=== PATIENT | female | born 1940 | race Caucasian/White ===

== ENCOUNTER 2019-02-03 13:10 | Inpatient (IN) ==
[2019-02-03] MEDS ORDERED: Clindamycin 900 MG/50 ML 900 MG/50 ML IV.SOLN IVPB ONE (13:26)
[2019-02-03] MEDS ORDERED: Ringers Solution, Lactated 1,000 ML IVC SCH ×2 (13:30→23:45)
[2019-02-03 14:23] LABS: White Blood Count 6.7 K/mcL (4.3-11.1)
[2019-02-03 14:24] LABS: Basophils % 0.5 %; Eosinophils # 0.1 K/mcL (0.0-0.6); Eosinophils % 1.1 %; Hematocrit 37.5 % (35.3-44.9); Hemoglobin 12.2 g/dL (11.5-15.4); Immature Granulocytes % 0.2 % (0-4); Lymphocytes # 0.6 K/mcL (0.6-4.6); Lymphocytes % 8.7 %; Mean Corpuscular HGB Conc 32.5 g/dL (31.6-35.5); Mean Corpuscular Hemoglobin 28.4 pg (28.0-33.3); Mean Corpuscular Volume 87.2 fL (83.0-100.0); Mean Platelet Volume 9.9 fL (9.4-12.4); Monocytes # 0.6 K/mcL (0.0-1.3); Monocytes % 8.7 %; Neutrophils # 5.4 K/mcL (1.6-8.9); Platelet Count 251 K/mcL (140-400); Red Cell Distribution Width 14.2 % (11.5-14.5); Segmented Neutrophils % 80.8 %
--- NOTE | 2019-02-03 14:56 | History & Physical Report ---
Date of Encounter: 02/03/19 Time of Encounter: 14:56 24 Hour HP Update - Instructions Instructions: If the History and Physical is less than 30 days old and was completed prior to A.M. admission and or procedure and has NOT been updated on calendar day of procedure please complete this update prior to performing procedure. - Update Patient reports changes in Medical Condition: No Changes in examination, assessment, or condition: No Changes in Medication: No Preop tests/diagnostics Reviewed: Yes Surgery Remains Indicated: Yes Consent for Planned Operative Procedure(s) Verified: Yes - Pre-Operative Checklist Preoperative Checklist Indicated: No Prophylactic Antibiotic Ordered: Yes Is VTE Prophylaxis Indicated?: Yes
--- NOTE | 2019-02-03 15:04 | Anesthesia Evaluation PreOp ---
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) Anesthesia History: Past Anesthesia (L- hip Nail, MICHELE, knee) : No Alcohol Use: none Drug use: none Medications and Allergies HYDROcodone/Acet 5/325 mg [[place] 5-325 mg] 1 tab PO Q6H PRN 4 Days #16 tab 02/01/19 [Rx] hydroCHLOROthiazide [Hydrochlorothiazide] 12.5 mg PO DAILY 02/03/19 [History] Allergy/AdvReac Type Severity Reaction Status Date / Time Penicillins Allergy Hives Verified 02/03/19 13:34 - Meds/Allergy Pre-op Review Medications Reviewed: Yes Allergies Reviewed: Yes Beta Blockers on Current Med List: No Anesthesia Results - Labs 02/03/19 14:03 Laboratory Tests 01/11/19 02/03/19 09:54 14:03 WBC 6.7 Hgb 12.2 Hct 37.5 Plt Count 251 Sodium 138 Potassium 3.9 Chloride 102 Carbon Dioxide 29 BUN 11 Creatinine 0.68 - Imaging EKG: report reviewed (SR RBBB) Additional studies: Echocardiogram Name: Nallely Topete Date of Study: 05/28/2018 EV/EV echocardiogram Impressions: LVEF 60%. Mild left ventricular diastolic dysfunction. Normal right ventricular structure and function. Mild-moderate mitral regurgitation. Mild aortic regurgitation. Mild-moderate tricuspid regurgitation. 01/11/19 EFD-70% No Ischemia Max HR-98 Anesthesia Exam O2 Sat Height 1.57 m Weight 99.79 kg O2 Sat by Pulse Oximetry 97 Vital Signs Temp Pulse Resp BP Pulse Ox 97.8 F 97 18 149/82 97 02/03/19 13:23 02/03/19 13:23 02/03/19 13:23 02/03/19 13:23 02/03/19 13:23 NPO (# of Hours): > 8 hrs Pain Scale: 0 Pain Scale Used: Numeric (1 - 10) - HEENT Pupil (Motor): Pupils equal, EOMI Mallampati: III Teeth: Edentulous Oral Opening: Greater than 3 - LOG SORTER LOC: Oriented LOG SORTER Motor: Normal RUE, Normal LUE, Normal RLE, Normal LLE, Normal Face LOG SORTER Sensory: Normal: RUE, LUE, RLE, LLE, Face - Cardiac Rhythm: Regular Murmur: None JVD: No Carotid Bruit: No - Pulmonary Breath Sounds: bilateral Clear Respiratory Effort: Symmetrical Anesthesia Assess/Plan ASA Score: 3 Level of consciousness: Cooperative Anesthetic Plan: General, Regional Nerve Block Regional Nerve Block Plan: Supraclavicular Autologous Blood: Yes Monitoring Plan: Standard Monitors Recovery Plan: PACU
[2019-02-03] MEDS ORDERED: *HR* Succinylcholine 200 MG/10 ML VIAL IVP ONE (15:09)
[2019-02-03] MEDS ORDERED: *HR* FentaNYL (PF) 100 MCG/2 ML VIAL ONE (15:09)
[2019-02-03] MEDS ORDERED: Lidocaine -MPF 2% 2 ML VIAL ONE (15:09)
[2019-02-03] MEDS ORDERED: Dexamethasone 4 MG/ML VIAL ONE (15:09)
[2019-02-03] MEDS ORDERED: Ondansetron 4 MG/2 ML VIAL ONE (15:09)
[2019-02-03] MEDS ORDERED: *HR* Midazolam HCl 2 MG/2 ML VIAL ONE (15:10)
[2019-02-03] MEDS ORDERED: *HR* Propofol 200 MG/20 ML VIAL IVP ONE (15:10)
[2019-02-03] MEDS ORDERED: Lidocaine -MPF 4% 5 ML AMPUL ONE (15:12)
[2019-02-03] MEDS ORDERED: Ethanol\\Acetic Acid\\Na Ace\\Ben 1,000 ML IRRIG.SOLN IR ONE (15:14)
[2019-02-03] MEDS ORDERED: *HR* OxyCODONE Immed Rel 5 MG TABLET PO PRN ×2 (15:24→23:45)
[2019-02-03] MEDS ORDERED: *HR* HYDROmorphone (PF) 1 MG/ML SYRINGE IVP PRN (15:24)
[2019-02-03] MEDS ORDERED: *HR* Promethazine 25 MG/ML VIAL IVP PRN (15:24)
[2019-02-03] MEDS ORDERED: Ondansetron 4 MG/2 ML VIAL IVP ONE (15:24)
[2019-02-03] MEDS ORDERED: Ropivacaine/PF 0.5% 30 ML VIAL ONE (15:41)
[2019-02-03] MEDS ORDERED: ROPIVACAINE/PF/NS 0.25% 1 EACH SYRINGE INTRAART ONE (15:41)
--- NOTE | 2019-02-03 16:18 | Anesthesia Procedures ---
Date of Encounter: 02/03/19 Time of Encounter: 16:00 Procedures: Anesthesia - Nerve Block Procedure Date: 02/03/19 Time: 16:00 Allergies/Adv Reactions: PCN Pre-op Diagnosis: Right shoulder rotator cuff arthropathy Surgical Procedure: Right total shoulder replacement, reverse Checklist: Correct Patient Identifier, Correct procedure, History checked Correct side: Left Blood Thinner: No Monitor Applied: EKG, BP, Pulse Oximetry Supplemental Oxygen via Nasal Cannula (L/min): 2 Sedation: Versed (mg): 1 Sedation: Fentanyl (mcg): 100 Indication: Post Op Analgesia Pre-op Neuro Deficits: No Block Type: Supraclavicular, Other (SCP/ICB) Catheter placed: No Sterile Technique: Yes Ultrasound used: Yes Anatomy identified: Yes Visual spread of Local: Yes Neuro Stimulation: No Blood on Needle Aspiration: No Smooth Injection of Local: Yes Pain with Injection of Local: No Prep: Chlorhexadine Needle: 22 x 50 mm Stimuplex Local: Ropivacaine (Ropivicaine 0.5% 30ml supraclavicular, ropivicaine 0.25% 20ml SCP/ICB), Other (Decadron 8mg) Volume (cc): 50 Number of Attempts: 1 Complications: None/effective block Vitals: Vital Signs Temperature 97.8 F 02/03/19 13:23 Pulse Rate 97 02/03/19 13:23 Respiratory Rate 18 02/03/19 13:23 Blood Pressure 149/82 02/03/19 13:23 O2 Sat by Pulse Oximetry 97 02/03/19 13:23 Temperature 97.8 F 02/03/19 13:23 Pulse Rate 95 02/03/19 16:18 Respiratory Rate 18 02/03/19 13:23 Blood Pressure 124/69 02/03/19 16:18 O2 Sat by Pulse Oximetry 98 02/03/19 16:18
--- NOTE | 2019-02-03 16:37 | Electrocardiograph Report ---
[address] [address] Test Date: 2019-02-03 Pat Name: Nallely Topete Department: 106 Room: Gender: F Branch Director: : 1940 Requested By: Afshin Maldonado Order Number: [id number] Reading MD: Afshin Mariano Measurements Intervals [place] Rate: 94 P: 30 CO: 143 QRS: 22 QRSD: 123 T: -15 QT: 361 QTc: 412 Interpretive Statements SINUS RHYTHM RIGHT BUNDLE BRANCH BLOCK Electronically Signed On 02-03-2019 16:36:13 EDT by Afshin Mariano
--- NOTE | 2019-02-03 17:52 | Orthopedic Operative Note ---
Date of procedure: 02/03/19 Pre-op diagnosis: Displaced left comminuted proximal humerus fracture Post-op diagnosis: same Procedure: Procedure: Total Shoulder Replacment Reverse, left Estimated blood loss: 100 cc Hardware: Metal and polyethylene replacement: Arthrex 24, +4, 30 mm, screw glenoid baseplate, 4 locking 5.5 screw, 42+4 glenosphere, 6 humeral stem, poly insert 6 constrained Procedural Notes: Comminuted displaced fracture proximal humerus with complete massive rotator cuff tear chronic Operative procedure: The patient was brought to the operating room and placed on the operating room table. After general anesthesia was administered the operative shoulder was examined. Findings were noted. The patient was placed in the modified beachchair position. All pressure points were padded appropriately. And the head was stabilized in the neutral position. The operative extremity was prepped and draped in the sterile surgical fashion. The patient received IV antibiotics prior to skin incision. A standard deltopectoral approach was made to the operative shoulder. Incision was made to the skin and subcutaneous tissue,hemo stasis was obtained with Bovie cautery. Using careful blunt dissection the cephalic vein was identified and mobilized medially. The deltopectoral interval was developed and the clavipectoral fascia was incised. The patient had a displaced proximal humerus fracture, patient had massive rotator cuff tear associated with this this is most likely chronic based on appearance of the tuberosity. The proximal fragment was removed. Anterior and posterior Bankart retractors were placed to expose the glenoid. The glenoid guide was seated and the centering hole was made. It was reamed with the appropriate reamer. The 24, +4, 30 mm screw, baseplate was seated and secured with 4 locking 5.5 screw. The baseplate was irrigated and dried and the 42+4 Glenosphere was seated and secured with the Myrick taper. The Myrick taper was tested and found to be secure, glenosphere fixation was secondarily secured with the central screw. The humerus was redislocated and prepared with the diaphyseal reamers, followed by a broaching process up to the appropriate size 6 in 20 degrees retroversion. Trial reduction found the shoulder to be relocatable. Trial components were removed and 6 stem was impacted in place when he degrees retroversion. Trial reduction found the shoulder to be relocatable and stable with the appropriate 6 constrained Sadie. Trial component was removed and the real implant was seated and secured the shoulder was reduced. The shoulder had excellent motion and excellent stability and no evidence of dislocation. The deep tissue was irrigated with pulse irrigation. The deltopectoral interval was closed with a running #1 PDS suture, subcutaneous tissue was irrigated and closed with 0 PDS suture, the skin was closed with Dermabond. The patient was placed in a sterile dressing, abduction brace and extubated. The patient was then transferred to the recovery room in stable condition. Anesthesia: GETA Surgeon: Abdifatah Lindsey Was there an ex assistant/program director present: No Estimated blood loss (cc): 100 Condition: stable Disposition: PACU
[2019-02-03] MEDS ORDERED: *HR* Enoxaparin 30 MG/0.3 ML SYRINGE SQ SCH (18:00)
[2019-02-03 19:04] LABS: Hematocrit 37.4 % (35.3-44.9); Hemoglobin 12.2 g/dL (11.5-15.4)
[2019-02-03] MEDS ORDERED: traMADol 50 MG TABLET PO PRN (23:45)
[2019-02-03] MEDS ORDERED: Temazepam 15 MG CAPSULE PO PRN (23:45)
[2019-02-03] MEDS ORDERED: *HR* OxyCODONE/APAP 5/325 TABLET PO PRN (23:45)
[2019-02-03] MEDS ORDERED: Ondansetron 4 MG/2 ML VIAL IVP PRN (23:45)
[2019-02-03] MEDS ORDERED: MOM Conc 10 ML UD.LIQ PO PRN (23:45)
[2019-02-03] MEDS ORDERED: Clindamycin 900 MG/50 ML 900 MG/50 ML IV.SOLN IVPB SCH (23:45)
[2019-02-03] MEDS ORDERED: Sennosides 8.6 MG TABLET PO PRN (23:45)
[2019-02-04] MEDS: Clindamycin 900 MG/50 ML 900 MG/50 ML IV.SOLN IVPB SCH ×2 (00:41→07:29)
--- NOTE | 2019-02-04 02:14 | Anesthesia Evaluation Post Op ---
Date of Encounter: 02/04/19 Time of Encounter: 18:42 - Discharge PostOp Status: Transfer Patient to floor (Patient's vital signs have been reviewed. Patient is stable postoperatively and has adequately recovered from anesthesia. Patient is determined to have stable airway patency and respiratory function including respiratory rate and oxygen saturation. Patient has a stable heart rate, blood pressure and adequate hydration. Patients mental status is acceptable. Patients temperature is appropriate. Pain and nausea are adequately controlled.)
[2019-02-04] MEDS ORDERED: *HR* Enoxaparin 30 MG/0.3 ML SYRINGE SQ SCH (06:00)
--- NOTE | 2019-02-04 06:41 | Orthopedics Progress Note ---
Date of Encounter: 02/04/19 Time of Encounter: 06:41 Subjective Interval history: Patient was seen this morning doing well without complaints. Afebrile vital signs stable. Operative extremity: Neurovascularly intact Dressing clean dry and intact Calves nontender Assessment and plan: Continue with postoperative care Plan for discharge today Objective Vital signs: Vital Signs Temp Pulse Resp BP Pulse Ox 02/04/19 03:40 97.9 F 83 15 132/72 97 02/03/19 22:33 96 02/03/19 19:40 97.5 F L 87 14 126/68 92 02/03/19 19:05 97.5 F L 90 14 144/82 02/03/19 18:52 98.2 F 93 18 143/70 98 02/03/19 18:42 94 18 141/68 98 02/03/19 18:32 98.2 F 92 18 146/61 90 02/03/19 18:22 92 18 152/77 92 02/03/19 18:12 85 16 151/58 94 02/03/19 18:02 98.0 F 82 16 149/64 93 02/03/19 16:47 98 155/73 98 02/03/19 16:32 103 141/71 98 02/03/19 16:18 95 124/69 98 02/03/19 16:06 99 155/69 100 02/03/19 13:23 97.8 F 97 18 149/82 97 Intake and Output 02/03/19 02/03/19 02/04/19 15:59 23:59 07:59 Intake Total 50 / 50 Output Total 100 / 100 Balance -100 / -100 50 / 50 Intake: IV Fluids 50 / 50 Cleocin Premix 900 MG/50 ML 900 50 / 50 mg In 50 ml @ 50 mls/hr IVPB Q8HR [facility] Rx#:[id number] Output: Estimated Blood Loss 100 / 100 Other: # Voids 1 1 Weight 99.79 kg Blood Glucose* 121 124 - Labs CBC & BMP: 02/03/19 18:46 Labs: Abnormal lab results POC Glucose 121 mg/dL (70-99) H 02/03/19 13:54 - VTE Documentation of Mechanical Device: Venous foot pump, device Consult Discharge Plan - Plan Referrals: Álvaro Forrest, CIGARETTE SELLER [Primary Care Provider] - Prescriptions: OxyCODONE Immed Rel [Roxicodone 5 MG] 5 mg PO Q6HR PRN 5 Days #20 tablet PRN Reason: Pain
--- NOTE | 2019-02-04 06:44 | Discharge Summary ---
Orders not resulted at time of discharge: Pending orders 02/03/19 14:59 XR shoulder complete LT [XR] Routine 02/03/19 15:23 US anesthesia pain block [US] Routine 02/03/19 17:38 Surgical Pathology [PTH] Routine 02/04/19 04:00 Basic Metabolic Panel DAILY Hemoglobin and Hematocrit [HEME] DAILY 02/05/19 04:00 Basic Metabolic Panel DAILY Hemoglobin and Hematocrit [HEME] DAILY Date of Encounter: 02/04/19 Time of Encounter: 06:43 - Discharge Diagnosis (1) Displaced fracture of proximal end of left humerus Priority: Primary Status: Acute (2) Status post reverse total shoulder replacement Priority: Primary Status: Acute Qualifiers: Laterality: left Qualified Code(s): Z96.612 - Presence of left artificial shoulder joint (3) Diabetes mellitus type 2 in obese Priority: Secondary Status: Chronic (4) Morbid obesity with BMI of 40.0-44.9, adult Priority: Secondary Status: Chronic - Hospital Course Hospital course: Ms. Topete is a 78 year old female The patient had an uneventful postoperative course. They received antibiotics and physical therapy and were discharged in stable condition. There will fol low-up in the office in 2 weeks. - Time Spent with Patient Total time spent providing and/or coordinating discharge services: - Discharge Medications Prescriptions: New OxyCODONE Immed Rel [Roxicodone 5 MG] 5 mg PO Q6HR PRN 5 Days #20 tablet PRN Reason: Pain Continued hydroCHLOROthiazide [Hydrochlorothiazide] 12.5 mg PO DAILY Discontinued HYDROcodone/Acet 5/325 mg [[place] 5-325 mg] 1 tab PO Q6H PRN 4 Days #16 tab PRN Reason: Pain Home Medications: OxyCODONE Immed Rel [Roxicodone 5 MG] 5 mg PO Q6HR PRN 5 Days #20 tablet 02/03/19 [Rx] hydroCHLOROthiazide [Hydrochlorothiazide] 12.5 mg PO DAILY 02/03/19 [History] Allergies/Adverse Reactions: Allergy/AdvReac Type Severity Reaction Status Date / Time Penicillins Allergy Hives Verified 02/03/19 13:34 Primary care physician: Álvaro Forrest CNP Consults: 02/03/19 23:45 Consult to Occupational Therapy [CONS] Routine Comment: post shoulder surgery Reason for Consult: post shoulder surgery Does patient have active BEDREST order?: No Is patient medically & hemodynamically stable?: Yes Consult to Physical Therapy [CONS] Routine Comment: post shoulder surgery Reason for Consult: post shoulder surgery Does patient have active BEDREST order?: No Is patient medically & hemodynamically stable?: Yes Consult to Research [employer] [CONS] Routine Reason for SW Consult: shoulder surgery RT Post Op Consult [CONS] Routine - VTE Documentation of Mechanical Device: Venous foot pump, device Labs on day of discharge: Labs from last 24 hours 02/03/19 02/03/19 02/03/19 18:46 14:03 13:54 WBC 6.7 RBC 4.30 Hgb 12.2 12.2 Hct 37.4 37.5 MCV 87.2 MCH 28.4 MCHC 32.5 RDW 14.2 Plt Count 251 MPV 9.9 Immature Gran % 0.2 Seg Neutrophils % 80.8 Lymphocytes % 8.7 Monocytes % 8.7 Eosinophils % 1.1 Basophils % 0.5 Neutrophils # 5.4 Lymphocytes # 0.6 Monocytes # 0.6 Eosinophils # 0.1 Basophils # 0.0 POC Glucose 121 H - Patient Status Disposition: Home, Self-Care Condition: Good Functional capacity at discharge: independent ambulation Overall status at discharge: patient is progressing back to baseline - Discharge Instructions Follow Up With: Álvaro Forrest, TELEVISION PRESENTER [Primary Care Provider] -
[2019-02-04 06:57] LABS: Hematocrit 38.8 % (35.3-44.9)
[2019-02-04 07:09] LABS: BUN/Creatinine Ratio 19 (6-26); Blood Urea Nitrogen 10 mg/dL (8-23); Calcium 9.6 mg/dL (8.6-10.3); Carbon Dioxide 25 mEq/L (23-29); Chloride 104 mEq/L (98-107); Glucose 130 mg/dL (70-105); Osmolality,Calculated 289 (280-300); Potassium 4.9 mEq/L (3.5-5.1); Sodium 139 mEq/L (136-145); eGFR For African Americans > 60 (> 60); eGFR For Non-African Americans > 60 (> 60)
[2019-02-04] MEDS ORDERED: hydroCHLOROthiazide 25 MG TABLET PO SCH (09:00)
[2019-02-04 10:54] VITALS: BP 100/58
--- NOTE | 2019-02-04 18:19 | Event Note ---
Date of Encounter: 02/04/19 Time of Encounter: 11:30 PCR - POD#1 s/p left TSR reverse 02/03 secondary to fracture Patient seen at bedside, without complaints. A&O x 3 Afebrile, vital signs stable. dressings c/d/i, NV intact distally Labs reviewed. H/H - 13.0/38.8 stable, asymptomatic Pain control: adequate Participating in PT. NO SHOULDER MOTION, MUST STAY IN BRACE. may do gentle elbow and wrist motion She is recommended for ECF as she is unsteady on her feet and typically uses a walker but is now NWB to LUE. practiced with hemiwalker today. Patient and family both adament that she will go home today and refusing ECF despite reviewing risks of falling. Patient feels she has enough support at home and agreeable to not get up or walk without assistance. Dr. Lindsey notified and ok with her going home. All questions and concerns addressed. Educated on use of incentive spirometer. Encouraged ambulation and proper hydration. Patient educated on post-operative restrictions and post-operative care. Assessment and plan: Continue with postoperative care Discharge plan: Home with home health, discharge today.
== END 2019-02-04 13:40 | disposition home or self-care (01) | DRG 483 ==
LOC: 3NENU 13:10 → SAMDAY 13:10 → 3NENU 13:11 → SAMDAY 02-04 13:40 → 3NENU 02-11 05:16
PROVIDERS: ADMIT Orthopaedic Surgery; ATTEND Orthopaedic Surgery

== ENCOUNTER 2019-04-17 17:10 | Inpatient (IN) ==
[2019-04-17 21:02] LABS: Basophils % 0.3 %; Eosinophils % 0.3 %; Hematocrit 33.6 % (35.3-44.9); Hemoglobin 10.6 g/dL (11.5-15.4); Immature Granulocytes % 0.7 % (0-4); Lymphocytes # 0.7 K/mcL (0.6-4.6); Lymphocytes % 9.5 %; Mean Corpuscular HGB Conc 31.5 g/dL (31.6-35.5); Mean Corpuscular Hemoglobin 27.5 pg (28.0-33.3); Mean Platelet Volume 10.1 fL (9.4-12.4); Monocytes # 0.8 K/mcL (0.0-1.3); Monocytes % 10.3 %; Neutrophils # 5.9 K/mcL (1.6-8.9); Platelet Count 259 K/mcL (140-400); Red Blood Count 3.86 M/mcL (3.82-4.97); Red Cell Distribution Width 14.8 % (11.5-14.5); Segmented Neutrophils % 78.9 %; White Blood Count 7.5 K/mcL (4.3-11.1)
[2019-04-17 21:09] LABS: INR 1.2; Prothrombin Time 13.8 Seconds (9.4-12.1)
[2019-04-17 21:21] LABS: Alanine Aminotransferase 17 Units/L (7-52); Albumin/Globulin Ratio 1.1 (1.1-2.2); Alkaline Phosphatase 94 Units/L (34-104); Aspartate Amino Transferase 15 Units/L (13-39); BUN/Creatinine Ratio 37 (6-26); Blood Urea Nitrogen 13 mg/dL (8-23); Calcium 9.1 mg/dL (8.6-10.3); Carbon Dioxide 29 mEq/L (23-29); Chloride 101 mEq/L (98-107); Globulin 2.8 g/dL (2.4-3.5); Glucose 111 mg/dL (70-105); Osmolality,Calculated 283 (280-300); Potassium 4.5 mEq/L (3.5-5.1); Sodium 136 mEq/L (136-145); Total Protein 5.8 g/dL (6.4-8.9); eGFR For African Americans > 60 (> 60); eGFR For Non-African Americans > 60 (> 60)
[2019-04-17] MEDS ORDERED: Naloxone 0.4 MG/ML INJ IVP PRN (23:36)
[2019-04-17] MEDS ORDERED: Ondansetron 4 MG/2 ML VIAL IVP PRN (23:36)
[2019-04-17] MEDS ORDERED: Acetaminophen 325 MG TABLET PO PRN (23:36)
[2019-04-17] MEDS ORDERED: traMADol 50 MG TABLET PO PRN (23:36)
[2019-04-17] MEDS ORDERED: Dextrose Gel 15 GM/37.5 ML TUBE PO PRN ×2 (23:42)
[2019-04-17] MEDS ORDERED: D5% in Water 1,000 ML IVC PRN (23:42)
[2019-04-17] MEDS ORDERED: *HR* Dextrose 50 % in Water (Syg) 50 ML SYRINGE IVP PRN (23:42)
--- NOTE | 2019-04-18 00:20 | Internal Med History&Physical ---
Date of Encounter: 04/17/19 Time of Encounter: 22:30 Internal Medicine - H&P: HPI Chief complaint: Left arm pain Admitted From: Emergency Dept Plans for Post Hospital Care: Home History of present illness: Ms. Topete is a 78 year old female w/PMH of skin cancer of the face and diabetes controlled by diet presents from the ED w/CC of weakness for the past several weeks as well as poor appetite. Patient and daughter report that the pt. was attempting to get out of her chair today and d/t her weakness she slid out of th e chair onto the floor. Daughter denies hard fall, LOC, or striking her head. Patient then began having left arm pain and edema which was no alleviated by anything. Patient's daughter reports the pt. had total left shoulder replacement in January 2019. Pt. was told on f/u that the shoulder had rotated out since the surgery. Patient reports only mild pain on exam. Patient reports recent UTI and pain in bilateral feet from the way she was laying on them when she slid out of her chair but denies recent illness, fever, chills, nausea, vomiting, headache, changes in vision, unusual bleeding, CP, SOB, cough, chest congestion, abdominal pain, diarrhea, constipation, numbness, tingling, dizziness, lightheadedness, pre-syncope, or syncope. Past Med Surg Social Fam HX - Past Medical History Source: patient, old records reviewed, obtained from family Medical history: cancer (Face & Cervical/Uterine), other Additional medical history: SKIN CANCER OF FACE. Cervical/Uterine cancer Psychiatric history: no psych history - Past Surgical History Surgical History: hip replacement, hysterectomy, orthopedic, other (Left shoulder) Additional surgical history: LEFT KNEE/LEFT HIP SX. cervical CA. left shoulder - Social History Smoking Status: Never smoker Smokeless Tobacco Status: No Alcohol use: none Drug use: none Current living situation: Home, With Family Activity Level: Independent ambulation, Uses cane/walker Recent Out of Country Travel Within the Last 8 Weeks: No Exposure or Possible Exposure to Illness During Travel: No - Family History Father Race: Family Member Ethnicity: Non- Twin of Family Member: Yes, Fraternal Living Status: Age at : 57 Cause of : COPD Hx Family Cardiac Disorders: Yes (NM, CAD) Hx Family Respiratory Disorders: Yes (COPD) Mother Race: Twin of Family Member: Yes, Fraternal Living Status: Age at : 58 Cause of : Metastatic cancer Hx Family Cancer: Yes (Renal/Metastatic) Hx Family Endocrine Disorder: Yes (DM) Brother Race: Family Member Ethnicity: Non- Living Status: Age at : 60 Cause of : DM complications Hx Family Endocrine Disorder: Yes (DM) Sister Race: Family Member Ethnicity: Non- Living Status: Age at : 35 Cause of : Massive NM Hx Family Cardiac Disorders: Yes (NM @ 35 yo) Grandmother Race: Family Member Ethnicity: Non- Living Status: Cause of : DM complications Hx Family Endocrine Disorder: Yes (DM) Internal Medicine - H&P: Meds Cholecalciferol (D-3) [Vitamin D] 2,000 unit PO DAILY tablet 04/17/19 [Rx] Enoxaparin [Lovenox] 40 mg SQ DAILY 30 Days syr 04/17/19 [Rx] Ondansetron [Zofran] 4 mg IVP Q4H PRN vial 04/17/19 [Rx] Potassium Chloride 10 meq PO BIDWM tab.er.prt 04/17/19 [Rx] Allergy/AdvReac Type Severity Reaction Status Date / Time Amoxicillin Allergy Hives Verified 04/12/19 08:05 Penicillins Allergy Hives Verified 04/12/19 08:05 All Systems PM: A 10-system review of systems was performed and is negative for pertinent findings except as documented above in the HPI. - Constitutional Constitutional: as per HPI, fatigue, weakness, no chills, no fever(s), no night sweats - EENT Eyes: no change in vision, no discharge, no pain, no photophobia Ears: no ear discharge, no ear pain, no tinnitus Nose, mouth and throat: no dysphagia, no nasal discharge, no neck pain, no sore throat - Breasts Breasts: as per HPI - Cardiovascular Cardiovascular ROS IM: no chest pain, no diaphoresis, no dyspnea, no lightheadedness, no palpitations, no syncope - Respiratory Respiratory: no cough, no dyspnea, no wheezing, no excessive phlegm production - Gastrointestinal Gastrointestinal: as per HPI, no abdominal pain, no diarrhea, no hematemesis, no hematochezia, no melena, no nausea, no vomiting - Genitourinary Genitourinary: no change in urinary stream, no dysuria, no flank pain, no hematuria Menstruation: as per HPI - Musculoskeletal Musculoskeletal ROS IM: as per HPI, limited range of motion, other (Edema of LUE), no numbness, no tingling - Integumentary Integumentary IM: as per HPI, other (Scaling on LUE), no rash, no unusual bruising - Neurological Neurological ROS: no confusion, no convulsions, no focal weakness, no numbness, no tingling, no tremor(s) - Psychiatric Psychiatric: as per HPI - Endocrine Endocrine IM: as per HPI - Hematologic/Lymphatic Hematologic/Lymphatic: no easy bruising - Allergic/Immunologic Allergic/Immunologic: as per HPI - Constitutional Vitals: Temp Pulse Resp BP Pulse Ox 98.3 F 88 20 150/71 96 04/17/19 22:48 04/17/19 22:48 04/17/19 22:48 04/17/19 22:48 04/17/19 22:48 General appearance: Present: cooperative, A&O X 3, pleasant, no acute distress, obese, answers questions appropriately Exam: Patient examined at bedside. Patient resting in bed reporting no pain currently. Patient denies any other sx or complaints on examination. VS: 98.3F temp, HR 80, RR 20, BP 150/71, SPO2 96% on room air. - Head Head exam: Present: atraumatic, normocephalic - Eye Eye exam: Present: PERRL, conjuntiva pink, sclera anicteric Pupils: Present: PERRL - ENT ENT exam: Present: normal exam - Neck Neck exam general surgery: Present: normal inspection, supple, trachea midline. Absent: lymphadenopathy - Respiratory Respiratory exam: Present: CTAB. Absent: accessory muscle use, rales, rhonchi, wheezes - Cardiovascular Cardiovascular exam: Present: RRR, +S1, +S2. Absent: diastolic murmur, gallop, rubs, systolic murmur - GI/Abdominal GI/Abdominal exam: Present: normal bowel sounds, soft, no peritoneal signs. Absent: distended, tenderness - Rectal Rectal exam: Present: deferred - Additional comments: exam deferred. - Extremities Exam Extremities exam: Present: tenderness (LUE), warm, radial pulses palpable and symmetrical. Absent: calf tenderness, cyanotic, pedal edema - Back Exam Back exam: Present: normal inspection - Neurological Exam Neurological exam: Present: alert, CN II-XII intact, oriented X3, no focal deficits. Absent: pronater drift, facial droop, speech deficit - Psychiatric Psychiatric exam: Present: normal affect, normal mood - Skin Skin exam: Present: dry, intact Internal Med - H&P Results - Labs CBC & Chem 7: 04/17/19 20:42 04/17/19 20:42 Labs: Short CBC 04/17/19 Range/Units 20:42 WBC 7.5 (4.3-11.1) K/mcL Hgb 10.6 L (11.5-15.4) g/dL Hct 33.6 L (35.3-44.9) % Plt Count 259 (140-400) K/mcL Neutrophils # 5.9 (1.6-8.9) K/mcL BMP 04/17/19 20:42 Sodium 136 Potassium 4.5 Chloride 101 Carbon Dioxide 29 BUN 13 Creatinine 0.35 L Glucose 111 H Calcium 9.1 Liver Function 04/17/19 Range/Units 20:42 Total Bilirubin 1.0 (0.3-1.0) mg/dL AST 15 (13-39) Units/L ALT 17 (7-52) Units/L Alkaline Phosphatase 94 (34-104) Units/L Albumin 3.0 L (3.5-5.7) g/dL - Impressions ITS Impressions Chest X-Ray 04/17/19 20:13 IMPRESSION: 1. Bibasilar atelectasis. 2. Cardiomegaly. 3. Stable displacement/subluxation of the left shoulder arthroplasty. D/ / 04/17/2019 21:34:48 Hilaria Montes MD / [facility] Interpreting Provider: Hilaria Montes MD - Diagnostic Studies Chest x-ray Additional comments: Impressions Chest X-Ray 04/17/19 20:13 IMPRESSION: 1. Bibasilar atelectasis. 2. Cardiomegaly. 3. Stable displacement/subluxation of the left shoulder arthroplasty. D/ / 04/17/2019 21:34:48 Hilaria Montes MD / [facility] Interpreting Provider: Hilaria Montes MD Other Images Additional comments: Impressions EXAMINATION: 2 XRAY VIEWS OF THE LEFT FOREARM 04/17/2019 1:14 pm COMPARISON: None HISTORY: ORDERING SYSTEM PROVIDED HISTORY: bruising and swelling post fall Initial exam FINDINGS: Generalized soft tissue edema about the forearm. The bone mineralization is decreased. Incomplete evaluation of oblique distal humeral diaphyseal fracture. XR/XR forearm LT IMPRESSION: Soft tissue swelling with no fracture of the forearm. Incomplete evaluation of distal humeral fracture. D/ / 04/17/2019 15:07:04 Warner Ruelas MD / [facility] Interpreting Provider: Warner Ruelas MD INATION: 2 XRAY VIEWS OF THE LEFT HUMERUS 04/17/2019 1:14 pm COMPARISON: None. HISTORY: ORDERING SYSTEM PROVIDED HISTORY: bruising and swelling post fall Initial FINDINGS: Total left shoulder arthroplasty. The positioning of the prosthesis is stable. There is an oblique fracture of the mid-distal margin of the humeral diaphysis with angular deformity and overriding. XR/XR humerus LT IMPRESSION: Overriding angulated distal humeral diaphyseal fracture. D/ / 04/17/2019 15:07:10 Warner Ruelas MD / [facility] Interpreting Provider: Warner Ruelas MD - Assessment and Plan (1) Displaced fracture of proximal end of left humerus Current Visit: Yes Status: Acute Assessment and plan: Acute displaced fracture of the proximal end of the left humerus. 2V XR of the left humerus shows total left shoulder arthroplasty. The positioning of the prosthesis is stable. There is no oblique fracture of the mid distal margin of the humeral diaphysis with angular deformity and overriding. Orthopedic consult ordered and was discussed when pt. was at [facility]. NPO now. Stair-step pain medications for pain mgmt. Patient's daughter reports the patient is opioid naive and cannot tolerate high doses of opioids. Bed rest. Falls/safety precautions. Up with assist. EKG for pre-surgery shows . Limited Echocardiogram ordered d/t previous on 05/28/2018 which showed LVEF of 60%, mild left ventricular diastolic dysfunction, normal right ventricular structure and function, mild to moderate mitral regurgitation, mild aortic regurgitation, mild to moderate tricuspid regurgitation, and no pulmonary hypertension. 1V CXR shows bibasilar atelectasis, cardiomegaly, and stable displacement/subluxation of the left shoulder arthroplasty. Patient is high risk for further morbidity and complications d/t current fx of left humerus, current displacement/subluxation of left shoulder arthroplasty, failure to thrive, generalized weakness, acute anemia, DM, and obesity. Inpatient. (2) Generalized weakness Current Visit: Yes Status: Acute Assessment and plan: Acute weakness for the past several weeks w/report of reduced PO intake. Patient reports poor appetite. Nutrition consult ordered for PO supplementation. Pt. prefers chocolate Ensure/Boost. Falls/safety precautions and up with assist. Strict I&O. (3) Failure to thrive in adult Current Visit: Yes Status: Acute Assessment and plan: Acute weakness for the past several weeks w/report of reduced PO intake. Patient reports poor appetite. Nutrition consult ordered for PO supplementation. Pt. prefers chocolate Ensure/Boost. Falls/safety precautions and up with assist. Strict I&O. (4) Anemia Current Visit: Yes Status: Acute Assessment and plan: Hx of acute anemia. Hgb 10.6, up from 9.7 on 04/16. Hct 33.6, up from 30.9 on 04/16. Monitor pt. closely for signs of bleeding. Monitor f/u labs. Type and screen ordered for post-surgery monitoring. Qualifiers: Anemia type: unspecified type Qualified Code(s): D64.9 - Anemia, unspecified (5) Diabetes mellitus type 2 in obese Current Visit: Yes Status: Chronic Assessment and plan: Hx of diabetes controlled by diet. A1c in a.m. labs. BG checks Q6HR while NPO and ACHS when no longer NPO. Low-dose correction sliding scale insulin Q6HR while NPO and ACHS when no longer NPO. Hypoglycemic protocol. (6) DVT prophylaxis Current Visit: Yes Status: Acute Assessment and plan: Bilateral SCDs on LEs for DVT prophylaxis d/t impending surgery. - Time Spent With Patient Total time spent is greater than 50% in coordination of care (as documented) at patient's floor/unit and/or counseling patient: Greater than 35 minutes
[2019-04-18 01:28] LABS: Bilirubin,Urine Small (Negative); Blood,Urine Small (Negative); Clarity,Urine Clear (Clear); Color,Urine Dark Yellow (Yellow); Glucose,Urine (UA) Normal (Normal); Ketones,Urine 15 mg/dL (Negative); Leukocyte Esterase,Urine Trace (Negative); Nitrite,Urine Negative (Negative); PH,Urine 5.5 pH Units (5.0-8.0); Protein,Urine Trace mg/dL (Neg-Trace); Specific Gravity,Urine 1.027 (1.010-1.025); Urobilinogen,Urine Normal (Normal)
[2019-04-18 01:29] LABS: Bacteria,Urine None Seen per hpf (None-Few); Hyaline Casts,Urine None Seen per lpf (None-Few); Squamous Epithelial Cell,Urine Many per lpf (None-Few)
[2019-04-18] MEDS: Insulin LISPRO 300 UNITS/3 ML VIAL SQ SCH ×5 (01:31→21:01)
[2019-04-18] MEDS: *HR* OxyCODONE Immed Rel 5 MG TABLET PO PRN ×3 (01:33→21:05)
[2019-04-18 01:41] LABS: RBC,Urine 0-3 per hpf (0-3)
[2019-04-18 02:23] LABS: Hematocrit 34.1 % (35.3-44.9); Hemoglobin 10.7 g/dL (11.5-15.4); Mean Corpuscular HGB Conc 31.4 g/dL (31.6-35.5); Mean Corpuscular Hemoglobin 27.4 pg (28.0-33.3); Mean Corpuscular Volume 87.4 fL (83.0-100.0); Platelet Count 267 K/mcL (140-400); Red Cell Distribution Width 14.8 % (11.5-14.5); White Blood Count 8.3 K/mcL (4.3-11.1)
[2019-04-18 02:43] LABS: BUN/Creatinine Ratio 30 (6-26); Blood Urea Nitrogen 13 mg/dL (8-23); Carbon Dioxide 30 mEq/L (23-29); Chloride 99 mEq/L (98-107); Cholesterol 162 mg/dL (< 200); Glucose 122 mg/dL (70-105); HDL Cholesterol 27 mg/dL (40-59); LDL Cholesterol,Calculated 106 mg/dL (0-99); Magnesium 2.2 mg/dL (1.6-2.6); Osmolality,Calculated 287 (280-300); Potassium 4.5 mEq/L (3.5-5.1); Sodium 138 mEq/L (136-145); Triglycerides 144 mg/dL (< 150); eGFR For African Americans > 60 (> 60); eGFR For Non-African Americans > 60 (> 60)
[2019-04-18] MEDS ORDERED: Isovue-370 500 ML BOTTLE IVP ONE (05:05)
[2019-04-18 08:32] LABS: Estimated Average Glucose 117 mg/dl
--- NOTE | 2019-04-18 09:53 | Orthopedics Progress Note ---
Date of Encounter: 04/18/19 Time of Encounter: 09:49 Subjective Principal diagnosis: Distal humerus fracture, status post total shoulder Interval history: The patient complains of left elbow pain.. Afebrile vital signs are stable. There is swelling and ecchymosis at the distal elbow on the left.. There is no pain with passive range of motion at the elbow, wrist, or digits. Sensation is intact in the left upper extremity. She is neurovascularly intact with regard to bilateral upper extremities. Assessment : Distal humerus fracture status post total shoulder replacement.. Plan mobilize ,continue analgesics, elevation, surgical fixation per Dr. Lindsey. I have low suspicion for compartment syndrome. Objective Vital signs: Vital Signs Temp Pulse Resp BP Pulse Ox 04/18/19 06:52 97.7 F 68 17 161/82 98 04/18/19 05:19 98.4 F 86 20 140/77 96 04/17/19 22:48 98.3 F 88 20 150/71 96 04/17/19 20:20 98.4 F 92 16 133/71 94 Intake and Output 04/17/19 04/18/19 04/18/19 23:59 07:59 15:59 Intake Total 150 / 150 Output Total 400 / 400 Balance 150 / 150 -400 / -400 Intake: Oral 150 / 150 Output: Catheter 400 / 400 Other: # Bowel Movements 0 Weight 96.8 kg Blood Glucose* 107 99 - Labs CBC & BMP: 04/18/19 01:31 04/18/19 01:31 Labs: Abnormal lab results Hgb 10.7 g/dL (11.5-15.4) L 04/18/19 01:31 Hct 34.1 % (35.3-44.9) L 04/18/19 01:31 MCH 27.4 pg (28.0-33.3) L 04/18/19 01:31 MCHC 31.4 g/dL (31.6-35.5) L 04/18/19 01:31 RDW 14.8 % (11.5-14.5) H 04/18/19 01:31 PT 13.8 Seconds (9.4-12.1) H 04/17/19 20:42 Carbon Dioxide 30 mEq/L (23-29) H 04/18/19 01:31 Creatinine 0.44 mg/dL (0.60-1.20) L 04/18/19 01:31 BUN/Creatinine Ratio 30 (6-26) H 04/18/19 01:31 Glucose 122 mg/dL (70-105) H 04/18/19 01:31 Hemoglobin A1c 5.7 % (-5.6) H 04/18/19 01:31 Serum Total Protein 5.8 g/dL (6.4-8.9) L 04/17/19 20:42 Albumin 3.0 g/dL (3.5-5.7) L 04/17/19 20:42 LDL Cholesterol, Calc 106 mg/dL (0-99) H 04/18/19 01:31 HDL Cholesterol 27 mg/dL (40-59) L 04/18/19 01:31 Cholesterol/HDL Ratio 6.0 (0-4.9) H 04/18/19 01:31 Ur Specific Amelia 1.027 (1.010-1.025) H 04/18/19 01:15 Urine Ketones 15 mg/dL (Negative) H 04/18/19 01:15 Urine Blood Small (Negative) H 04/18/19 01:15 Urine Bilirubin Small (Negative) H 04/18/19 01:15 Ur Leukocyte Esterase Trace (Negative) H 04/18/19 01:15 Urine Microscopic WBC 3-5 per hpf (0-3) H 04/18/19 01:15 Ur Squamous Epith Cells Many per lpf (None-Few) H 04/18/19 01:15 Ur Culture Indicated? YES (NO) A 04/18/19 01:15 Consult Discharge Plan - Plan Referrals: NONE,PCP [Primary Care Provider] -
--- NOTE | 2019-04-18 10:02 | Internal Med Progress Note ---
<Jacek Anderson I - Last Filed: 04/18/19 17:48> Hospitalist Progress Note - Encounter Date of Encounter: 04/18/19 Time of Encounter: 08:50 - Subjective Interval History: Ms. Topete is a 78 year old female with PMH of skin cancer of the face and she is post total shoulder replacement that had rotated out . presented with left arm and elbow pain and swelling after she was attempting to get out of her chair today and d/t her weakness she slid out of the chair onto the floor . Patient reports recent UTI one week ago that was treated with antibiotics but she continues to feel week with poor appetite . today patient is seen and examined , she appears tired , her left upper extrimity is swelling tender with active ROM , denies fever, chills, nausea, vomiting, headache, changes in vision, unusual bleeding, CP, SOB, cough, chest congestion, abdominal pain, diarrhea, constipation, numbness, tingling, dizziness, lightheadedness, pre-syncope, or syncope. - Exam Vitals: Temp Pulse Resp BP Pulse Ox 97.7 F 68 17 161/82 98 04/18/19 06:52 04/18/19 06:52 04/18/19 06:52 04/18/19 06:52 04/18/19 06:52 Exam: General: no acute distress , A&AX3 HEENT: Atraumatic, Normocephaly, sclera unicteric Neck: supple , Full ROM , trachea midline Cardiac: RRR , S1+. S2+ Lungs: Normal Breath Sounds Bilaterally, No Wheeze, Rales, Rhonchi Abdomen: Soft, Non-Tender ,no organomegaly , +bowel sounds Extremities: swelling and echymosis of left upper extrimity with tenderness to palpatiion , intact sensation . Normal Pulses Psychiatric : normal affect, normal mood Nuero : alert, normal gait, oriented X3 - Assessment and Plan (1) Displaced fracture of proximal end of left humerus Current Visit: Yes Status: Acute Assessment and Plan: Patient is post total shoulder replacement that had rotated out presented with left arm and elbow pain and swelling after she was attempting to get out of her chair . today vitals stable except high BP PE positive for left arm and forearm swelling anf tenderness , warm and blue di scolored . otherwise nuerovasculary intact in bilateral upper extremity with low suspecion for compartment syndrom due to intact sensation and pulse X ray of left arm : oblique distal humeral diaphyseal fracture. X ray of left forearm : Generalized soft tissue edema about the forearm. CT of left arm : Acute obliquely oriented midshaft humeral fracture with large interposed hematoma and some muscle expansion likely due to interstitial muscle hemorrhage. orthopedic is consulted , with paln to mobilize , continue analgesia , elevation and surgical fixation per Dr Lindsey ECHO is pending for per surgery evaluation (2) Status post reverse total shoulder replacement Current Visit: No Status: Acute Assessment and Plan: Patient is post total shoulder replacement that had rotated out 2V XR of the left humerus shows total left shoulder arthroplasty. (3) Morbid obesity with BMI of 40.0-44.9, adult Current Visit: No Status: Chronic - Time Spent with Patient Total time spent is greater than 50% in coordination of care (as documented) at patient's floor/unit and/or counseling patient: Internal Medicine: Result - Labs CBC & Chem 7: 04/18/19 01:31 04/18/19 01:31 Labs: Short CBC 04/17/19 04/18/19 Range/Units 20:42 01:31 WBC 7.5 8.3 (4.3-11.1) K/mcL Hgb 10.6 L 10.7 L (11.5-15.4) g/dL Hct 33.6 L 34.1 L (35.3-44.9) % Plt Count 259 267 (140-400) K/mcL Neutrophils # 5.9 (1.6-8.9) K/mcL BMP 04/17/19 04/18/19 20:42 01:31 Sodium 136 138 Potassium 4.5 4.5 Chloride 101 99 Carbon Dioxide 29 30 H BUN 13 13 Creatinine 0.35 L 0.44 L Glucose 111 H 122 H Calcium 9.1 9.0 Liver Function 04/17/19 Range/Units 20:42 Total Bilirubin 1.0 (0.3-1.0) mg/dL AST 15 (13-39) Units/L ALT 17 (7-52) Units/L Alkaline Phosphatase 94 (34-104) Units/L Albumin 3.0 L (3.5-5.7) g/dL Urine 04/18/19 Range/Units 01:15 Urine Color Dark Yellow (Yellow) Urine Clarity Clear (Clear) Urine pH 5.5 (5.0-8.0) pH Units Ur Specific Cash 1.027 H (1.010-1.025) Urine Protein Trace (Neg-Trace) mg/dL Urine Glucose (UA) Normal (Normal) mg/dL - ABG Interpretation ABG results: PT/INR, D-dimer PT 13.8 Seconds (9.4-12.1) H 04/17/19 20:42 - Impressions Impressions Chest X-Ray 04/17/19 20:13 IMPRESSION: 1. Bibasilar atelectasis. 2. Cardiomegaly. 3. Stable displacement/subluxation of the left shoulder arthroplasty. D/ / 04/17/2019 21:34:48 Hilaria Montes MD / [facility] Interpreting Provider: Hilaria Montes MD Upper Extremity CT 04/18/19 05:05 IMPRESSION: Acute obliquely oriented midshaft humeral fracture with large interposed hematoma and some muscle expansion likely due to interstitial muscle hemorrhage. Compartment syndrome is not excluded on the basis of this exam; consider correlation with compartment pressures. D/ / 04/18/2019 08:56:36 Obdulio Mcneill / [facility] Interpreting Provider: Obdulio Mcneill Consult Discharge Plan - Plan Referrals: NONE,PCP [Primary Care Provider] - <Baltazar Singh - Last Filed: 04/18/19 19:15> Hospitalist Progress Note - Encounter Date of Encounter: 04/18/19 - Exam Vitals: Temp Pulse Resp BP Pulse Ox 100.5 F H 104 20 143/78 93 04/18/19 18:40 04/18/19 18:40 04/18/19 18:40 04/18/19 18:40 04/18/19 18:40 - Assessment and Plan (1) Displaced fracture of proximal end of left humerus Current Visit: Yes Status: Acute (2) Diabetes mellitus type 2 in obese Current Visit: Yes Status: Chronic (3) Generalized weakness Current Visit: Yes Status: Acute (4) Failure to thrive in adult Current Visit: Yes Status: Acute (5) Anemia Current Visit: Yes Status: Acute (6) DVT prophylaxis Current Visit: Yes Status: Acute - Time Spent with Patient Total time spent is greater than 50% in coordination of care (as documented) at patient's floor/unit and/or counseling patient: Internal Medicine: Result - Labs CBC & Chem 7: 04/18/19 01:31 04/18/19 01:31 Labs: Short CBC 04/17/19 04/18/19 Range/Units 20:42 01:31 WBC 7.5 8.3 (4.3-11.1) K/mcL Hgb 10.6 L 10.7 L (11.5-15.4) g/dL Hct 33.6 L 34.1 L (35.3-44.9) % Plt Count 259 267 (140-400) K/mcL Neutrophils # 5.9 (1.6-8.9) K/mcL BMP 04/17/19 04/18/19 20:42 01:31 Sodium 136 138 Potassium 4.5 4.5 Chloride 101 99 Carbon Dioxide 29 30 H BUN 13 13 Creatinine 0.35 L 0.44 L Glucose 111 H 122 H Calcium 9.1 9.0 Liver Function 04/17/19 Range/Units 20:42 Total Bilirubin 1.0 (0.3-1.0) mg/dL AST 15 (13-39) Units/L ALT 17 (7-52) Units/L Alkaline Phosphatase 94 (34-104) Units/L Albumin 3.0 L (3.5-5.7) g/dL Urine 04/18/19 Range/Units 01:15 Urine Color Dark Yellow (Yellow) Urine Clarity Clear (Clear) Urine pH 5.5 (5.0-8.0) pH Units Ur Specific Cash 1.027 H (1.010-1.025) Urine Protein Trace (Neg-Trace) mg/dL Urine Glucose (UA) Normal (Normal) mg/dL - ABG Interpretation ABG results: PT/INR, D-dimer PT 13.8 Seconds (9.4-12.1) H 04/17/19 20:42 - Impressions Impressions Chest X-Ray 04/17/19 20:13 IMPRESSION: 1. Bibasilar atelectasis. 2. Cardiomegaly. 3. Stable displacement/subluxation of the left shoulder arthroplasty. D/ / 04/17/2019 21:34:48 Hilaria Montes MD / [facility] Interpreting Provider: Hilaria Montes MD Upper Extremity CT 04/18/19 05:05 IMPRESSION: Acute obliquely oriented midshaft humeral fracture with large interposed hematoma and some muscle expansion likely due to interstitial muscle hemorrhage. Compartment syndrome is not excluded on the basis of this exam; consider correlation with compartment pressures. D/ / 04/18/2019 08:56:36 Obdulio Mcneill / [facility]aitlyn Interpreting Provider: Obdulio Mcneill Echocardiogram Limited Views 04/18/19 20:10 Impressions: LVEF 65%. Normal LV chamber size, wall thickness and function. Findings: Study Quality * Technically adequate exam. ECG Findings * Normal sinus rhythm. Left Ventricle * LVEF 65%. * Normal LV chamber size, wall thickness and function. Right Ventricle * Normal right ventricular structure and function. Pericardium * The pericardium appears normal. - Attending Attestation I saw evaluated and examined this patient and reviewed objective data including labs and my medical decision-making was reviewed with the Resident Physician. I agree with the documented findings, disposition and treatment plan as described except to any changes set forth below. We independently had [id number] contact with the patient. <Jacek Anderson I - Last Filed: 04/18/19 17:48> (2) Status post reverse total shoulder replacement Qualifiers: Laterality: left Qualified Code(s): Z96.612 - Presence of left artificial dariusz ulder joint <Ghanem,Rishi Rheem - Last Filed: 04/18/19 19:15> (5) Anemia Qualifiers: Anemia type: unspecified type Qualified Code(s): D64.9 - Anemia, unspecified
[2019-04-18] MEDS ORDERED: hydrALAZINE 10 MG TABLET PO PRN (10:11)
[2019-04-18] MEDS ORDERED: hydrALAZINE 10 MG TABLET PO ONE (10:11)
[2019-04-18] MEDS ORDERED: *HR* Promethazine 25 MG/ML VIAL IVP ONE (20:56)
[2019-04-18] MEDS: levoFLOXacin 750 MG/150 ML 750 MG/150 ML BAG IVPB SCH (21:06)
[2019-04-19 04:28] LABS: Basophils % 0.1 %; Eosinophils % 0.2 %; Hematocrit 33.2 % (35.3-44.9); Hemoglobin 10.4 g/dL (11.5-15.4); Immature Granulocytes % 0.7 % (0-4); Lymphocytes # 0.6 K/mcL (0.6-4.6); Lymphocytes % 3.4 %; Mean Corpuscular HGB Conc 31.3 g/dL (31.6-35.5); Mean Corpuscular Hemoglobin 27.9 pg (28.0-33.3); Monocytes # 1.1 K/mcL (0.0-1.3); Neutrophils # 16.3 K/mcL (1.6-8.9); Platelet Count 254 K/mcL (140-400); Red Blood Count 3.73 M/mcL (3.82-4.97); Red Cell Distribution Width 14.9 % (11.5-14.5); Segmented Neutrophils % 89.6 %
[2019-04-19 04:37] LABS: White Blood Count 18.2 K/mcL (4.3-11.1)
[2019-04-19 04:50] LABS: BUN/Creatinine Ratio 44 (6-26); Blood Urea Nitrogen 17 mg/dL (8-23); Calcium 9.2 mg/dL (8.6-10.3); Carbon Dioxide 29 mEq/L (23-29); Chloride 100 mEq/L (98-107); Glucose 99 mg/dL (70-105); Osmolality,Calculated 286 (280-300); Potassium 4.3 mEq/L (3.5-5.1); Sodium 137 mEq/L (136-145); eGFR For African Americans > 60 (> 60); eGFR For Non-African Americans > 60 (> 60)
--- NOTE | 2019-04-19 06:50 | Orthopedics Progress Note ---
Date of Encounter: 04/19/19 Time of Encounter: 06:49 Subjective Principal diagnosis: Distal humerus fracture, status post total shoulder Interval history: Patient seen this morning, admitted to [facility] with UTI, patient diagnosed with a periprosthetic humerus fracture after being admitted for a few days, patient seen this morning, left upper extremity positive swelling, neurovascular intact. No concern for compartment syndrome. Patient has loosening of humeral component as well as fracture of distal humerus. Recommendations for revision of humeral component and open reduction internal fixation of humerus fracture. Patient will be scheduled for surgery tomorrow. We reviewed the risks and benefits as well as recovery. All questions were answered. The patient agreed to this treatment plan and acknowledged an understanding of the treatment plan as described. Objective Vital signs: Vital Signs Temp Pulse Resp BP Pulse Ox 04/19/19 03:30 98.3 F 90 17 118/65 98 04/18/19 22:50 99.6 F 93 17 103/69 97 04/18/19 22:43 99.1 F 04/18/19 20:56 103 F H 04/18/19 18:40 100.5 F H 104 20 143/78 93 04/18/19 15:24 99.0 F 102 14 120/74 92 04/18/19 10:31 98.0 F 90 16 130/76 96 04/18/19 06:52 97.7 F 68 17 161/82 98 Intake and Output 04/18/19 04/18/19 04/19/19 15:59 23:59 07:59 Intake Total 40 / 540 500 / 540 Output Total 250 / 800 150 / 800 225 / 225 Balance -210 / -260 350 / -260 -225 / -225 Intake: IV Fluids 150 / 150 Levaquin Premix 750mg/150 mL 150 / 150 750 mg In 150 ml @ 100 mls/hr IVPB DAILY DANIELLA Rx#:[id number] Oral 40 / 390 350 / 390 Output: Catheter 250 / 800 150 / 800 225 / 225 Other: Meal Lunch Dinner Percent of Meal Consumed 5% 0% # Bowel Movements 0 0 Weight 96.3 kg Blood Glucose* 104 134 Patient Weight 04/19/19 23:59 Weight 96.3 kg - Labs CBC & BMP: 04/19/19 04:14 04/19/19 04:14 Labs: Abnormal lab results WBC 18.2 K/mcL (4.3-11.1) H D 04/19/19 04:14 RBC 3.73 M/mcL (3.82-4.97) L 04/19/19 04:14 Hgb 10.4 g/dL (11.5-15.4) L 04/19/19 04:14 Hct 33.2 % (35.3-44.9) L 04/19/19 04:14 MCH 27.9 pg (28.0-33.3) L 04/19/19 04:14 MCHC 31.3 g/dL (31.6-35.5) L 04/19/19 04:14 RDW 14.9 % (11.5-14.5) H 04/19/19 04:14 Neutrophils # 16.3 K/mcL (1.6-8.9) H 04/19/19 04:14 PT 13.8 Seconds (9.4-12.1) H 04/17/19 20:42 Carbon Dioxide 30 mEq/L (23-29) H 04/18/19 01:31 Creatinine 0.39 mg/dL (0.60-1.20) L 04/19/19 04:14 BUN/Creatinine Ratio 44 (6-26) H 04/19/19 04:14 Glucose 122 mg/dL (70-105) H 04/18/19 01:31 POC Glucose 120 mg/dL (70-99) H 04/18/19 16:55 Hemoglobin A1c 5.7 % (-5.6) H 04/18/19 01:31 Serum Total Protein 5.8 g/dL (6.4-8.9) L 04/17/19 20:42 Albumin 3.0 g/dL (3.5-5.7) L 04/17/19 20:42 LDL Cholesterol, Calc 106 mg/dL (0-99) H 04/18/19 01:31 HDL Cholesterol 27 mg/dL (40-59) L 04/18/19 01:31 Cholesterol/HDL Ratio 6.0 (0-4.9) H 04/18/19 01:31 Ur Specific [place] 1.027 (1.010-1.025) H 04/18/19 01:15 Urine Ketones 15 mg/dL (Negative) H 04/18/19 01:15 Urine Blood Small (Negative) H 04/18/19 01:15 Urine Bilirubin Small (Negative) H 04/18/19 01:15 Ur Leukocyte Esterase Trace (Negative) H 04/18/19 01:15 Urine Microscopic WBC 3-5 per hpf (0-3) H 04/18/19 01:15 Ur Squamous Epith Cells Many per lpf (None-Few) H 04/18/19 01:15 Ur Culture Indicated? YES (NO) A 04/18/19 01:15 Consult Discharge Plan - Plan Referrals: NONE,PCP [Primary Care Provider] -
--- NOTE | 2019-04-19 07:33 | Internal Med Progress Note ---
<Jacek Anderson I - Last Filed: 04/19/19 18:30> Hospitalist Progress Note - Encounter Date of Encounter: 04/19/19 Time of Encounter: 08:30 - Subjective Interval History: Patient was seen and examined today , still dyspnic and complain of left arm pain and swelling , supposed to have surgery to fix her # tomorrow . she has dry cough with no sputum production . denies fever , no chest pain , no N/V/D/ or constipation . - Exam Vitals: Temp Pulse Resp BP Pulse Ox 98.5 F 94 18 121/68 98 04/19/19 07:00 04/19/19 07:00 04/19/19 07:00 04/19/19 07:00 04/19/19 07:00 Exam: General: no acute distress , A&AX3 HEENT: Atraumatic, Normocephaly, sclera unicteric Neck: supple , Full ROM , trachea midline Cardiac: RRR , S1+. S2+ Lungs: Normal Breath Sounds Bilaterally, No Wheeze, Rales, Rhonchi Abdomen: Soft, Non-Tender ,no organomegaly , +bowel sounds Extremities: swelling and echymosis of left upper extrimity with tenderness to palpatiion , intact sensation . Normal Pulses Psychiatric : normal affect, normal mood Nuero : alert, normal gait, oriented X3 - Assessment and Plan (1) Displaced fracture of proximal end of left humerus Current Visit: Yes Status: Acute Assessment and Plan: -Patient is post total shoulder replacement that had rotated out presented with left upper extremity pain and swelling -nuerovasculary intact with low suspecion for compartment syndrom due to intact sensation and pulse -X ray of left arm : oblique distal humeral diaphyseal fracture. -X ray of left forearm : Generalized soft tissue edema about the forearm. -CT of left arm : Acute obliquely oriented midshaft humeral fracture with large interposed hematoma and some muscle expansion likely due to interstitial muscle hemorrhage. - Ortho recommend revision of humeral component and open reduction internal fixation of humerus fracture. - Patient will be scheduled for surgery tomorrow. -ECHO is pending for per surgery evaluation (2) Sepsis Current Visit: Yes Status: Acute Assessment and Plan: Patient met sepsis criteria yesterday with T 103 , HR 104, RR20 ,WBC 18.2 could be due to peum[place] or UTI or fracture side she is clinically stable , vitals noted for tachycardia and she is on 2 liter oxygen lactic acid 0.8 04/18/2019 blood cultures are pending urine culture is negative nasal swab for MRSA CXR There are small bilateral pleural effusions seen on the lateral view, with bibasilar airspace disease which could represent atelectasis or pneumonia, left greater than right. on levoquin , today day 2 (3) Status post reverse total shoulder replacement Current Visit: No Status: Acute Assessment and Plan: Patient is post total shoulder replacement that had rotated out 2V XR of the left humerus shows total left shoulder arthroplasty. (4) Morbid obesity with BMI of 40.0-44.9, adult Current Visit: No Status: Chronic - Time Spent with Patient Total time spent is greater than 50% in coordination of care (as documented) at patient's floor/unit and/or counseling patient: Internal Medicine: Result - Labs CBC & Chem 7: 04/19/19 04:14 04/19/19 04:14 Labs: Short CBC 04/19/19 Range/Units 04:14 WBC 18.2 H D (4.3-11.1) K/mcL Hgb 10.4 L (11.5-15.4) g/dL Hct 33.2 L (35.3-44.9) % Plt Count 254 (140-400) K/mcL Neutrophils # 16.3 H (1.6-8.9) K/mcL BMP 04/19/19 04:14 Sodium 137 Potassium 4.3 Chloride 100 Carbon Dioxide 29 BUN 17 Creatinine 0.39 L Glucose 99 Calcium 9.2 - ABG Interpretation ABG results: PT/INR, D-dimer PT 13.8 Seconds (9.4-12.1) H 04/17/19 20:42 - Impressions Impressions Upper Extremity CT 04/18/19 05:05 IMPRESSION: Acute obliquely oriented midshaft humeral fracture with large interposed hematoma and some muscle expansion likely due to interstitial muscle hemorrhage. Compartment syndrome is not excluded on the basis of this exam; consider correlation with compartment pressures. D/ / 04/18/2019 08:56:36 Obdulio Mcneill / caitlyn Interpreting Provider: Obdulio Mcneill Echocardiogram Limited Views 04/18/19 20:10 Impressions: LVEF 65%. Normal LV chamber size, wall thickness and function. Findings: Study Quality * Technically adequate exam. ECG Findings * Normal sinus rhythm. Left Ventricle * LVEF 65%. * Normal LV chamber size, wall thickness and function. Right Ventricle * Normal right ventricular structure and function. Pericardium * The pericardium appears normal. Consult Discharge Plan - Plan Referrals: NONE,PCP [Primary Care Provider] - <Baltazar Singh - Last Filed: 04/19/19 22:08> Hospitalist Progress Note - Encounter Date of Encounter: 04/19/19 - Exam Vitals: Temp Pulse Resp BP Pulse Ox 98.5 F 94 18 121/68 98 04/19/19 07:00 04/19/19 07:00 04/19/19 07:00 04/19/19 07:00 04/19/19 07:00 - Assessment and Plan (1) Displaced fracture of proximal end of left humerus Current Visit: Yes Status: Acute (2) Diabetes mellitus type 2 in obese Current Visit: Yes Status: Chronic (3) Generalized weakness Current Visit: Yes Status: Acute (4) Failure to thrive in adult Current Visit: Yes Status: Acute (5) Anemia Current Visit: Yes Status: Acute (6) DVT prophylaxis Current Visit: Yes Status: Acute - Time Spent with Patient Total time spent is greater than 50% in coordination of care (as documented) at patient's floor/unit and/or counseling patient: Internal Medicine: Result - Labs CBC & Chem 7: 04/19/19 04:14 04/19/19 04:14 Labs: Short CBC 04/19/19 Range/Units 04:14 WBC 18.2 H D (4.3-11.1) K/mcL Hgb 10.4 L (11.5-15.4) g/dL Hct 33.2 L (35.3-44.9) % Plt Count 254 (140-400) K/mcL Neutrophils # 16.3 H (1.6-8.9) K/mcL BMP 04/19/19 04:14 Sodium 137 Potassium 4.3 Chloride 100 Carbon Dioxide 29 BUN 17 Creatinine 0.39 L Glucose 99 Calcium 9.2 - ABG Interpretation ABG results: PT/INR, D-dimer PT 13.8 Seconds (9.4-12.1) H 04/17/19 20:42 - Impressions Impressions Upper Extremity CT 04/18/19 05:05 IMPRESSION: Acute obliquely oriented midshaft humeral fracture with large interposed hematoma and some muscle expansion likely due to interstitial muscle hemorrhage. Compartment syndrome is not excluded on the basis of this exam; consider correlation with compartment pressures. D/ / 04/18/2019 08:56:36 Obduloi Mcneill / caitlyn Interpreting Provider: Obdulio Mcneill Chest X-Ray 04/19/19 08:49 IMPRESSION: Small bilateral pleural effusions. Slightly increasing left basilar airspace opacity either atelectasis or pneumonia. Recommended two-view chest x-ray if the patient is able. D/ / Milly Knutson MD / Milly Knutson MD Interpreting Provider: Milly Knutson MD Chest X-Ray 04/19/19 11:41 IMPRESSION: There are small bilateral pleural effusions seen on the lateral view, with bibasilar airspace disease which could represent atelectasis or pneumonia, left greater than right. Underlying COPD. Otherwise similar appearing chest. D/ / Nate Mario MD / Nate Mario MD Interpreting Provider: Nate Mario MD - Attending Attestation I saw evaluated and examined this patient and reviewed objective data including labs and my medical decision-making was reviewed with the Resident Physician. I agree with the documented findings, disposition and treatment plan as described except to any changes set forth below. We independently had [id number] contact with the patient. Patient has complaints of left arm pain. Swelling is about the same. She had fevers and tachycardia overnight. Complains of cough with difficulty coughing anything up. Physical exam is limited due to patient positioning from arm pain, but she appears in generalized discomfort, non-toxic appearing. HR on exam currently RRR, lungs decreased at bases though exam limited, abdomen soft, NT/ND. VS: reviewed, currently VS afebrile, HR in normal limits. Labs: reviewed leukocytosis significantly elevated from yesterday WBC. CXR obtained showing likely pneumonia. Continue current pain management and anticipate surgery per Ortho tomorrow. Sepsis due to hospital acquired pneumonia or UTI: follow-up blood cultures, monitor hemodynamics. Start Levaquin, obtain MRSA sc reen. <Jacek Anderson I - Last Filed: 04/19/19 18:30> (3) Status post reverse total shoulder replacement Qualifiers: Laterality: left Qualified Code(s): Z96.612 - Presence of left artificial shoulder joint <Baltazar Singh - Last Filed: 04/19/19 22:08> (5) Anemia Qualifiers: Anemia type: unspecified type Qualified Code(s): D64.9 - Anemia, unspecified
[2019-04-19] MEDS: Insulin LISPRO 300 UNITS/3 ML VIAL SQ SCH ×5 (07:53→21:44)
[2019-04-19] MEDS ORDERED: cefTRIAXone 1,000 MG in Water for inj. (sterile) 10 ML IVP SCH (09:00)
[2019-04-19] MEDS: levoFLOXacin 750 MG/150 ML 750 MG/150 ML BAG IVPB SCH (09:25)
[2019-04-19] MEDS ORDERED: Ondansetron 4 MG/2 ML VIAL IVP PRN (09:26)
[2019-04-19] MEDS: *HR* OxyCODONE Immed Rel 5 MG TABLET PO PRN (12:01)
--- NOTE | 2019-04-19 19:15 | Anesthesia Evaluation PreOp ---
Date of Encounter: 04/20/19 Time of Encounter: 06:50 - Past History Planned Operation: ORIF Left Humeral Shaft Cardiac History: Denies any Significant Hx Pulmonary History: Denies Any Significant HX GYNECOLOGIST History: Denies Any Significant HX Other Medical History: Diabetes Type II (diet controlled), GERD (hiatal hernia), Other (H/O cervical CA) Anesthesia History: No Prior Anesthetic Complications, Past Anesthesia (hysterectomy) Alcohol Use: none Drug use: none Medications and Allergies Cholecalciferol (D-3) [Vitamin D] 2,000 unit PO DAILY tablet 04/17/19 [Rx] Enoxaparin [Lovenox] 40 mg SQ DAILY 30 Days syr 04/17/19 [Rx] Ondansetron [Zofran] 4 mg IVP Q4H PRN vial 04/17/19 [Rx] Potassium Chloride 10 meq PO BIDWM tab.er.prt 04/17/19 [Rx] Allergy/AdvReac Type Severity Reaction Status Date / Time Amoxicillin Allergy Hives Verified 04/12/19 08:05 Penicillins Allergy Hives Verified 04/12/19 08:05 - Meds/Allergy Pre-op Review Medications Reviewed: Yes Allergies Reviewed: Yes Beta Blockers on Current Med List: No Anesthesia Results - Labs 04/20/19 05:12 04/20/19 05:12 - Imaging EKG: report reviewed (04/13/2019 Sinus tachycardia Right bundle branch block) Additional studies: 04/18/2019 Limited Echo Impressions: LVEF 65%. Normal LV chamber size, wall thickness and function. 01/11/2019 Stress Impression: Perfusion imaging was negative for ischemia or infarct. Pharmacologic stress ECG is negative for ischemia at level of heart rate achieved. Gated EF > 70%. 05/28/2018 Echo Impressions: LVEF 60%. Mild left ventricular diastolic dysfunction. Normal right ventricular structure and function. Mild-moderate mitral regurgitation. Mild aortic regurgitation. Mild-moderate tricuspid regurgitation. Anesthesia Exam Vital Signs/O2 Sat/Glucose, Most Recent Temp Pulse Resp BP Pulse Ox 98.5 F 94 18 121/68 98 04/19/19 07:00 04/19/19 07:00 04/19/19 07:00 04/19/19 07:00 04/19/19 07:00 Blood Glucose* 93 Height: 5'5''/1.65m Weight: 212 lbs/96.3 kg NPO (# of Hours): 8 Pain Scale: 5 Pain Scale Used: Numeric (1 - 10) - HEENT Pupil (Motor): EOMI Mallampati: III Teeth: Edentulous Oral Opening: Greater than 3 - GYNECOLOGIST LOC: Oriented GYNECOLOGIST Motor: Normal RUE, Normal RLE, Normal LLE, Normal Face, Deficit LUE GYNECOLOGIST Sensory: Normal: RUE, LUE, RLE, LLE, Face - Cardiac Rhythm: Regular Murmur: None - Pulmonary Breath Sounds: bilateral Clear Respiratory Effort: Symmetrical Anesthesia Assess/Plan ASA Score: 2 Level of consciousness: Cooperative, Oriented, Tranquil Anesthetic Plan: General, Regional Nerve Block Regional Nerve Block Plan: Supraclavicular Monitoring Plan: Standard Monitors Recovery Plan: PACU
[2019-04-20 06:08] LABS: Hematocrit 32.6 % (35.3-44.9); Hemoglobin 10.4 g/dL (11.5-15.4); Mean Corpuscular HGB Conc 31.9 g/dL (31.6-35.5); Mean Corpuscular Hemoglobin 27.5 pg (28.0-33.3); Mean Corpuscular Volume 86.2 fL (83.0-100.0); Mean Platelet Volume 10.5 fL (9.4-12.4); Platelet Count 286 K/mcL (140-400); Red Blood Count 3.78 M/mcL (3.82-4.97); Red Cell Distribution Width 15.3 % (11.5-14.5); White Blood Count 19.1 K/mcL (4.3-11.1)
[2019-04-20 06:27] LABS: BUN/Creatinine Ratio 38 (6-26); Blood Urea Nitrogen 16 mg/dL (8-23); Calcium 9.1 mg/dL (8.6-10.3); Carbon Dioxide 31 mEq/L (23-29); Chloride 97 mEq/L (98-107); Glucose 114 mg/dL (70-105); Osmolality,Calculated 286 (280-300); Sodium 137 mEq/L (136-145); eGFR For African Americans > 60 (> 60); eGFR For Non-African Americans > 60 (> 60)
--- NOTE | 2019-04-20 07:40 | Orthopedics Progress Note ---
Date of Encounter: 04/20/19 Time of Encounter: 07:39 Subjective Principal diagnosis: Distal humerus fracture, status post total shoulder Interval history: Patient seen this morning, surgical plan reviewed. Patient with elevating white count, source unknown. Plan for revision left shoulder surgery with open reduction internal fixation of humeral fracture. We reviewed the risks and benefits as well as recovery. All questions were answered. The patient agreed to this treatment plan and acknowledged an understanding of the treatment plan as described. Objective Vital signs: Vital Signs Temp Pulse Resp BP Pulse Ox 04/20/19 07:21 98.2 F 95 16 138/80 94 04/20/19 04:41 98.6 F 97 15 134/79 91 04/19/19 22:34 98.3 F 98 15 117/78 93 04/19/19 19:19 99.2 F 97 16 127/81 95 Intake and Output 04/19/19 04/19/19 04/20/19 15:59 23:59 07:59 Intake Total 300 / 300 Output Total 250 / 850 375 / 850 300 / 300 Balance 50 / -550 -375 / -550 -300 / -300 Intake: Oral 300 / 300 Output: Urine 250 / 250 Catheter 375 / 600 300 / 300 Other: Meal Lunch Percent of Meal Consumed 10% Stool Size Smear Stool Color Brown Weight 96.4 kg Blood Glucose* 134 111 Patient Weight 04/20/19 23:59 Weight 96.4 kg - Labs CBC & BMP: 04/20/19 05:12 04/20/19 05:12 Labs: Abnormal lab results WBC 19.1 K/mcL (4.3-11.1) H 04/20/19 05:12 RBC 3.78 M/mcL (3.82-4.97) L 04/20/19 05:12 Hgb 10.4 g/dL (11.5-15.4) L 04/20/19 05:12 Hct 32.6 % (35.3-44.9) L 04/20/19 05:12 MCH 27.5 pg (28.0-33.3) L 04/20/19 05:12 MCHC 31.3 g/dL (31.6-35.5) L 04/19/19 04:14 RDW 15.3 % (11.5-14.5) H 04/20/19 05:12 Neutrophils # 16.3 K/mcL (1.6-8.9) H 04/19/19 04:14 PT 13.8 Seconds (9.4-12.1) H 04/17/19 20:42 Chloride 97 mEq/L (98-107) L 04/20/19 05:12 Carbon Dioxide 31 mEq/L (23-29) H 04/20/19 05:12 Creatinine 0.42 mg/dL (0.60-1.20) L 04/20/19 05:12 BUN/Creatinine Ratio 38 (6-26) H 04/20/19 05:12 Glucose 114 mg/dL (70-105) H 04/20/19 05:12 POC Glucose 111 mg/dL (70-99) H 04/19/19 20:06 Hemoglobin A1c 5.7 % (-5.6) H 04/18/19 01:31 Serum Total Protein 5.8 g/dL (6.4-8.9) L 04/17/19 20:42 Albumin 3.0 g/dL (3.5-5.7) L 04/17/19 20:42 LDL Cholesterol, Calc 106 mg/dL (0-99) H 04/18/19 01:31 HDL Cholesterol 27 mg/dL (40-59) L 04/18/19 01:31 Cholesterol/HDL Ratio 6.0 (0-4.9) H 04/18/19 01:31 Ur Specific [place] 1.027 (1.010-1.025) H 04/18/19 01:15 Urine Ketones 15 mg/dL (Negative) H 04/18/19 01:15 Urine Blood Small (Negative) H 04/18/19 01:15 Urine Bilirubin Small (Negative) H 04/18/19 01:15 Ur Leukocyte Esterase Trace (Negative) H 04/18/19 01:15 Urine Microscopic WBC 3-5 per hpf (0-3) H 04/18/19 01:15 Ur Squamous Epith Cells Many per lpf (None-Few) H 04/18/19 01:15 Ur Culture Indicated? YES (NO) A 04/18/19 01:15 Nasal Screen MRSA (PCR) DETECTED (Not Detect) A 04/19/19 13:13 Consult Discharge Plan - Plan Referrals: NONE,PCP [Primary Care Provider] -
[2019-04-20] MEDS: Insulin LISPRO 300 UNITS/3 ML VIAL SQ SCH ×4 (08:45→20:55)
[2019-04-20] MEDS: levoFLOXacin 750 MG/150 ML 750 MG/150 ML BAG IVPB SCH (09:45)
[2019-04-20] MEDS: *HR* OxyCODONE Immed Rel 5 MG TABLET PO PRN (09:46)
[2019-04-20] MEDS ORDERED: Ropivacaine/PF 0.5% 30 ML VIAL ONE (11:53)
[2019-04-20] MEDS ORDERED: ROPIVACAINE/PF/NS 0.25% 1 EACH SYRINGE INTRAART ONE (11:53)
[2019-04-20] MEDS ORDERED: Clindamycin 900 MG/50 ML 900 MG/50 ML IV.SOLN IVPB ONE ×3 (12:04→16:11)
[2019-04-20] MEDS ORDERED: Ethanol\\Acetic Acid\\Na Ace\\Ben 1,000 ML IRRIG.SOLN IR ONE (12:12)
[2019-04-20] MEDS ORDERED: Lidocaine -MPF 2% 2 ML VIAL ONE (12:15)
[2019-04-20] MEDS ORDERED: Ondansetron 4 MG/2 ML VIAL ONE (12:15)
[2019-04-20] MEDS ORDERED: *HR* Midazolam HCl 2 MG/2 ML VIAL ONE (12:15)
[2019-04-20] MEDS ORDERED: *HR* Succinylcholine 200 MG/10 ML VIAL IVP ONE (12:15)
[2019-04-20] MEDS ORDERED: *HR* Etomidate 40 MG/20 ML VIAL IVP ONE (12:15)
[2019-04-20] MEDS ORDERED: *HR* Propofol 200 MG/20 ML VIAL IVP ONE (12:15)
[2019-04-20] MEDS ORDERED: *HR* FentaNYL (PF) 100 MCG/2 ML VIAL ONE (12:15)
[2019-04-20] MEDS ORDERED: Dexamethasone 4 MG/ML VIAL ONE (12:15)
[2019-04-20] MEDS ORDERED: EPHEDrine 50 MG/ML VIAL ONE (12:16)
--- NOTE | 2019-04-20 12:19 | Anesthesia Procedures ---
Date of Encounter: 04/20/19 Time of Encounter: 12:02 Procedures: Anesthesia - Nerve Block Procedure Date: 04/20/19 Time: 12:02 Surgical Procedure: left ORIF hum Checklist: Correct Patient Identifier, Correct procedure, History checked Correct side: Left Monitor Applied: BP, Pulse Oximetry Supplemental Oxygen via Nasal Cannula (L/min): 2 Sedation: Versed (mg): 0 (0.5mg versed given ) Sedation: Fentanyl (mcg): 0 Indication: Post Op Analgesia Pre-op Neuro Deficits: No Block Type: Supraclavicular Catheter placed: No Sterile Technique: Yes Ultrasound used: Yes Anatomy identified: Yes Visual spread of Local: Yes Neuro Stimulation: No Blood on Needle Aspiration: No Smooth Injection of Local: Yes Pain with Injection of Local: No Prep: Chlorhexadine Needle: 22 x 50 mm Stimuplex Local: Ropivacaine (30ml 0.5% rop, 0.25% rop 20ml for SCP (5ml), and ICB (15ml)) Volume (cc): 50 Number of Attempts: 1 Complications: None/effective block Vitals: vss though out procedure. block per request of surgeon. all completed via Paulino Granado CRNA.
[2019-04-20] MEDS ORDERED: *HR* PHENYLEPHRINE 1,000 MCG/10 ML SYRINGE IVP ONE ×4 (12:21→14:06)
[2019-04-20] MEDS ORDERED: Lidocaine HCL 4 ML Topical Solution (Laryng-O-Jet Kit Sterile Pak) TP ONE (12:22)
[2019-04-20] MEDS ORDERED: Lacri-Lube 3.5 GM TUBE ONE (13:13)
[2019-04-20] MEDS ORDERED: Acetaminophen IV 1,000 MG/100 ML INFUS..BTL IVPB ONE ×3 (13:27→16:11)
--- NOTE | 2019-04-20 13:37 | Internal Med Progress Note ---
<Jacek Anderson I - Last Filed: 04/20/19 15:14> Hospitalist Progress Note - Encounter Date of Encounter: 04/20/19 Time of Encounter: 08:30 - Subjective Interval History: Today Patient was seen and examined . still complaining of left arm pain and swelling . no fever or tachycardia overnight . Complains of cough with difficulty coughing anything up. . she will undergo surgery today . No chest pain , no N/V/D/ or constipation . - Exam Vitals: Temp Pulse Resp BP Pulse Ox 98.2 F 99 16 159/69 93 04/20/19 07:21 04/20/19 12:27 04/20/19 12:27 04/20/19 12:27 04/20/19 12:27 Exam: General: no acute distress , A&AX3 HEENT: Atraumatic, Normocephaly, sclera unicteric Neck: supple , Full ROM , trachea midline Cardiac: RRR , S1+. S2+ Lungs: Normal Breath Sounds Bilaterally, No Wheeze, Rales, Rhonchi Abdomen: Soft, Non-Tender ,no organomegaly , +bowel sounds Extremities: swelling and echymosis of left upper extrimity with tenderness to palpatiion , intact sensation . Normal Pulses Psychiatric : normal affect, normal mood Nuero : alert, normal gait, oriented X3 - Assessment and Plan (1) Displaced fracture of proximal end of left humerus Current Visit: Yes Status: Acute Assessment and Plan: -Patient is post total shoulder replacement that had rotated out presented with left upper extremity pain and swelling -cause of fracture is unknown . patient denies fall -X ray of left arm : oblique distal humeral diaphyseal fracture. -X ray of left forearm : Generalized soft tissue edema about the forearm. -CT of left arm : Acute obliquely oriented midshaft humeral fracture with large interposed hematoma and some muscle expansion likely due to interstitial muscle hemorrhage. - echo : LVEF 65%. Normal LV chamber size, wall thickness and function. - surgery today : revision of humeral component and open reduction internal fixation of humerus fracture. - IV acetaminophen post surgery (2) Sepsis Current Visit: Yes Status: Acute Assessment and Plan: Patient met sepsis criteria two days ago with T 103 , HR 104, RR20 ,WBC 18.2 sepsis is due to [place] CXR There are small bilateral pleural effusions seen on the lateral view, with bibasilar airspace disease which could represent atelectasis or pneumonia, left greater than right. she is clinically stable , vitals noted for tachycardia 04/18/2019 blood cultures are pending urine culture is negative nasal swab for MRSA +ve on levoquin , today day 3 , vanco day 1 (3) Tachycardia Current Visit: Yes Status: Acute Assessment and Plan: could be due to pain or sepsis or anemia . her hb is 10.4 , wbc 19 continue monitoring (4) Status post reverse total shoulder replacement Current Visit: No Status: Acute Assessment and Plan: Patient is post total shoulder replacement that had rotated out 2V XR of the left humerus shows total left shoulder arthroplasty. (5) Morbid obesity with BMI of 40.0-44.9, adult Current Visit: No Status: Chronic - Time Spent with Patient Total time spent is greater than 50% in coordination of care (as documented) at patient's floor/unit and/or counseling patient: Internal Medicine: Result - Labs CBC & Chem 7: 04/20/19 05:12 04/20/19 05:12 Labs: Short CBC 04/20/19 Range/Units 05:12 WBC 19.1 H (4.3-11.1) K/mcL Hgb 10.4 L (11.5-15.4) g/dL Hct 32.6 L (35.3-44.9) % Plt Count 286 (140-400) K/mcL BMP 04/20/19 05:12 Sodium 137 Potassium 4.0 Chloride 97 L Carbon Dioxide 31 H BUN 16 Creatinine 0.42 L Glucose 114 H Calcium 9.1 - ABG Interpretation ABG results: PT/INR, D-dimer PT 13.8 Seconds (9.4-12.1) H 04/17/19 20:42 - Impressions Impressions Chest X-Ray 04/19/19 11:41 IMPRESSION: There are small bilateral pleural effusions seen on the lateral view, with bibasilar airspace disease which could represent atelectasis or pneumonia, left greater than right. Underlying COPD. Otherwise similar appearing chest. D/ / Nate Mario MD / Nate Mario MD Interpreting Provider: Nate Mario MD Consult Discharge Plan - Plan Referrals: NONE,PCP [Primary Care Provider] - Prescriptions: Docusate [Colace] 100 mg PO BID 5 Days #10 capsule Ibuprofen [Motrin] 600 mg PO Q6HR PRN 7 Days #28 tab PRN Reason: Pain Acetaminophen [Pain Relief] 500 mg PO Q6H 7 Days #28 tablet OxyCODONE Immed Rel [Roxicodone 5 MG] 5 mg PO Q6HR PRN 5 Days #20 tablet PRN Reason: Severe Pain <Britt Mercedes - Last Filed: 04/20/19 15:40> Hospitalist Progress Note - Encounter Date of Encounter: 04/20/19 Time of Encounter: 09:35 - Exam Vitals: Temp Pulse Resp BP Pulse Ox 98.5 F 110 18 147/72 100 04/20/19 15:29 04/20/19 15:29 04/20/19 15:29 04/20/19 15:29 04/20/19 15:29 - Assessment and Plan (1) Displaced fracture of proximal end of left humerus Current Visit: Yes Status: Acute (2) Diabetes mellitus type 2 in obese Current Visit: Yes Status: Chronic (3) Generalized weakness Current Visit: Yes Status: Inactive (4) Failure to thrive in adult Current Visit: Yes Status: Acute (5) Anemia Current Visit: Yes Status: Acute (6) DVT prophylaxis Current Visit: Yes Status: Acute - Time Spent with Patient Total time spent is greater than 50% in coordination of care (as documented) at patient's floor/unit and/or counseling patient: Internal Medicine: Result - Labs CBC & Chem 7: 04/20/19 05:12 04/20/19 05:12 Labs: Short CBC 04/20/19 Range/Units 05:12 WBC 19.1 H (4.3-11.1) K/mcL Hgb 10.4 L (11.5-15.4) g/dL Hct 32.6 L (35.3-44.9) % Plt Count 286 (140-400) K/mcL BMP 04/20/19 05:12 Sodium 137 Potassium 4.0 Chloride 97 L Carbon Dioxide 31 H BUN 16 Creatinine 0.42 L Glucose 114 H Calcium 9.1 - ABG Interpretation ABG results: PT/INR, D-dimer PT 13.8 Seconds (9.4-12.1) H 04/17/19 20:42 - Attending Attestation I saw evaluated and examined this patient and reviewed objective data including labs and my medical decision-making was reviewed with the Resident Physician, Jacek Anderson. I agree with the documented findings, disposition and treatment plan as described except to any changes set forth below. We independently had fa ce-to-face contact with the patient. Patient lying down in bed. Complains of pain in her left shoulder. Awaiting surgery scheduled for later today. Continue supportive care. Pain control. Diabetic diet after surgery. We will minimize use of narcotics for pain control post surgically given that patient has significant obesity and may have underlying obesity hypoventilation syndrome. Consider use of IV acetaminophen for pain control. Patient currently on Levaquin for possible sepsis and pneumonia. WBC count remains elevated. MRSA screen positive. As such patient has been placed on vancomycin in addition to Levaquin. DVT prophylaxis with Lovenox <Jacek Anderson I - Last Filed: 04/20/19 15:14> (4) Status post reverse total shoulder replacement Qualifiers: Laterality: left Qualified Code(s): Z96.612 - Presence of left artificial shoulder joint <Britt Mercedes - Last Filed: 04/20/19 15:40> (5) Anemia Qualifiers: Anemia type: unspecified type Qualified Code(s): D64.9 - Anemia, unspecified
[2019-04-20] MEDS ORDERED: *HR* Phenylephrine 10 MG/ML VIAL ONE (14:11)
[2019-04-20] MEDS ORDERED: Ipratropium/Albuterol Neb 3 ML ONE (14:59)
--- NOTE | 2019-04-20 15:05 | Orthopedic Operative Note ---
Date of procedure: 04/20/19 Pre-op diagnosis: Aseptic loosening left humeral component left distal humeral shaft fracture Post-op diagnosis: same Procedure: Procedure: Revision humeral component left total shoulder replacement reverse, open reduction internal fixation left humerus. Hardware: Arthrex revision humeral stem size 6, 15 metal spacer 6 constrained Sadie spacer, 6 Arthrex cerclage fiber tapes, Synthes 10 hole narrow 4.5 LCDCP locking plate with one 5.0 locking screw 5, 4.5 cortical screws Estimated blood loss 300 mL Dictation of procedure. Patient brought to the operating placed on the operative table after general anesthesia was administered the patient was placed in modified beachchair position and all pressure points padded appropriately head was stabilized in the physician left upper extremity was prepped and draped in the sterile surgical fashion. Patient received IV antibiotics prior skin incision. I extended deltopectoral to an anterolateral approach is made to the left shoulder and humerus. The incision incorporated the old incision was made to the skin and subcutaneous tissue. Hemostasis was obtained Bovie cautery. Using careful blunt dissection proximally the deltopectoral interval was developed, distally the interval between the brachialis and brachioradialis was developed. The dissection was taken down to the humerus. Fracture site was identified. The proximal humerus was dissected free shoulder was dislocated the humeral stem was removed by hand. A revision humeral stem was impacted in place in 20 degrees retroversion size 6. Fracture site was identified it was reduced and held in place with bone holding forceps. Under direct vision 3 Arthrex cerclage fiber tapes were passed individually and secured giving preliminary fixation. A 10 hole plate was approximately the anterolateral surface it was secured by passing screws around the stem both proximal and distally bicortical fixation was obtained. Fixation was augmented with an additional 3 Arthrex cerclage fiber tapes. Trial reduction revealed the shoulder to be stable with a +15 metal spacer and a 6 constrained Sadie spacer. Trials were removed real components were seated and secured with shoulders reduced. The shoulder was irrigated with an antibacteri al solution was then irrigated with pulse irrigation with a different antibacterial solution was closed in layers beginning with #2 PDS suture 1 PDS suture and 0 PDS suture. Skin was closed with skin ariel. The incision was closed over a TEX drain. The patient was placed in a sterile dressing, posterior splint extubated and transferred to recovery room stable condition. Anesthesia: GETA Surgeon: Abdifatah Lindsey Was there an assistant merchandise manager present: Yes Vascular Manager: Maury Downing Estimated blood loss (cc): 300 Condition: stable Disposition: PACU
[2019-04-20 15:45] LABS: Hematocrit 37.1 % (35.3-44.9); Hemoglobin 11.5 g/dL (11.5-15.4)
--- NOTE | 2019-04-20 16:08 | Anesthesia Evaluation Post Op ---
Date of Encounter: 04/20/19 Time of Encounter: 16:06 - Vital Signs Vital Signs: Vital Signs/O2 Sat, Most Current Temp Pulse Resp BP Pulse Ox 98.1 F 108 20 129/70 97 04/20/19 15:59 04/20/19 15:59 04/20/19 15:59 04/20/19 15:59 04/20/19 15:59 - Lungs Lungs: Clear Ascult./Percussion - Airway Airway: Non-obstructed - Cardiovascular Regular Rate - Mental Status Mental Status: Alert & Oriented, Answers Appropriately - Pain Pain Scale: 0 Pain Scale used: Numeric (1 - 10) - Nausea Vomiting Nausea Vomiting: Not Present - Hydration Hydration: Ice chips, Arana catheter Notes: 04/20/19 16:07 pt denies complaints or concerns - Discharge PostOp Status: Transfer Patient to floor
[2019-04-20] MEDS ORDERED: Sennosides 8.6 MG TABLET PO PRN (16:11)
[2019-04-20] MEDS ORDERED: Ondansetron 4 MG/2 ML VIAL IVP PRN ×2 (16:11)
[2019-04-20] MEDS ORDERED: MOM Conc 10 ML UD.LIQ PO PRN (16:11)
[2019-04-20] MEDS ORDERED: Temazepam 15 MG CAPSULE PO PRN (16:11)
[2019-04-20] MEDS ORDERED: *HR* Dextrose 50 % in Water (Syg) 50 ML SYRINGE IVP PRN (16:11)
[2019-04-20] MEDS ORDERED: Acetaminophen 325 MG TABLET PO PRN (16:11)
[2019-04-20] MEDS ORDERED: traMADol 50 MG TABLET PO PRN (16:11)
[2019-04-20] MEDS ORDERED: D5% in Water 1,000 ML IVC PRN (16:11)
[2019-04-20] MEDS ORDERED: hydrALAZINE 10 MG TABLET PO PRN (16:11)
[2019-04-20] MEDS ORDERED: Naloxone 0.4 MG/ML INJ IVP PRN (16:11)
[2019-04-20] MEDS ORDERED: Dextrose Gel 15 GM/37.5 ML TUBE PO PRN ×2 (16:11)
[2019-04-20] MEDS ORDERED: Ringers Solution, Lactated 1,000 ML IVC SCH (16:11)
[2019-04-20] MEDS ORDERED: *HR* OxyCODONE Immed Rel 5 MG TABLET PO PRN (16:11)
[2019-04-20] MEDS ORDERED: levoFLOXacin 750 MG/150 ML 750 MG/150 ML BAG IVPB SCH (18:00)
[2019-04-21 03:12] LABS: Hematocrit 30.2 % (35.3-44.9); Mean Corpuscular HGB Conc 32.5 g/dL (31.6-35.5); Mean Corpuscular Hemoglobin 28.1 pg (28.0-33.3); Mean Corpuscular Volume 86.5 fL (83.0-100.0); Mean Platelet Volume 10.2 fL (9.4-12.4); Platelet Count 284 K/mcL (140-400); Red Blood Count 3.49 M/mcL (3.82-4.97); Red Cell Distribution Width 15.3 % (11.5-14.5); White Blood Count 19.2 K/mcL (4.3-11.1)
[2019-04-21 03:30] LABS: Hemoglobin 9.8 g/dL (11.5-15.4)
[2019-04-21 03:31] LABS: BUN/Creatinine Ratio 30 (6-26); Blood Urea Nitrogen 25 mg/dL (8-23); Calcium 8.6 mg/dL (8.6-10.3); Carbon Dioxide 29 mEq/L (23-29); Chloride 98 mEq/L (98-107); Glucose 114 mg/dL (70-105); Osmolality,Calculated 285 (280-300); Potassium 4.5 mEq/L (3.5-5.1); Sodium 135 mEq/L (136-145); eGFR For African Americans > 60 (> 60); eGFR For Non-African Americans > 60 (> 60)
[2019-04-21] MEDS: *HR* Enoxaparin 40 MG/0.4 ML SYRINGE SQ SCH (05:21)
[2019-04-21] MEDS ORDERED: *HR* Enoxaparin 40 MG/0.4 ML SYRINGE SQ SCH (06:00)
[2019-04-21] MEDS: Insulin LISPRO 300 UNITS/3 ML VIAL SQ SCH ×4 (08:59→20:43)
[2019-04-21] MEDS: *HR* OxyCODONE/APAP 5/325 TABLET PO PRN (12:03)
--- NOTE | 2019-04-21 13:29 | Orthopedics Progress Note ---
Date of Encounter: 04/21/19 Time of Encounter: 06:30 Subjective Principal diagnosis: Distal humerus fracture, status post total shoulder Interval history: Patient was seen this morning doing well without complaints. Afebrile vital signs stable. Operative extremity: Neurovascularly intact Dressing clean dry and intact Calves nontender Assessment and plan: Continue with postoperative care . Objective Vital signs: Vital Signs Temp Pulse Resp BP Pulse Ox 04/21/19 10:55 98.9 F 129 18 127/81 95 04/21/19 07:25 98.1 F 97 18 131/78 94 04/21/19 04:02 98.4 F 101 20 135/83 93 04/20/19 22:52 97.5 F L 89 28 115/73 97 04/20/19 21:15 93 04/20/19 20:31 104/62 04/20/19 19:19 97.6 F 112 32 93 04/20/19 18:20 97.6 F 108 28 99/65 94 04/20/19 17:20 97.6 F 109 24 106/67 94 04/20/19 16:50 97.7 F 106 32 122/80 97 04/20/19 16:21 97.7 F 99 32 123/32 100 04/20/19 15:59 98.1 F 108 20 129/70 97 04/20/19 15:49 108 24 129/68 96 04/20/19 15:39 112 24 141/60 97 04/20/19 15:29 98.5 F 110 18 147/72 100 04/20/19 15:09 108 24 140/78 100 04/20/19 14:59 98.4 F 108 20 144/68 96 Intake and Output 04/20/19 04/21/19 04/21/19 23:59 07:59 15:59 Intake Total 450 / 450 120 / 120 Output Total 125 / 485 75 / 140 65 / 140 Balance 325 / -35 -75 / -20 55 / -20 Intake: IV Fluids 250 / 250 Ofirmev 1,000 mg/100 ml 1,000 100 / 100 mg In 100 ml @ 400 mls/hr IVPB ONCE ONE Rx#:[id number] Levaquin Premix 750mg/150 mL 150 / 150 750 mg In 150 ml @ 100 mls/hr IVPB 1800 DANIELLA Rx#:[id number] Oral 200 / 200 120 / 120 Output: Wound Drainage 125 / 125 75 / 140 65 / 140 Left Shoulder 125 / 125 75 / 140 65 / 140 Other: Meal Breakfast Percent of Meal Consumed 20% Weight 96.6 kg Blood Glucose* 141 115 135 Patient Weight 04/21/19 23:59 Weight 96.6 kg - Labs CBC & BMP: 04/21/19 03:03 04/21/19 03:03 Labs: Abnormal lab results WBC 19.2 K/mcL (4.3-11.1) H 04/21/19 03:03 RBC 3.49 M/mcL (3.82-4.97) L 04/21/19 03:03 Hgb 9.8 g/dL (11.5-15.4) L D 04/21/19 03:03 Hct 30.2 % (35.3-44.9) L 04/21/19 03:03 MCH 27.5 pg (28.0-33.3) L 04/20/19 05:12 MCHC 31.3 g/dL (31.6-35.5) L 04/19/19 04:14 RDW 15.3 % (11.5-14.5) H 04/21/19 03:03 Neutrophils # 16.3 K/mcL (1.6-8.9) H 04/19/19 04:14 PT 13.8 Seconds (9.4-12.1) H 04/17/19 20:42 Sodium 135 mEq/L (136-145) L 04/21/19 03:03 Chloride 97 mEq/L (98-107) L 04/20/19 05:12 Carbon Dioxide 31 mEq/L (23-29) H 04/20/19 05:12 BUN 25 mg/dL (8-23) H 04/21/19 03:03 Creatinine 0.42 mg/dL (0.60-1.20) L 04/20/19 05:12 BUN/Creatinine Ratio 30 (6-26) H 04/21/19 03:03 Glucose 114 mg/dL (70-105) H 04/21/19 03:03 POC Glucose 141 mg/dL (70-99) H 04/20/19 20:31 Hemoglobin A1c 5.7 % (-5.6) H 04/18/19 01:31 Serum Total Protein 5.8 g/dL (6.4-8.9) L 04/17/19 20:42 Albumin 3.0 g/dL (3.5-5.7) L 04/17/19 20:42 LDL Cholesterol, Calc 106 mg/dL (0-99) H 04/18/19 01:31 HDL Cholesterol 27 mg/dL (40-59) L 04/18/19 01:31 Cholesterol/HDL Ratio 6.0 (0-4.9) H 04/18/19 01:31 Ur Specific [place] 1.027 (1.010-1.025) H 04/18/19 01:15 Urine Ketones 15 mg/dL (Negative) H 04/18/19 01:15 Urine Blood Small (Negative) H 04/18/19 01:15 Urine Bilirubin Small (Negative) H 04/18/19 01:15 Ur Leukocyte Esterase Trace (Negative) H 04/18/19 01:15 Urine Microscopic WBC 3-5 per hpf (0-3) H 04/18/19 01:15 Ur Squamous Epith Cells Many per lpf (None-Few) H 04/18/19 01:15 Ur Culture Indicated? YES (NO) A 04/18/19 01:15 Nasal Screen MRSA (PCR) DETECTED (Not Detect) A 04/19/19 13:13 Consult Discharge Plan - Plan Referrals: NONE,PCP [Primary Care Provider] - Prescriptions: Docusate [Colace] 100 mg PO BID 5 Days #10 capsule Ibuprofen [Motrin] 600 mg PO Q6HR PRN 7 Days #28 tab PRN Reason: Pain Acetaminophen [Pain Relief] 500 mg PO Q6H 7 Days #28 tablet OxyCODONE Immed Rel [Roxicodone 5 MG] 5 mg PO Q6HR PRN 5 Days #20 tablet PRN Reason: Severe Pain
--- NOTE | 2019-04-21 14:23 | Event Note ---
Date of Encounter: 04/21/19 Time of Encounter: 12:20 PCR - POD#1 Revision humeral component left total shoulder replacement reverse, open reduction internal fixation left humerus. Patient seen at bedside, without complaints. A&O x 3 Afebrile, vital signs stable. Dressings c/d/i, sensation intact distally. swelling noted in fingers but good ROM of all fingers brace intact. encouraged to keep hand elevated and continue motion of fingers to help decrease swelling in hand. TEX drain in place, minimal drainage inside but was recently empties per patient. recorded 140cc so far today removed from drain. Labs reviewed. H/H - 9.8/30.2 stable, asymptomatic Pain control: adequate Participating in PT. NO SHOULDER or ELBOW ROM. wear brace at all times. NWB Use bone stimulator 3 hrs daily to humerus. All questions and concerns addressed. Educated on use of incentive spirometer. Encouraged ambulation and proper hydration. Patient educated on post-operative restrictions and post-operative care. Assessment and plan: Continue with postoperative care Discharge plan: once drain removed and medically cleared, plan to return to [facility]
--- NOTE | 2019-04-21 14:35 | Internal Med Progress Note ---
<Britt Mercedes - Last Filed: 04/21/19 14:50> Hospitalist Progress Note - Encounter Date of Encounter: 04/21/19 Time of Encounter: 09:20 - Exam Vitals: Temp Pulse Resp BP Pulse Ox 98.9 F 129 18 127/81 95 04/21/19 10:55 04/21/19 10:55 04/21/19 10:55 04/21/19 10:55 04/21/19 10:55 - Assessment and Plan (1) Displaced fracture of proximal end of left humerus Current Visit: Yes Status: Acute (2) Diabetes mellitus type 2 in obese Current Visit: Yes Status: Chronic (3) Generalized weakness Current Visit: Yes Status: Inactive (4) Failure to thrive in adult Current Visit: Yes Status: Acute (5) Anemia Current Visit: Yes Status: Acute (6) DVT prophylaxis Current Visit: Yes Status: Acute - Time Spent with Patient Total time spent is greater than 50% in coordination of care (as documented) at patient's floor/unit and/or counseling patient: Internal Medicine: Result - Labs CBC & Chem 7: 04/21/19 03:03 04/21/19 03:03 Labs: Short CBC 04/20/19 04/21/19 Range/Units 15:30 03:03 WBC 19.2 H (4.3-11.1) K/mcL Hgb 11.5 9.8 L D (11.5-15.4) g/dL Hct 37.1 30.2 L (35.3-44.9) % Plt Count 284 (140-400) K/mcL BMP 04/21/19 03:03 Sodium 135 L Potassium 4.5 Chloride 98 Carbon Dioxide 29 BUN 25 H Creatinine 0.83 Glucose 114 H Calcium 8.6 - ABG Interpretation ABG results: PT/INR, D-dimer PT 13.8 Seconds (9.4-12.1) H 04/17/19 20:42 - Impressions Impressions Humerus X-Ray 04/20/19 11:59 IMPRESSION: Postsurgical changes of open reduction internal fixation of mid to distal left humeral diaphyseal fracture. Increased left mid and lower lung airspace disease suspected, not well evaluated. Correlation is recommended. PA and lateral chest x-ray may be helpful if indicated. D/ / Brenda Magallanes Cha, MD / Brenda Magallanes Cha, MD Interpreting Provider: Brenda Magallanes Cha, MD Shoulder X-Ray 04/20/19 11:59 IMPRESSION: Postsurgical changes of open reduction internal fixation of mid to distal left humeral diaphyseal fracture. Increased left mid and lower lung airspace disease suspected, not well evaluated. Correlation is recommended. PA and lateral chest x-ray may be helpful if indicated. D/ / Brenda Magallanes Cha, MD / Brenda Magallanes Cha, MD Interpreting Provider: Brenda Magallanes Cha, MD Consult Discharge Plan - Plan Referrals: NONE,PCP [Primary Care Provider] - Prescriptions: Docusate [Colace] 100 mg PO BID 5 Days #10 capsule Ibuprofen [Motrin] 600 mg PO Q6HR PRN 7 Days #28 tab PRN Reason: Pain Acetaminophen [Pain Relief] 500 mg PO Q6H 7 Days #28 tablet OxyCODONE Immed Rel [Roxicodone 5 MG] 5 mg PO Q6HR PRN 5 Days #20 tablet PRN Reason: Severe Pain - Attending Attestation I saw evaluated and examined this patient and reviewed objective data including labs and my medical decision-making was reviewed with the Resident Physician, Reshma De Santiago. I agree with the documented findings, disposition and treatment plan as described except to any changes set forth below. We independently had [id number] contact with the patient. Patient sitting up in chair. She just worked with physical therapy and was able to take a few steps. She underwent surgery yesterday. Doing fairly well postoperatively. Denies any dizziness or lightheadedness. No nausea or vomiting. No fevers or chills overnight. Pain in left shoulder fairly controlled. She does have anemia Postoperatively with hemoglobin of 9.8. She developed sinus tachycardia with activity. Will monitor with telemetry. We will check thyroid profile. Obtain EKG. Monitor hemoglobin levels. No indication for transfusion at this time. O2 supplementation as needed. Placement to skilled rehabilitation once medically cleared and drain removed. <Reshma De Santiago E - Last Filed: 04/21/19 17:41> Hospitalist Progress Note - Encounter Date of Encounter: 04/21/19 - Subjective Interval History: Patient was seen and examined at bedside today. She states that she has slight pain to her right shoulder. She denies any chest pain, shortness of breath, nausea, vomiting, diarrhea. She states she just feels "off" - Exam Vitals: Temp Pulse Resp BP Pulse Ox 98.9 F 129 18 127/81 95 04/21/19 10:55 04/21/19 10:55 04/21/19 10:55 04/21/19 10:55 04/21/19 10:55 Exam: General: AAO 3, no acute distress, answers questions appropriately Head: normocephalic, atraumatic Eyes: DONNA, no icterus Cardio: RRR, no mumurs, rubs, or gallops Respiratory: CTAB, no wheezing, rhonchi, rales Abd: normal bowel sounds, no guarding or rigidity Extremities: Left upper extremity wrapped with drain in place that is draining serosanguineous fluid. 1+ pitting edema bilateral lower extremities Skin: warm, dry, intact - Assessment and Plan (1) Displaced fracture of proximal end of left humerus Current Visit: Yes Status: Acute Assessment and Plan: Patient is post total shoulder replacement surgery that is rotated out and presented with left upper extremity pain and swelling Causing fracture currently unknown as patient denies fall X-ray showed oblique distal humerus diaphyseal fracture CT left arm showed acute obliquely oriented mid shaft humeral fracture with large interposed hematoma and some muscle expansion likely deep to interstitial muscle hemorrhage Surgery yesterday for revision of humeral component and open reduction and internal fixation of humerus fracture (2) Status post reverse total shoulder replacement Current Visit: No Status: Acute Assessment and Plan: Patient is post total shoulder replacement Two-view x-ray of left femur shows total left shoulder arthroplasty (3) Sepsis Current Visit: Yes Status: Acute Assessment and Plan: Patient met sepsis criteria 3 days ago with temperature of 103, heart rate 104, respiratory rate of 20, white blood cell count of 18.2 Sepsis likely due to MRSA pneumonia Chex x-ray showed small bilateral pleural effusions with bibasilar airspace disease that could represent atelectasis or pneumonia left greater than right Patient is clinically stable at this time except for tachycardia Blood cultures drawn on April 18 results pending Urine cultures were negative Nasal swab for MRSA was positive Continue Levaquin day 4 and vancomycin day 2 (4) Tachycardia Current Visit: Yes Status: Acute Assessment and Plan: Possibly due to pain, sepsis, anemia Continue to monitor and add medications as necessary DVT Prophylaxis: SCDs - Time Spent with Patient Total time spent is greater than 50% in coordination of care (as documented) at patient's floor/unit and/or counseling patient: Internal Medicine: Result - Labs CBC & Chem 7: 04/21/19 03:03 04/21/19 03:03 Labs: Short CBC 04/20/19 04/21/19 Range/Units 15:30 03:03 WBC 19.2 H (4.3-11.1) K/mcL Hgb 11.5 9.8 L D (11.5-15.4) g/dL Hct 37.1 30.2 L (35.3-44.9) % Plt Count 284 (140-400) K/mcL BMP 04/21/19 03:03 Sodium 135 L Potassium 4.5 Chloride 98 Carbon Dioxide 29 BUN 25 H Creatinine 0.83 Glucose 114 H Calcium 8.6 - ABG Interpretation ABG results: PT/INR, D-dimer PT 13.8 Seconds (9.4-12.1) H 04/17/19 20:42 - Impressions Impressions Humerus X-Ray 04/20/19 11:59 IMPRESSION: Postsurgical changes of open reduction internal fixation of mid to distal left humeral diaphyseal fracture. Increased left mid and lower lung airspace disease suspected, not well evaluated. Correlation is recommended. PA and lateral chest x-ray may be helpful if indicated. D/ / Brenda Magallanes Cha, MD / Brenda Magallanes Cha, MD Interpreting Provider: Brenda Magallanes Cha, MD Shoulder X-Ray 04/20/19 11:59 IMPRESSION: Postsurgical changes of open reduction internal fixation of mid to distal left humeral diaphyseal fracture. Increased left mid and lower lung airspace disease suspected, not well evaluated. Correlation is recommended. PA and lateral chest x-ray may be helpful if indicated. D/ / Brenda Magallanes Cha, MD / Brenda Magallanes Cha, MD Interpreting Provider: Brenda Magallanes Cha, MD <Britt Mercedes - Last Filed: 04/21/19 14:50> (5) Anemia Qualifiers: Anemia type: unspecified type Qualified Code(s): D64.9 - Anemia, unspecified <Reshma De Santiago - Last Filed: 04/21/19 17:41> (2) Status post reverse total shoulder replacement Qualifiers: Laterality: left Qualified Code(s): Z96.612 - Presence of left artificial shoulder joint
[2019-04-21] MEDS ORDERED: 0.9 % Sodium Chloride 500 ML IVC ONE (17:23)
[2019-04-21] MEDS: 0.9 % Sodium Chloride 1,000 ML IVC SCH (18:24)
[2019-04-22 04:21] LABS: Hematocrit 29.3 % (35.3-44.9); Hemoglobin 9.5 g/dL (11.5-15.4)
[2019-04-22 04:35] LABS: BUN/Creatinine Ratio 39 (6-26); Blood Urea Nitrogen 28 mg/dL (8-23); Calcium 8.4 mg/dL (8.6-10.3); Carbon Dioxide 26 mEq/L (23-29); Chloride 101 mEq/L (98-107); Glucose 119 mg/dL (70-105); Osmolality,Calculated 291 (280-300); Potassium 4.1 mEq/L (3.5-5.1); Sodium 137 mEq/L (136-145); eGFR For African Americans > 60 (> 60); eGFR For Non-African Americans > 60 (> 60)
[2019-04-22] MEDS: *HR* Enoxaparin 40 MG/0.4 ML SYRINGE SQ SCH (05:53)
[2019-04-22] MEDS: 0.9 % Sodium Chloride 1,000 ML IVC SCH (06:40)
--- NOTE | 2019-04-22 08:51 | Electrocardiograph Report ---
[employer] Test Date: 2019-04-21 Pat Name: Nallely Topete Department: 114 Room: [facility] Gender: F Certified Veterinary Technician: : 1940 Requested By: Edgar Morrow Order Number: [id number] Reading MD: Jose Ferris Measurements Intervals [place] Rate: 109 P: 24 MA: 126 QRS: 26 QRSD: 126 T: -11 QT: 301 QTc: 365 Interpretive Statements SINUS TACHYCARDIA RIGHT BUNDLE BRANCH BLOCK INTERPRETATION BASED ON A DEFAULT AGE OF 40 YEARS Electronically Signed On 04-22-2019 8:49:58 EDT by Jose Ferris
[2019-04-22 08:56] LABS: Hematocrit 29.5 % (35.3-44.9); Hemoglobin 9.4 g/dL (11.5-15.4); Mean Corpuscular HGB Conc 31.9 g/dL (31.6-35.5); Mean Corpuscular Hemoglobin 27.7 pg (28.0-33.3); Mean Platelet Volume 10.2 fL (9.4-12.4); Platelet Count 312 K/mcL (140-400); Red Blood Count 3.39 M/mcL (3.82-4.97); Red Cell Distribution Width 15.6 % (11.5-14.5); White Blood Count 19.2 K/mcL (4.3-11.1)
[2019-04-22] MEDS: Insulin LISPRO 300 UNITS/3 ML VIAL SQ SCH ×4 (08:58→21:39)
--- NOTE | 2019-04-22 10:35 | Internal Med Progress Note ---
<Britt Mercedes - Last Filed: 04/22/19 14:38> Hospitalist Progress Note - Encounter Date of Encounter: 04/22/19 Time of Encounter: 09:35 - Exam Vitals: Temp Pulse Resp BP Pulse Ox 98.7 F 105 18 127/80 96 04/22/19 11:13 04/22/19 11:13 04/22/19 11:13 04/22/19 11:13 04/22/19 11:13 - Assessment and Plan (1) Displaced fracture of proximal end of left humerus Current Visit: Yes Status: Acute (2) Diabetes mellitus type 2 in obese Current Visit: Yes Status: Chronic (3) Generalized weakness Current Visit: Yes Status: Inactive (4) Failure to thrive in adult Current Visit: Yes Status: Acute (5) Anemia Current Visit: Yes Status: Acute (6) DVT prophylaxis Current Visit: Yes Status: Acute - Time Spent with Patient Total time spent is greater than 50% in coordination of care (as documented) at patient's floor/unit and/or counseling patient: Internal Medicine: Result - Labs CBC & Chem 7: 04/22/19 08:41 04/22/19 03:34 Labs: Short CBC 04/22/19 04/22/19 Range/Units 03:34 08:41 WBC 19.2 H (4.3-11.1) K/mcL Hgb 9.5 L 9.4 L (11.5-15.4) g/dL Hct 29.3 L 29.5 L (35.3-44.9) % Plt Count 312 (140-400) K/mcL BMP 04/22/19 03:34 Sodium 137 Potassium 4.1 Chloride 101 Carbon Dioxide 26 BUN 28 H Creatinine 0.72 Glucose 119 H Calcium 8.4 L - ABG Interpretation ABG results: PT/INR, D-dimer PT 13.8 Seconds (9.4-12.1) H 04/17/19 20:42 - Impressions Impressions Shoulder X-Ray 04/22/19 06:41 IMPRESSION: Stable postsurgical changes of the left shoulder/humerus. D/ / Brock Ortiz MD / Brock Ortiz MD Interpreting Provider: Brock Ortiz MD Consult Discharge Plan - Plan Referrals: NONE,PCP [Primary Care Provider] - Prescriptions: Docusate [Colace] 100 mg PO BID 5 Days #10 capsule Ibuprofen [Motrin] 600 mg PO Q6HR PRN 7 Days #28 tab PRN Reason: Pain Acetaminophen [Pain Relief] 500 mg PO Q6H 7 Days #28 tablet OxyCODONE Immed Rel [Roxicodone 5 MG] 5 mg PO Q6HR PRN 5 Days #20 tablet PRN Reason: Severe Pain - Attending Attestation I saw evaluated and examined this patient and reviewed objective data including labs and my medical decision-making was reviewed with the Resident Physician, Jacek Anderson. I agree with the documented findings, disposition and treatment plan as described except to any changes set forth below. We independently had lojo-az-prfa contact with the patient. Patient was more somnolent this morning but appears to be waking up more now. She is able to answer questions appropriately. Reports that her pain in her left shoulder is well controlled. She states that she was not hungry this morning and did not eat much breakfast. No fever or chills reported overnight. No nausea or vomiting. No chest pain or palpitations. Continue PTOT. Status post revision of femoral complement left total shoulder replacement reverse and open reduction internal fixation of left humerus. Postop day 2. Awaiting placement to skilled rehabilitation. Sepsis with pneumonia: Unclear if sepsis present on admission but patient was already receiving IV antibiotics for pneumonia by the time she met sepsis criteria on 04/19. MRSA screen was positive. WBC count remains elevated but patient did not have any clinical signs or symptoms of worsening pneumonia. Her elevated WBC count could be due to underlying pneumonia and postoperative reactive leukocytosis. No fever or chills reported. No diarrhea. No other signs of infection at this time. Wound cultures from surgery are negative. Blood cultures are also negative. Anemia: Hemoglobin stable. 9.4 today. Dyspnea: Patient developed some shortness of breath earlier today. IV fluids have been stopped. Continue O2 supplementation as needed. Her urine output has also improved. We will discontinue Arana catheter today. Assess for spontaneous urination later today. If patient unable to pass urine spontaneously, will obtain bladder scan. <Jacek Anderson I - Last Filed: 04/22/19 16:39> Hospitalist Progress Note - Encounter Date of Encounter: 04/22/19 - Subjective Interval History: Patient is seen and examined today . She is more somnolent today but able to answer questions appropriately. Reports that her pain in her left shoulder is well controlled. She states that she was not hungry this morning and did not eat much breakfast. No fever or chills reported overnight. No nausea or vomiting. No chest pain or palpitations. - Exam Vitals: Temp Pulse Resp BP Pulse Ox 98.7 F 99 20 128/82 94 04/22/19 07:30 04/22/19 07:30 04/22/19 07:30 04/22/19 07:30 04/22/19 07:30 Exam: General: AAO 3, no acute distress, answers questions appropriately Head: normocephalic, atraumatic Eyes: DONNA, no icterus Cardio: RRR, no mumurs, rubs, or gallops Respiratory: CTAB, no wheezing, rhonchi, rales Abd: normal bowel sounds, no guarding or rigidity Extremities: Left upper extremity wrapped with drain in place that is draining serosanguineous fluid. 1+ pitting edema bilateral lower extremities Skin: warm, dry, intact - Assessment and Plan (1) Displaced fracture of proximal end of left humerus Current Visit: Yes Status: Acute Assessment and Plan: Cause of fracture currently unknown as patient denies fall post operative day 2 for revision of humeral component and open reduction and internal fixation of humerus fracture continue PT/OT awaiting placement to skilled rehab (2) Sepsis Current Visit: Yes Status: Acute Assessment and Plan: Sepsis likely due to MRSA pneumonia [place] x-ray showed small bilateral pleural effusions with bibasilar airspace disease that could represent atelectasis or pneumonia left greater than right WBC count remains elevated today 19.2 could be due to underlying pneumonia and postoperative reactive leukocytosis. clinically Stable. No fever or chills reported. Wound cultures from surgery are negative. Blood cultures are also negative. Nasal swab for MRSA was positive Continue Levaquin day 5 and vancomycin day 3 (3) Tachycardia Current Visit: Yes Status: Acute Assessment and Plan: HR 102 Possibly due to pain, sepsis, anemia Continue to monitor and add medications as necessary (4) Dyspnea Current Visit: Yes Status: Acute Assessment and Plan: Patient developed some shortness of breath earlier today. IV fluids have been stopped. Continue O2 supplementation as needed. (5) Decreased urine output Current Visit: Yes Status: Acute Assessment and Plan: UO 400 cc IV fluids have been stopped. We discontinued Arana catheter today if decrease UO plan for bladder scan (6) Anemia Current Visit: Yes Status: Acute Assessment and Plan: Hemoglobin stable. 9.4 today. (7) Morbid obesity with BMI of 40.0-44.9, adult Current Visit: No Status: Chronic (8) Status post reverse total shoulder replacement Current Visit: No Status: Acute Assessment and Plan: Patient is post total shoulder replacement Two-view x-ray of left femur shows total left shoulder arthroplasty - Time Spent with Patient Total time spent is greater than 50% in coordination of care (as documented) at patient's floor/unit and/or counseling patient: Internal Medicine: Result - Labs CBC & Chem 7: 04/22/19 08:41 04/22/19 03:34 Labs: Short CBC 04/22/19 04/22/19 Range/Units 03:34 08:41 WBC 19.2 H (4.3-11.1) K/mcL Hgb 9.5 L 9.4 L (11.5-15.4) g/dL Hct 29.3 L 29.5 L (35.3-44.9) % Plt Count 312 (140-400) K/mcL BMP 04/22/19 03:34 Sodium 137 Potassium 4.1 Chloride 101 Carbon Dioxide 26 BUN 28 H Creatinine 0.72 Glucose 119 H Calcium 8.4 L - ABG Interpretation ABG results: PT/INR, D-dimer PT 13.8 Seconds (9.4-12.1) H 04/17/19 20:42 - Impressions Impressions Shoulder X-Ray 04/22/19 06:41 IMPRESSION: Stable postsurgical changes of the left shoulder/humerus. D/ / Brock Ortiz MD / Brock Ortiz MD Interpreting Provider: Brock Ortiz MD <Britt Mercedes - Last Filed: 04/22/19 14:38> (5) Anemia Qualifiers: Anemia type: unspecified type Qualified Code(s): D64.9 - Anemia, unspecified <Jacek Anderson I - Last Filed: 04/22/19 16:39> (6) Anemia Qualifiers: Anemia type: unspecified type Qualified Code(s): D64.9 - Anemia, unspecified (8) Status post reverse total shoulder replacement Qualifiers: Laterality: left Qualified Code(s): Z96.612 - Presence of left artificial shoulder joint
[2019-04-22] MEDS: levoFLOXacin 750 MG/150 ML 750 MG/150 ML BAG IVPB SCH (13:34)
--- NOTE | 2019-04-22 14:19 | Orthopedics Progress Note ---
Date of Encounter: 04/22/19 Time of Encounter: 12:20 - Assessment and Plan (1) Status post reverse total shoulder replacement Current Visit: No Status: Acute Qualifiers: Laterality: left Qualified Code(s): Z96.612 - Presence of left artificial shoulder joint (2) Displaced fracture of proximal end of left humerus Current Visit: Yes Status: Acute Subjective Principal diagnosis: Distal humerus fracture, status post total shoulder Interval history: PCR - POD#2 Revision humeral component left total shoulder replacement reverse, open reduction internal fixation left humerus. Patient seen at bedside, without complaints. A&O x 3 Afebrile, vital signs stable. sensation intact distally. swelling noted in fingers but good ROM of all fingers brace intact. encouraged to keep hand elevated and continue motion of fingers to help decrease swelling in hand. TEX drain was removed early this morning per Dr. Lindsey. Green drainage noted on dressings - all dressings taken down, green coloration was on outer most layer with clean gauze underneath likely from old serous drainage leaking down. Incision exposed and there is no active bleeding drainage and no erythema or other s/s infection. New xeroform, dry gauze kerlix dressings applied with the posterior splint and sling. Medical management per primary team. Labs reviewed. H/H - 9.4/29.5 stable, asymptomatic Pain control: adequate Participating in PT. NO SHOULDER or ELBOW ROM. wear brace at all times. NWB Use bone stimulator 3 hrs daily to humerus. All questions and concerns addressed. Educated on use of incentive spirometer. Encouraged ambulation and proper hydration. Patient educated on post-operative restrictions and post-operative care. Assessment and plan: Continue with postoperative care Discharge plan: once drain removed and medically cleared, plan to return to [facility] Objective Vital signs: Vital Signs Temp Pulse Resp BP Pulse Ox 04/22/19 11:13 98.7 F 105 18 127/80 96 04/22/19 07:30 98.7 F 99 20 128/82 94 04/22/19 03:39 98.8 F 103 25 112/76 93 04/21/19 22:38 99.1 F 108 30 128/77 91 04/21/19 20:40 91 04/21/19 18:40 98.2 F 110 20 127/77 91 Intake and Output 04/21/19 04/22/19 04/22/19 23:59 07:59 15:59 Intake Total 850 / 970 1000 / 1050 50 / 1050 Output Total 495 / 810 460 / 560 100 / 560 Balance 355 / 160 540 / 490 -50 / 490 Intake: IV Fluids 750 / 750 1000 / 1000 0.9 % Sodium Chloride 1,000 ML 1000 / 1000 @ 75 mls/hr IVC .[id number] [facility] Rx #:[id number] 0.9 % Sodium Chloride 500 ML @ 500 / 500 999 mls/hr IVC .Q31M ONE Rx#: [id number] Vancocin 1,500 MG In 0.9 % 250 / 250 Sodium Chloride 250 ML @ 166.67 mls/hr IVPB Q24H [facility] Rx#: [id number] Oral 100 / 220 0 / 50 50 / 50 Output: Urine 0 / 0 Catheter 425 / 575 400 / 500 100 / 500 Wound Drainage 70 / 235 60 / 60 Left Shoulder 70 / 235 60 / 60 Other: Weight 96.7 kg Blood Glucose* 159 115 Patient Weight 04/22/19 23:59 Weight 96.7 kg - Labs CBC & BMP: 04/22/19 08:41 04/22/19 03:34 Labs: Abnormal lab results WBC 19.2 K/mcL (4.3-11.1) H 04/22/19 08:41 RBC 3.39 M/mcL (3.82-4.97) L 04/22/19 08:41 Hgb 9.4 g/dL (11.5-15.4) L 04/22/19 08:41 Hct 29.5 % (35.3-44.9) L 04/22/19 08:41 MCH 27.7 pg (28.0-33.3) L 04/22/19 08:41 MCHC 31.3 g/dL (31.6-35.5) L 04/19/19 04:14 RDW 15.6 % (11.5-14.5) H 04/22/19 08:41 Neutrophils # 16.3 K/mcL (1.6-8.9) H 04/19/19 04:14 PT 13.8 Seconds (9.4-12.1) H 04/17/19 20:42 Sodium 135 mEq/L (136-145) L 04/21/19 03:03 Chloride 97 mEq/L (98-107) L 04/20/19 05:12 Carbon Dioxide 31 mEq/L (23-29) H 04/20/19 05:12 BUN 28 mg/dL (8-23) H 04/22/19 03:34 Creatinine 0.42 mg/dL (0.60-1.20) L 04/20/19 05:12 BUN/Creatinine Ratio 39 (6-26) H 04/22/19 03:34 Glucose 119 mg/dL (70-105) H 04/22/19 03:34 POC Glucose 115 mg/dL (70-99) H 04/22/19 11:08 Hemoglobin A1c 5.7 % (-5.6) H 04/18/19 01:31 Calcium 8.4 mg/dL (8.6-10.3) L 04/22/19 03:34 Serum Total Protein 5.8 g/dL (6.4-8.9) L 04/17/19 20:42 Albumin 3.0 g/dL (3.5-5.7) L 04/17/19 20:42 LDL Cholesterol, Calc 106 mg/dL (0-99) H 04/18/19 01:31 HDL Cholesterol 27 mg/dL (40-59) L 04/18/19 01:31 Cholesterol/HDL Ratio 6.0 (0-4.9) H 04/18/19 01:31 Ur Specific [place] 1.027 (1.010-1.025) H 04/18/19 01:15 Urine Ketones 15 mg/dL (Negative) H 04/18/19 01:15 Urine Blood Small (Negative) H 04/18/19 01:15 Urine Bilirubin Small (Negative) H 04/18/19 01:15 Ur Leukocyte Esterase Trace (Negative) H 04/18/19 01:15 Urine Microscopic WBC 3-5 per hpf (0-3) H 04/18/19 01:15 Ur Squamous Epith Cells Many per lpf (None-Few) H 04/18/19 01:15 Ur Culture Indicated? YES (NO) A 04/18/19 01:15 Nasal Screen MRSA (PCR) DETECTED (Not Detect) A 04/19/19 13:13 Vancomycin Trough 12 mcg/mL (5-10) H 04/22/19 10:40 Consult Discharge Plan - Plan Referrals: NONE,PCP [Primary Care Provider] - Prescriptions: Docusate [Colace] 100 mg PO BID 5 Days #10 capsule Ibuprofen [Motrin] 600 mg PO Q6HR PRN 7 Days #28 tab PRN Reason: Pain Acetaminophen [Pain Relief] 500 mg PO Q6H 7 Days #28 tablet OxyCODONE Immed Rel [Roxicodone 5 MG] 5 mg PO Q6HR PRN 5 Days #20 tablet PRN Reason: Severe Pain
[2019-04-22] MEDS: *HR* OxyCODONE/APAP 5/325 TABLET PO PRN (16:58)
[2019-04-22] MEDS ORDERED: levoFLOXacin 750 MG/150 ML 750 MG/150 ML BAG IVPB SCH (18:00)
[2019-04-22] MEDS: *HR* OxyCODONE Immed Rel 5 MG TABLET PO PRN (23:49)
[2019-04-23 04:54] LABS: Basophils # 0.1 K/mcL (0.0-0.2); Basophils % 0.4 %; Eosinophils % 0.2 %; Hematocrit 29.8 % (35.3-44.9); Hemoglobin 9.3 g/dL (11.5-15.4); Immature Granulocytes % 1.6 % (0-4); Lymphocytes # 0.8 K/mcL (0.6-4.6); Mean Corpuscular HGB Conc 31.2 g/dL (31.6-35.5); Mean Corpuscular Hemoglobin 27.3 pg (28.0-33.3); Mean Corpuscular Volume 87.4 fL (83.0-100.0); Mean Platelet Volume 11.3 fL (9.4-12.4); Monocytes # 1.3 K/mcL (0.0-1.3); Monocytes % 8.7 %; Platelet Count 308 K/mcL (140-400); Red Blood Count 3.41 M/mcL (3.82-4.97); Red Cell Distribution Width 15.4 % (11.5-14.5); Segmented Neutrophils % 84.1 %; White Blood Count 15.3 K/mcL (4.3-11.1)
[2019-04-23 04:55] LABS: Neutrophils # 12.9 K/mcL (1.6-8.9)
[2019-04-23 05:01] LABS: BUN/Creatinine Ratio 48 (6-26); Blood Urea Nitrogen 26 mg/dL (8-23); Calcium 8.6 mg/dL (8.6-10.3); Carbon Dioxide 26 mEq/L (23-29); Chloride 101 mEq/L (98-107); Glucose 130 mg/dL (70-105); Osmolality,Calculated 289 (280-300); Potassium 3.9 mEq/L (3.5-5.1); Sodium 136 mEq/L (136-145); eGFR For African Americans > 60 (> 60); eGFR For Non-African Americans > 60 (> 60)
[2019-04-23 05:19] LABS: Platelet Estimate Normal (Normal)
[2019-04-23] MEDS: *HR* Enoxaparin 40 MG/0.4 ML SYRINGE SQ SCH (06:26)
[2019-04-23] MEDS: Insulin LISPRO 300 UNITS/3 ML VIAL SQ SCH ×3 (07:56→17:12)
[2019-04-23] MEDS ORDERED: Bisacodyl 10 MG RECTAL SUPPOSITORY RC ONE (09:50)
[2019-04-23] MEDS: *HR* OxyCODONE/APAP 5/325 TABLET PO PRN ×3 (10:17→23:10)
[2019-04-23] MEDS: levoFLOXacin 750 MG/150 ML 750 MG/150 ML BAG IVPB SCH (11:37)
--- NOTE | 2019-04-23 12:42 | Discharge Summary ---
- NOTES TO OUTPATIENT PROVIDER Notes to Outpatient Provider: Admitted to [facility] with UTI, patient diagnosed with a periprosthetic humerus fracture after being admitted for a few days .Underwent revision of humeral component and open reduction internal fixation of humerus fracture. Also daignosed with Pneumonia during hospital stay . will be discharged too [place] with additional 2 more days of oral levaquin and 3 days of linezolid . Orders not resulted at time of discharge: Pending orders 04/18/19 19:29 Culture,Blood [BC] Stat 04/19/19 04:43 Culture,Blood [BC] AM 0400 04/20/19 18:11 Culture,Anaerobic [RM] Routine Date of Encounter: 04/23/19 Time of Encounter: 08:50 - Discharge Diagnosis (1) Displaced fracture of proximal end of left humerus Priority: Primary Status: Acute (2) Sepsis Priority: Secondary Status: Acute Qualifiers: Qualified Code(s): A41.9 - Sepsis, unspecified organism; R65.20 - Severe sepsis without septic shock (3) Tachycardia Priority: Secondary Status: Acute (4) Dyspnea Priority: Secondary Status: Acute Qualifiers: Qualified Code(s): R06.00 - Dyspnea, unspecified (5) Decreased urine output Priority: Secondary Status: Acute (6) Anemia Priority: Secondary Status: Acute Qualifiers: Anemia type: unspecified type Qualified Code(s): D64.9 - Anemia, unspecified (7) Morbid obesity with BMI of 40.0-44.9, adult Priority: Secondary Status: Chronic (8) Status post reverse total shoulder replacement Priority: Secondary Status: Acute Qualifiers: Laterality: left Qualified Code(s): Z96.612 - Presence of left artificial shoulder joint Hospital course: Ms. Topete is a 78 year old female status post total shoulder replacement that had rotated out presented with left upper extremity pain and swelling .X ray of left arm : oblique distal humeral diaphyseal fracture.X ray of left forearm : Generalized soft tissue edema about the forearm.CT of left arm : Acute obliquely oriented midshaft humeral fracture with large interposed hematoma and some muscle expansion likely due to interstitial muscle hemorrhage. Ortho was consulted and recommend revision of humeral component and open reduction internal fixation of humerus fracture. paatient underwent surgery and today is post op day 3 . Patient also met sepsis criteria during admission with T 103 , HR 104, RR20 ,WBC 18.2 due to peumonia .nasal swab for MRSA .CXR There are small bilateral pleural effusions seen on the lateral view, with bibasilar airspace disease which could represent atelectasis or pneumonia, left greater than right.patient was treated with levofloxacin and vacomycin . she is doing better able to have some food but generally has poor appetite , with no bowel mo vement yet . her vitals are stable No other signs of infection at this time. Wound cultures from surgery are negative. Blood cultures are also negative., wbc downtrend . able to make urine . patient encouraged to increase oral intake since that would help with bowel movement and urination . patient will go to [place] with additional 2 more days of leviquin and 3 days linozolid . we stopoped her home lovenox , potasium , ibuprofen and zofran . - Time Spent with Patient Total time spent providing and/or coordinating discharge services: - Discharge Medications Prescriptions: New Docusate [Colace] 100 mg PO BID 30 Days #60 capsule Levofloxacin [Levaquin] 750 mg PO DAILY 2 Days #2 tablet Linezolid 600 mg PO BID 3 Days #6 tablet OxyCODONE/APAP 5/325 [Percocet 5/325 MG] 1 each PO Q4HR PRN 30 Days #120 tablet PRN Reason: pain Lactobacillus [Culturelle] 1 each PO DAILY #10 cap.sprink Sennosides [Senna] 17.6 mg PO HS 10 Days #30 mls Continued Cholecalciferol (D-3) [Vitamin D] 2,000 unit PO DAILY tablet Discontinued Enoxaparin [Lovenox] 40 mg SQ DAILY 30 Days syr Ondansetron [Zofran] 4 mg IVP Q4H PRN vial PRN Reason: Nausea And Vomiting Potassium Chloride 10 meq PO BIDWM tab.er.prt Home Medications: Cholecalciferol (D-3) [Vitamin D] 2,000 unit PO DAILY tablet 04/17/19 [Rx] Docusate [Colace] 100 mg PO BID 30 Days #60 capsule 04/23/19 [Rx] Lactobacillus [Culturelle] 1 each PO DAILY #10 cap.sprink 04/23/19 [Rx] Levofloxacin [Levaquin] 750 mg PO DAILY 2 Days #2 tablet 04/23/19 [Rx] Linezolid 600 mg PO BID 3 Days #6 tablet 04/23/19 [Rx] OxyCODONE/APAP 5/325 [Percocet 5/325 MG] 1 each PO Q4HR PRN 30 Days #120 tablet 04/23/19 [Rx] Sennosides [Senna] 17.6 mg PO HS 10 Days #30 mls 04/23/19 [Rx] Allergies/Adverse Reactions: Allergy/AdvReac Type Severity Reaction Status Date / Time Amoxicillin Allergy Hives Verified 04/12/19 08:05 Penicillins Allergy Hives Verified 04/12/19 08:05 Date of admission: 04/17/19 23:40 Primary care physician: PCP NONE Consults: 04/17/19 22:08 Consult to Nutrition [CONS] Routine Comment: CHOCOLATE BOOST OR ENSURE Consulting Provider: NUTRITION Reason for Dietary Consult: MST Score PO Supplementation 04/17/19 23:32 Consult to Orthopedic Surgery [CONS] Routine Consulting Provider: [facility]oped[facility] Reason for Consult: Patient had left shoulder surgery in January 2019. Patient now has overriding angulated distal humeral diaphyseal fracture. Call Completed: Yes 04/17/19 23:39 Consult to Duplex Trimmer [CONS] Routine Reason for SW Consult: Please assess patient for possible home needs for post-discharge planning. 04/20/19 16:11 Consult to Occupational Therapy [CONS] Routine Comment: post shoulder surgery Reason for Consult: post shoulder surgery Does patient have active BEDREST order?: No Is patient medically & hemodynamically stable?: Yes Consult to Physical Therapy [CONS] Routine Comment: post shoulder surgery Reason for Consult: post shoulder surgery Does patient have active BEDREST order?: No Is patient medically & hemodynamically stable?: Yes Consult to Duplex Trimmer [CONS] Routine Reason for SW Consult: shoulder surgery RT Post Op Consult [CONS] Routine - Constitutional Vitals: Temp Pulse Resp BP Pulse Ox 98.9 F 97 16 125/70 96 04/23/19 12:00 04/23/19 12:00 04/23/19 12:00 04/23/19 12:00 04/23/19 12:00 General appearance: Present: cooperative, A&O X 3, pleasant, no acute distress, obese, answers questions appropriately Exam: General: AAO 3, no acute distress, answers questions appropriately Head: normocephalic, atraumatic Eyes: DONNA, no icterus Cardio: RRR, no mumurs, rubs, or gallops Respiratory: CTAB, no wheezing, rhonchi, rales Abd: normal bowel sounds, no guarding or rigidity Extremities: Left upper extremity wrapped with drain in place that is draining serosanguineous fluid. 1+ pitting edema bilateral lower extremities Skin: warm, dry, intact - Patient Status Disposition: Transfer Inpatient Rehab Fac Condition: Fair Functional capacity at discharge: uses cane/walker Overall status at discharge: patient is progressing back to baseline - Discharge Instructions Follow Up With: NONE,PCP [Primary Care Provider] - - Diet and Activity Activity: as per physical therapy Diet: diabetic diet
--- NOTE | 2019-04-23 13:26 | Physician Discharge Referral ---
ExtendedCare Referral Info Transfer To: [facility] Provider in Charge after Transfer: PCP - Diagnosis (1) Displaced fracture of proximal end of left humerus Priority: Primary Status: Acute (2) Sepsis Priority: Secondary Status: Acute (3) Tachycardia Priority: Secondary Status: Acute (4) Dyspnea Priority: Secondary Status: Acute (5) Decreased urine output Priority: Secondary Status: Acute (6) Anemia Priority: Secondary Status: Acute (7) Morbid obesity with BMI of 40.0-44.9, adult Priority: Secondary Status: Chronic (8) Status post reverse total shoulder replacement Priority: Secondary Status: Acute - Transfer Medications Prescriptions: Docusate [Colace] 100 mg PO BID 30 Days #60 capsule Lactobacillus [Culturelle] 1 each PO DAILY #10 cap.sprink Levofloxacin [Levaquin] 750 mg PO DAILY 2 Days #2 tablet Linezolid 600 mg PO BID 3 Days #6 tablet OxyCODONE/APAP 5/325 [Percocet 5/325 MG] 1 each PO Q4HR PRN 30 Days #120 tablet PRN Reason: pain Sennosides [Senna] 17.6 mg PO HS 10 Days #30 mls Home Medications: Cholecalciferol (D-3) [Vitamin D] 2,000 unit PO DAILY tablet 04/17/19 [Rx] Docusate [Colace] 100 mg PO BID 30 Days #60 capsule 04/23/19 [Rx] Lactobacillus [Culturelle] 1 each PO DAILY #10 cap.sprink 04/23/19 [Rx] Levofloxacin [Levaquin] 750 mg PO DAILY 2 Days #2 tablet 04/23/19 [Rx] Linezolid 600 mg PO BID 3 Days #6 tablet 04/23/19 [Rx] OxyCODONE/APAP 5/325 [Percocet 5/325 MG] 1 each PO Q4HR PRN 30 Days #120 tablet 04/23/19 [Rx] Sennosides [Senna] 17.6 mg PO HS 10 Days #30 mls 04/23/19 [Rx] Allergies/Adverse Reactions: Allergy/AdvReac Type Severity Reaction Status Date / Time Amoxicillin Allergy Hives Verified 04/12/19 08:05 Penicillins Allergy Hives Verified 04/12/19 08:05 - Respiratory Orders Oxygen / L per min (2 liter nasal canula on need) Smoking Cessation: Smoking cessation has been advised. For more information, call the [place] Tobacco Quit Line at 7-215-YJZQ-NOW. - Advance Directives Code Status: Full Code - Rehabiliation Orders Rehab Orders: ROM Exercises, Evaluation for Physical Therapy, Evaluation for Occupational Therapy - Diet Orders No Concentrated Sweets CERTIFICATION: I certify that the transfer of the above named patient to an Extended Care Facility is necessary for the continuing treatment of the diagnosis listed. The above information is true and accurate reflection of patient's current condition. Confidential - Redisclosure prohibited without a patient's written consent.
[2019-04-23] MEDS ORDERED: Milk and Molasses Enema 200 ML RC ONE (13:32)
--- NOTE | 2019-04-23 14:55 | Internal Med Progress Note ---
<MagoBritt - Last Filed: 04/23/19 15:18> Hospitalist Progress Note - Encounter Date of Encounter: 04/23/19 Time of Encounter: 15:19 - Exam Vitals: Temp Pulse Resp BP Pulse Ox 98.9 F 97 16 125/70 96 04/23/19 12:00 04/23/19 12:00 04/23/19 12:00 04/23/19 12:00 04/23/19 12:00 - Assessment and Plan (1) Displaced fracture of proximal end of left humerus Current Visit: Yes Status: Acute (2) Diabetes mellitus type 2 in obese Current Visit: Yes Status: Chronic (3) Generalized weakness Current Visit: Yes Status: Inactive (4) Failure to thrive in adult Current Visit: Yes Status: Acute (5) Anemia Current Visit: Yes Status: Acute (6) DVT prophylaxis Current Visit: Yes Status: Acute - Time Spent with Patient Total time spent is greater than 50% in coordination of care (as documented) at patient's floor/unit and/or counseling patient: Internal Medicine: Result - Labs CBC & Chem 7: 04/23/19 02:45 04/23/19 02:45 Labs: Short CBC 04/23/19 Range/Units 02:45 WBC 15.3 H (4.3-11.1) K/mcL Hgb 9.3 L (11.5-15.4) g/dL Hct 29.8 L (35.3-44.9) % Plt Count 308 (140-400) K/mcL Neutrophils # 12.9 H (1.6-8.9) K/mcL BMP 04/23/19 02:45 Sodium 136 Potassium 3.9 Chloride 101 Carbon Dioxide 26 BUN 26 H Creatinine 0.54 L Glucose 130 H Calcium 8.6 - ABG Interpretation ABG results: PT/INR, D-dimer PT 13.8 Seconds (9.4-12.1) H 04/17/19 20:42 - Impressions Impressions Knee X-Ray 04/23/19 12:23 IMPRESSION: 1. Mildly displaced and comminuted fracture of the right distal tibia. 2. Mildly displaced angulated fracture of the right distal fibula. 3. No acute osseous abnormality of the right knee. D/ / Brock Ortiz MD / Brock Ortiz MD Interpreting Provider: Brock Ortiz MD Tibia/Fibula X-Ray 04/23/19 12:23 IMPRESSION: 1. Mildly displaced and comminuted fracture of the right distal tibia. 2. Mildly displaced angulated fracture of the right distal fibula. 3. No acute osseous abnormality of the right knee. D/ / Brock Ortiz MD / Brock Ortiz MD Interpreting Provider: Brock Ortiz MD Consult Discharge Plan - Plan Referrals: NONE,PCP [Primary Care Provider] - Prescriptions: Docusate [Colace] 100 mg PO BID 30 Days #60 capsule Lactobacillus [Culturelle] 1 each PO DAILY #10 cap.sprink Levofloxacin [Levaquin] 750 mg PO DAILY 2 Days #2 tablet Linezolid 600 mg PO BID 3 Days #6 tablet OxyCODONE/APAP 5/325 [Percocet 5/325 MG] 1 each PO Q4HR PRN 30 Days #120 tablet PRN Reason: pain Sennosides [Senna] 17.6 mg PO HS 10 Days #30 mls - Attending Attestation I saw evaluated and examined this patient and reviewed objective data including labs and my medical decision-making was reviewed with the Resident Physician, Jacek Anderson. I agree with the documented findings, disposition and treatment plan as described except to any changes set forth below. We independently had [id number] contact with the patient. Patient complained of right lower extremity pain today. She states that this has been present since her initial presentation here but got worse overnight. Her daughter who is present at bedside states that when she slid to the floor at the facility prior to admission here, she may have gone down with her knees bent underneath her. No imaging studies were done at that time on her lower extremities. We obtained x-ray of her right lower extremity today which shows displaced and comminuted fractures of tibia and fibula. Discussed with orthopedics. Will hold off on discharge until this is addressed. Continue supportive care. WBC count is trending down. Patient continues to have poor appetite. Requiring intermittent straight catheterization as she continues to retain urine. Continue antibiotics for her sepsis and pneumonia. Would recommend a 7 day treatment course. We will place her on lactobacillus. She remains constipated and did not respond to an enema last night. We will attempt another enema today. <Jacek Anderson I - Last Filed: 04/23/19 18:58> Hospitalist Progress Note - Encounter Date of Encounter: 04/23/19 - Subjective Interval History: Today patient was seen and examined . she still has poor oral intake , no bowel movement , un able to urinate by her own . she also did compalin of pain in right knee . denies fever , nausea vommiting . no chest pain . she is still on 2 L nasal canula . - Exam Vitals: Temp Pulse Resp BP Pulse Ox 98.9 F 97 16 125/70 96 04/23/19 12:00 04/23/19 12:00 04/23/19 12:00 04/23/19 12:00 04/23/19 12:00 Exam: General: AAO 3, no acute distress, answers questions appropriately Head: normocephalic, atraumatic Eyes: DONNA, no icterus Cardio: RRR, no mumurs, rubs, or gallops Respiratory: CTAB, no wheezing, rhonchi, rales Abd: normal bowel sounds, no guarding or rigidity Extremities: Left upper extremity wrapped with drain in place that is draining serosanguineous fluid. 1+ pitting edema bilateral lower extremities Skin: warm, dry, intact - Assessment and Plan (1) Fracture of right tibia and fibula Current Visit: Yes Status: Acute Assessment and Plan: patient complain of right knee today Xray show displaced and comminuted fractures of tibia and fibula. Discussed with orthopedics. recommend podiatry consultation (2) Displaced fracture of proximal end of left humerus Current Visit: Yes Status: Acute Assessment and Plan: Cause of fracture currently unknown as patient denies fall post operative day 3 for revision of humeral component and open reduction and internal fixation of humerus fracture continue PT/OT awaiting placement to skilled rehab (3) Sepsis Current Visit: Yes Status: Acute Assessment and Plan: Sepsis likely due to MRSA pneumonia Chex x-ray showed small bilateral pleural effusions with bibasilar airspace disease that could represent atelectasis or pneumonia left greater than right WBC cimproved today 15.2 clinically Stable. No fever or chills reported. Wound cultures from surgery are negative. Blood cultures are also negative. Nasal swab for MRSA was positive Continue Levaquin day 6 and vancomycin day 4 of total 7 days course for both (4) Tachycardia Current Visit: Yes Status: Acute Assessment and Plan: resolved (5) Dyspnea Current Visit: Yes Status: Acute (6) Decreased urine output Current Visit: Yes Status: Acute Assessment and Plan: Patient has multiple [facility] and able to got 275 ml encourged to increase oral intake (7) Anemia Current Visit: Yes Status: Acute (8) Morbid obesity with BMI of 40.0-44.9, adult Current Visit: No Status: Chronic (9) Status post reverse total shoulder replacement Current Visit: No Status: Acute DVT Prophylaxis: SCDs - Time Spent with Patient Total time spent is greater than 50% in coordination of care (as documented) at patient's floor/unit and/or counseling patient: Internal Medicine: Result - Labs CBC & Chem 7: 04/23/19 02:45 04/23/19 02:45 Labs: Short CBC 04/23/19 Range/Units 02:45 WBC 15.3 H (4.3-11.1) K/mcL Hgb 9.3 L (11.5-15.4) g/dL Hct 29.8 L (35.3-44.9) % Plt Count 308 (140-400) K/mcL Neutrophils # 12.9 H (1.6-8.9) K/mcL BMP 04/23/19 02:45 Sodium 136 Potassium 3.9 Chloride 101 Carbon Dioxide 26 BUN 26 H Creatinine 0.54 L Glucose 130 H Calcium 8.6 - ABG Interpretation ABG results: PT/INR, D-dimer PT 13.8 Seconds (9.4-12.1) H 04/17/19 20:42 - Impressions Impressions Knee X-Ray 04/23/19 12:23 IMPRESSION: 1. Mildly displaced and comminuted fracture of the right distal tibia. 2. Mildly displaced angulated fracture of the right distal fibula. 3. No acute osseous abnormality of the right knee. D/ / Brock Ortiz MD / Brock Ortiz MD Interpreting Provider: Brock Ortiz MD Tibia/Fibula X-Ray 04/23/19 12:23 IMPRESSION: 1. Mildly displaced and comminuted fracture of the right distal tibia. 2. Mildly displaced angulated fracture of the right distal fibula. 3. No acute osseous abnormality of the right knee. D/ / Brock Ortiz MD / Brock Ortiz MD Interpreting Provider: Brock Ortiz MD <Britt Mercedes - Last Filed: 04/23/19 15:18> (5) Anemia Qualifiers: Anemia type: unspecified type Qualified Code(s): D64.9 - Anemia, unspecified <Jacek Anderson I - Last Filed: 04/23/19 18:58> (3) Sepsis Qualifiers: Qualified Code(s): A41.9 - Sepsis, unspecified organism; R65.20 - Severe sepsis without septic shock (5) Dyspnea Qualifiers: Qualified Code(s): R06.00 - Dyspnea, unspecified (7) Anemia Qualifiers: Anemia type: unspecified type Qualified Code(s): D64.9 - Anemia, unspecified (9) Status post reverse total shoulder replacement Qualifiers: Laterality: left Qualified Code(s): Z96.612 - Presence of left artificial shoulder joint
[2019-04-23] MEDS ORDERED: *HR* Promethazine 25 MG/ML VIAL IVP PRN (21:48)
[2019-04-23] MEDS ORDERED: *HR* Promethazine 25 MG/ML VIAL IVP ONE (21:51)
[2019-04-23] MEDS: Lactobacillus 1 EACH CAP.SPRINK PO SCH (23:10)
[2019-04-24] MEDS: Insulin LISPRO 300 UNITS/3 ML VIAL SQ SCH ×4 (00:09→21:12)
[2019-04-24] MEDS: *HR* Enoxaparin 40 MG/0.4 ML SYRINGE SQ SCH (06:10)
[2019-04-24 07:14] LABS: Hematocrit 30.5 % (35.3-44.9); Hemoglobin 9.7 g/dL (11.5-15.4); Mean Corpuscular HGB Conc 31.8 g/dL (31.6-35.5); Mean Corpuscular Hemoglobin 27.5 pg (28.0-33.3); Mean Corpuscular Volume 86.4 fL (83.0-100.0); Mean Platelet Volume 10.6 fL (9.4-12.4); Platelet Count 342 K/mcL (140-400); Red Blood Count 3.53 M/mcL (3.82-4.97); Red Cell Distribution Width 15.4 % (11.5-14.5); White Blood Count 10.2 K/mcL (4.3-11.1)
[2019-04-24] MEDS: Lactobacillus 1 EACH CAP.SPRINK PO SCH ×2 (07:22→21:11)
[2019-04-24 07:28] LABS: BUN/Creatinine Ratio 50 (6-26); Blood Urea Nitrogen 28 mg/dL (8-23); Calcium 9.3 mg/dL (8.6-10.3); Carbon Dioxide 28 mEq/L (23-29); Chloride 103 mEq/L (98-107); Glucose 130 mg/dL (70-105); Osmolality,Calculated 295 (280-300); Potassium 4.5 mEq/L (3.5-5.1); Sodium 139 mEq/L (136-145); eGFR For African Americans > 60 (> 60); eGFR For Non-African Americans > 60 (> 60)
--- NOTE | 2019-04-24 07:45 | Podiatry Consult Note ---
Date of Encounter: 04/24/19 Time of Encounter: 07:43 Assessment and Plan (1) Fracture of right tibia and fibula Current visit: Yes Status: Acute 1. Patient evaluated and treated. Previous Xrays and CT reviewed with patient which shows a distal tibia fracture with articular involvement and a midshaft fibula fracture. Given the displacement and concern for ankle instability with the given fracture pattern, ORIF is warranted. Risks, benefits, and expected post operative course reviewed with patient. Risks include but are not limited to: Infection, non healing wound, chronic pain, swelling, nerve/tendon/vascular injury, heart complications, blood clots, non union, malunion, hardware failure, arthritis, need for further surgery, loss of limb, loss of life. Surgical consent signed by patient. No guarantees were made regarding outcome of the procedure. Continue NWB right lower extremity. Rest and elevation recommended. Posterior splint with GIGI wrap applied. 2. Patient scheduled for OR today as an add-on case. Continue NPO today, has been NPO since midnight. Qualifiers: Encounter type: initial encounter Fracture type: closed Qualified Code(s): S82.201A - Unspecified fracture of shaft of right tibia, initial encounter for closed fracture; S82.401A - Unspecified fracture of shaft of right fibula, initial encounter for closed fracture History of Present Illness Chief complaint: right ankle fracture HPI: Ms. Topete is a 78 year old female who is admitted s/p ORIF left humerus fracture and reverse TSR by Dr. Lindsey on 04/20/2019. Podiatry was consulted to evaluate a right ankle injury. Patient and her daughter report that the believe the injury occurred over 1 week ago due to weakness in her legs but no Xrays were taken as she had a suspected UTI that was being treated. Pain never improved, therefore XRays and CT scan were ordered yesterday showing a minimally displaced pilon fracture and fibula fracture. A posterior splint was applied. She has been NWB since the initial injury, per her report. Past Med Surg Social Fam HX - Past Medical History Medical history: cancer (Face & Cervical/Uterine), other Additional medical history: SKIN CANCER OF FACE. Cervical/Uterine cancer Psychiatric history: no psych history - Past Surgical History Surgical History: hip replacement, hysterectomy, orthopedic, other (Left shoulder) Additional surgical history: LEFT KNEE/LEFT HIP SX. cervical CA. left shoulder - Social History Smoking Status: Never smoker Smokeless Tobacco Status: No Alcohol use: none Drug use: none - Family History Father Race: Family Member Ethnicity: Non- Twin of Family Member: Yes, Fraternal Living Status: Age at : 57 Cause of : COPD Hx Family Cardiac Disorders: Yes (SC, CAD) Hx Family Respiratory Disorders: Yes (COPD) Mother Race: Twin of Family Member: Yes, Fraternal Living Status: Age at : 58 Cause of : Metastatic cancer Hx Family Cancer: Yes (Renal/Metastatic) Hx Family Endocrine Disorder: Yes (DM) Brother Race: Family Member Ethnicity: Non- Living Status: Age at : 60 Cause of : DM complications Hx Family Endocrine Disorder: Yes (DM) Sister Race: Family Member Ethnicity: Non- Living Status: Age at : 35 Cause of : Massive SC Hx Family Cardiac Disorders: Yes (SC @ 35 yo) Grandmother Race: Family Member Ethnicity: Non- Living Status: Cause of : DM complications Hx Family Endocrine Disorder: Yes (DM) Medications and Allergies Cholecalciferol (D-3) [Vitamin D] 2,000 unit PO DAILY tablet 04/17/19 [Rx] Docusate [Colace] 100 mg PO BID 30 Days #60 capsule 04/23/19 [Rx] Lactobacillus [Culturelle] 1 each PO DAILY #10 cap.sprink 04/23/19 [Rx] Levofloxacin [Levaquin] 750 mg PO DAILY 2 Days #2 tablet 04/23/19 [Rx] Linezolid 600 mg PO BID 3 Days #6 tablet 04/23/19 [Rx] OxyCODONE/APAP 5/325 [Percocet 5/325 MG] 1 each PO Q4HR PRN 30 Days #120 tablet 04/23/19 [Rx] Sennosides [Senna] 17.6 mg PO HS 10 Days #30 mls 04/23/19 [Rx] Allergy/AdvReac Type Severity Reaction Status Date / Time Amoxicillin Allergy Hives Verified 04/12/19 08:05 Penicillins Allergy Hives Verified 04/12/19 08:05 All Systems Reviewed: The remainder of the systems were reviewed and are negative Physical Exam - Constitutional Vitals: Temp Pulse Resp BP Pulse Ox 98.3 F 101 20 122/76 93 04/24/19 04:35 04/24/19 04:35 04/24/19 04:35 04/24/19 04:35 04/24/19 04:35 Exam: Alert, oriented x3, moderate distress Lower Extremity Exam Vascular: DP and PT palpable bilateral. Capillary refill less than 3 seconds to all digits. Skin temperature normal. Pedal hair diminished. Mild edema right ankle. Dermatology: No open wounds or fracture blisters. Musculoskeletal: No pain with compression of calf. Able to actively move all toes on right. Pain at fibula and distal tibia. ROM exam at ankle deferred due to known fracture. Neuro: Sensations intact to light touch bilateral lower extremity. Results - Labs Result Diagrams: 04/24/19 06:53 04/24/19 06:53 Labs: Abnormal lab results WBC 15.3 K/mcL (4.3-11.1) H 04/23/19 02:45 RBC 3.53 M/mcL (3.82-4.97) L 04/24/19 06:53 Hgb 9.7 g/dL (11.5-15.4) L 04/24/19 06:53 Hct 30.5 % (35.3-44.9) L 04/24/19 06:53 MCH 27.5 pg (28.0-33.3) L 04/24/19 06:53 MCHC 31.2 g/dL (31.6-35.5) L 04/23/19 02:45 RDW 15.4 % (11.5-14.5) H 04/24/19 06:53 Neutrophils # 12.9 K/mcL (1.6-8.9) H 04/23/19 02:45 PT 13.8 Seconds (9.4-12.1) H 04/17/19 20:42 Sodium 135 mEq/L (136-145) L 04/21/19 03:03 Chloride 97 mEq/L (98-107) L 04/20/19 05:12 Carbon Dioxide 31 mEq/L (23-29) H 04/20/19 05:12 BUN 28 mg/dL (8-23) H 04/24/19 06:53 Creatinine 0.56 mg/dL (0.60-1.20) L 04/24/19 06:53 BUN/Creatinine Ratio 50 (6-26) H 04/24/19 06:53 Glucose 130 mg/dL (70-105) H 04/24/19 06:53 POC Glucose 122 mg/dL (70-99) H 04/23/19 22:14 Hemoglobin A1c 5.7 % (-5.6) H 04/18/19 01:31 Calcium 8.4 mg/dL (8.6-10.3) L 04/22/19 03:34 Serum Total Protein 5.8 g/dL (6.4-8.9) L 04/17/19 20:42 Albumin 3.0 g/dL (3.5-5.7) L 04/17/19 20:42 LDL Cholesterol, Calc 106 mg/dL (0-99) H 04/18/19 01:31 HDL Cholesterol 27 mg/dL (40-59) L 04/18/19 01:31 Cholesterol/HDL Ratio 6.0 (0-4.9) H 04/18/19 01:31 Ur Specific Gray 1.027 (1.010-1.025) H 04/18/19 01:15 Urine Ketones 15 mg/dL (Negative) H 04/18/19 01:15 Urine Blood Small (Negative) H 04/18/19 01:15 Urine Bilirubin Small (Negative) H 04/18/19 01:15 Ur Leukocyte Esterase Trace (Negative) H 04/18/19 01:15 Urine Microscopic WBC 3-5 per hpf (0-3) H 04/18/19 01:15 Ur Squamous Epith Cells Many per lpf (None-Few) H 04/18/19 01:15 Ur Culture Indicated? YES (NO) A 04/18/19 01:15 Nasal Screen MRSA (PCR) DETECTED (Not Detect) A 04/19/19 13:13 Vancomycin Trough 12 mcg/mL (5-10) H 04/22/19 10:40 H & H 04/24/19 Range/Units 06:53 Hgb 9.7 L (11.5-15.4) g/dL Hct 30.5 L (35.3-44.9) % All other labs normal. Consult Discharge Plan - Plan Referrals: NONE,PCP [Primary Care Provider] - Prescriptions: Docusate [Colace] 100 mg PO BID 30 Days #60 capsule Lactobacillus [Culturelle] 1 each PO DAILY #10 cap.sprink Levofloxacin [Levaquin] 750 mg PO DAILY 2 Days #2 tablet Linezolid 600 mg PO BID 3 Days #6 tablet OxyCODONE/APAP 5/325 [Percocet 5/325 MG] 1 each PO Q4HR PRN 30 Days #120 tablet PRN Reason: pain Sennosides [Senna] 17.6 mg PO HS 10 Days #30 mls
[2019-04-24 07:53] LABS: Eosinophils # 0.2 K/mcL (0.0-0.6); Neutrophils # 7.8 K/mcL (1.6-8.9); Platelet Estimate Normal (Normal)
--- NOTE | 2019-04-24 08:07 | Anesthesia Evaluation PreOp ---
Date of Encounter: 04/24/19 Time of Encounter: 11:07 - Past History Planned Operation: ORIF ankle Cardiac History: Denies any Significant Hx Pulmonary History: Denies Any Significant HX PATIENT REGISTRATION MANAGER History: Denies Any Significant HX Other Medical History: Diabetes Type II, GERD (Hiatal hernia), Other (history of cervical cancer) Anesthesia History: No Prior Anesthetic Complications, Past Anesthesia (hyst, left humeral shaft fx 05/05) : No Alcohol Use: none Drug use: none Medications and Allergies Cholecalciferol (D-3) [Vitamin D] 2,000 unit PO DAILY tablet 04/17/19 [Rx] Docusate [Colace] 100 mg PO BID 30 Days #60 capsule 04/23/19 [Rx] Lactobacillus [Culturelle] 1 each PO DAILY #10 cap.sprink 04/23/19 [Rx] Levofloxacin [Levaquin] 750 mg PO DAILY 2 Days #2 tablet 04/23/19 [Rx] Linezolid 600 mg PO BID 3 Days #6 tablet 04/23/19 [Rx] OxyCODONE/APAP 5/325 [Percocet 5/325 MG] 1 each PO Q4HR PRN 30 Days #120 tablet 04/23/19 [Rx] Sennosides [Senna] 17.6 mg PO HS 10 Days #30 mls 04/23/19 [Rx] Allergy/AdvReac Type Severity Reaction Status Date / Time Amoxicillin Allergy Hives Verified 04/12/19 08:05 Penicillins Allergy Hives Verified 04/12/19 08:05 - Meds/Allergy Pre-op Review Medications Reviewed: Yes Allergies Reviewed: Yes Beta Blockers on Current Med List: No Anesthesia Results - Labs 04/24/19 06:53 04/24/19 06:53 - Imaging EKG: report reviewed (RBBB) Additional studies: Perfusion imaging was negative for ischemia or infarct. Pharmacologic stress ECG is negative for ischemia at level of heart rate achieved. Gated EF > 70%. Anesthesia Exam - PATIENT REGISTRATION MANAGER LOC: Oriented, Confused PATIENT REGISTRATION MANAGER Motor: Normal RUE, Normal LUE, Normal RLE, Normal LLE, Normal Face PATIENT REGISTRATION MANAGER Sensory: Normal: RUE, LUE, RLE, LLE, Face - Cardiac Rhythm: Regular Murmur: None JVD: No - Pulmonary Breath Sounds: bilateral Clear Respiratory Effort: Symmetrical Anesthesia Assess/Plan ASA Score: 2 Level of consciousness: Cooperative Anesthetic Plan: General, Regional Nerve Block Regional Nerve Block Plan: Adductor canal, Popliteal Monitoring Plan: Standard Monitors Recovery Plan: PACU
--- NOTE | 2019-04-24 08:24 | Internal Med Progress Note ---
<MagoBritt - Last Filed: 04/24/19 10:39> Hospitalist Progress Note - Encounter Date of Encounter: 04/24/19 Time of Encounter: 08:40 - Exam Vitals: Temp Pulse Resp BP Pulse Ox 98.7 F 96 18 129/67 94 04/24/19 06:40 04/24/19 06:40 04/24/19 06:40 04/24/19 06:40 04/24/19 06:40 - Assessment and Plan (1) Displaced fracture of proximal end of left humerus Current Visit: Yes Status: Acute (2) Diabetes mellitus type 2 in obese Current Visit: Yes Status: Chronic (3) Generalized weakness Current Visit: Yes Status: Inactive (4) Failure to thrive in adult Current Visit: Yes Status: Acute (5) Anemia Current Visit: Yes Status: Acute (6) DVT prophylaxis Current Visit: Yes Status: Acute - Time Spent with Patient Total time spent is greater than 50% in coordination of care (as documented) at patient's floor/unit and/or counseling patient: Internal Medicine: Result - Labs CBC & Chem 7: 04/24/19 06:53 04/24/19 06:53 Labs: Short CBC 04/24/19 Range/Units 06:53 WBC 10.2 (4.3-11.1) K/mcL Hgb 9.7 L (11.5-15.4) g/dL Hct 30.5 L (35.3-44.9) % Plt Count 342 (140-400) K/mcL Neutrophils # 7.8 (1.6-8.9) K/mcL BMP 04/24/19 06:53 Sodium 139 Potassium 4.5 Chloride 103 Carbon Dioxide 28 BUN 28 H Creatinine 0.56 L Glucose 130 H Calcium 9.3 - ABG Interpretation ABG results: PT/INR, D-dimer PT 13.8 Seconds (9.4-12.1) H 04/17/19 20:42 - Impressions Impressions Knee X-Ray 04/23/19 12:23 IMPRESSION: 1. Mildly displaced and comminuted fracture of the right distal tibia. 2. Mildly displaced angulated fracture of the right distal fibula. 3. No acute osseous abnormality of the right knee. D/ / Brock Ortiz MD / Brock Ortiz MD Interpreting Provider: Brock Ortiz MD Tibia/Fibula X-Ray 04/23/19 12:23 IMPRESSION: 1. Mildly displaced and comminuted fracture of the right distal tibia. 2. Mildly displaced angulated fracture of the right distal fibula. 3. No acute osseous abnormality of the right knee. D/ / Brock Ortiz MD / Brock Ortiz MD Interpreting Provider: Brock Ortiz MD Ankle CT 04/23/19 15:20 IMPRESSION: 1. Acute mildly comminuted and displaced oblique fracture of the distal tibial metaphysis. No involvement of the tibial plafond. 2. Acute mildly displaced transverse fracture of the distal fibular diaphysis. D/ / Ben Ryan MD / Ben Ryan MD Interpreting Provider: Ben Ryan MD Shoulder X-Ray 04/23/19 18:32 IMPRESSION: Sequelae of reverse left shoulder arthroplasty without adverse features evident. D/ / 04/23/2019 20:18:05 Ramone Mondragon MD / imer Interpreting Provider: Ramone Mondragon MD Consult Discharge Plan - Plan Referrals: NONE,PCP [Primary Care Provider] - Prescriptions: Docusate [Colace] 100 mg PO BID 30 Days #60 capsule Lactobacillus [Culturelle] 1 each PO DAILY #10 cap.sprink Levofloxacin [Levaquin] 750 mg PO DAILY 2 Days #2 tablet Linezolid 600 mg PO BID 3 Days #6 tablet OxyCODONE/APAP 5/325 [Percocet 5/325 MG] 1 each PO Q4HR PRN 30 Days #120 tablet PRN Reason: pain Sennosides [Senna] 17.6 mg PO HS 10 Days #30 mls - Attending Attestation I saw evaluated and examined this patient and reviewed objective data including labs and my medical decision-making was reviewed with the Resident Physician, Jacek Anderson. I agree with the documented findings, disposition and treatment driss n as described except to any changes set forth below. We independently had [id number] contact with the patient. Patient to undergo surgery today for a right lower [id number] fractures. She also complains of some pain in her left leg. Will obtain x-ray of this leg also. Continue supportive care. Pain control. WBC count has trended down. Will transition to oral antibiotics tomorrow. Hemoglobin levels remain stable. Patient continues to have urinary retention and so Arana catheter was placed last night. Will arrange for outpatient follow-up with urology. <Jacek Anderson I - Last Filed: 04/24/19 13:17> Hospitalist Progress Note - Encounter Date of Encounter: 04/24/19 - Subjective Interval History: Today patient is seen and examined . She feels tired and weak . she had another surgery done today for her right tibia and fibula fracture . patient had no bowel movement with very poor oral intake . No fever No nausea or vomiting . complaining of left knee and leg pain Will obtain x-ray of this leg also. - Exam Vitals: Temp Pulse Resp BP Pulse Ox 98.7 F 96 18 129/67 94 04/24/19 06:40 04/24/19 06:40 04/24/19 06:40 04/24/19 06:40 04/24/19 06:40 Exam: General: AAO 3, no acute distress, answers questions appropriately Head: normocephalic, atraumatic Eyes: DONNA, no icterus Cardio: RRR, no mumurs, rubs, or gallops Respiratory: CTAB, no wheezing, rhonchi, rales Abd: normal bowel sounds, no guarding or rigidity Extremities: Left upper extremity wrapped with drain in place that is draining serosanguineous fluid. 1+ pitting edema bilateral lower extremities Skin: warm, dry, intact - Assessment and Plan (1) Fracture of right tibia and fibula Current Visit: Yes Status: Acute Assessment and Plan: distal tibia fracture with articular involvement and a midshaft fibula fracture underwent ORIF She is stable postoperatively, poor oral intake , vitals stable (2) Displaced fracture of proximal end of left humerus Current Visit: Yes Status: Acute Assessment and Plan: Cause of fracture currently unknown as patient denies fall post operative day 4 for revision of humeral component and open reduction and internal fixation of humerus fracture continue PT/OT awaiting placement to skilled rehab (3) Sepsis Current Visit: Yes Status: Acute Assessment and Plan: Sepsis was likely due to MRSA pneumonia , currently resolved Chex x-ray showed small bilateral pleural effusions with bibasilar airspace disease that could represent atelectasis or pneumonia left greater than right WBC WNL clinically Stable. No fever or chills reported. Wound cultures from surgery are negative. Blood cultures are also negative. Nasal swab for MRSA was positive Continue Levaquin day 6 and vancomycin day 5 of total 7 days course for both will switch to oral tomorrow (4) Tachycardia Current Visit: Yes Status: Acute (5) Dyspnea Current Visit: Yes Status: Acute (6) Decreased urine output Current Visit: Yes Status: Acute Assessment and Plan: patient continue to have urinary retention placed on foly's catheter yesterday . passed 250 ml of urine today (7) Anemia Current Visit: Yes Status: Acute Assessment and Plan: Her hb improved curently 9.7 continue monitoring (8) Morbid obesity with BMI of 40.0-44.9, adult Current Visit: No Status: Chronic (9) Status post reverse total shoulder replacement Current Visit: No Status: Acute - Time Spent with Patient Total time spent is greater than 50% in coordination of care (as documented) at patient's floor/unit and/or counseling patient: Internal Medicine: Result - Labs CBC & Chem 7: 04/24/19 06:53 04/24/19 06:53 Labs: Short CBC 04/24/19 Range/Units 06:53 WBC 10.2 (4.3-11.1) K/mcL Hgb 9.7 L (11.5-15.4) g/dL Hct 30.5 L (35.3-44.9) % Plt Count 342 (140-400) K/mcL Neutrophils # 7.8 (1.6-8.9) K/mcL BMP 04/24/19 06:53 Sodium 139 Potassium 4.5 Chloride 103 Carbon Dioxide 28 BUN 28 H Creatinine 0.56 L Glucose 130 H Calcium 9.3 - ABG Interpretation ABG results: PT/INR, D-dimer PT 13.8 Seconds (9.4-12.1) H 04/17/19 20:42 - Impressions Impressions Knee X-Ray 04/23/19 12:23 IMPRESSION: 1. Mildly displaced and comminuted fracture of the right distal tibia. 2. Mildly displaced angulated fracture of the right distal fibula. 3. No acute osseous abnormality of the right knee. D/ / Brock Ortiz MD / Brock Ortiz MD Interpreting Provider: Brock Ortiz MD Tibia/Fibula X-Ray 04/23/19 12:23 IMPRESSION: 1. Mildly displaced and comminuted fracture of the right distal tibia. 2. Mildly displaced angulated fracture of the right distal fibula. 3. No acute osseous abnormality of the right knee. D/ / Brock Ortiz MD / Brock Ortiz MD Interpreting Provider: Brock Ortiz MD Ankle CT 04/23/19 15:20 IMPRESSION: 1. Acute mildly comminuted and displaced oblique fracture of the distal tibial metaphysis. No involvement of the tibial plafond. 2. Acute mildly displaced transverse fracture of the distal fibular diaphysis. D/ / Ben Ryan MD / Ben Ryan MD Interpreting Provider: Ben Ryan MD Shoulder X-Ray 04/23/19 18:32 IMPRESSION: Sequelae of reverse left shoulder arthroplasty without adverse features evident. D/ / 04/23/2019 20:18:05 Ramone Mondragon MD / imer Interpreting Provider: Ramone Mondragon MD <Britt Mercedes - Last Filed: 04/24/19 10:39> (5) Anemia Qualifiers: Anemia type: unspecified type Qualified Code(s): D64.9 - Anemia, unspecified <MonicaJacek I - Last Filed: 04/24/19 13:17> (1) Fracture of right tibia and fibula Qualifiers: Encounter type: initial encounter Fracture type: closed Qualified Code(s): S82.201A - Unspecified fracture of shaft of right tibia, initial encounter for closed fracture; S82.401A - Unspecified fracture of shaft of right fibula, initial encounter for closed fracture (3) Sepsis Qualifiers: Qualified Code(s): A41.9 - Sepsis, unspecified organism; R65.20 - Severe sepsis without septic shock (5) Dyspnea Qualifiers: Qualified Code(s): R06.00 - Dyspnea, unspecified (7) Anemia Qualifiers: Anemia type: unspecified type Qualified Code(s): D64.9 - Anemia, unspecified (9) Status post reverse total shoulder replacement Qualifiers: Laterality: left Qualified Code(s): Z96.612 - Presence of left artificial shoulder joint
[2019-04-24] MEDS ORDERED: Bisacodyl 10 MG RECTAL SUPPOSITORY RC ONE (09:37)
[2019-04-24] MEDS ORDERED: *HR* FentaNYL (PF) 100 MCG/2 ML VIAL ONE ×2 (11:11→13:16)
[2019-04-24] MEDS ORDERED: Ondansetron 4 MG/2 ML VIAL ONE (11:11)
[2019-04-24] MEDS ORDERED: Dexamethasone 4 MG/ML VIAL ONE ×2 (11:11→11:40)
[2019-04-24] MEDS ORDERED: Ropivacaine/PF 0.5% 30 ML VIAL ONE (11:12)
[2019-04-24] MEDS ORDERED: ROPIVACAINE/PF/NS 0.25% 1 EACH SYRINGE INTRAART ONE (11:12)
[2019-04-24] MEDS ORDERED: *HR* Succinylcholine 200 MG/10 ML VIAL IVP ONE (11:39)
[2019-04-24] MEDS ORDERED: Lidocaine -MPF 2% 2 ML VIAL ONE (11:39)
[2019-04-24] MEDS ORDERED: *HR* Propofol 200 MG/20 ML VIAL IVP ONE (11:39)
[2019-04-24] MEDS: *HR* OxyCODONE Immed Rel 5 MG TABLET PO PRN (15:59)
--- NOTE | 2019-04-24 16:00 | Orthopedic Operative Note ---
Date of procedure: 04/24/19 Pre-op diagnosis: Right distal tibia fracture, right fibula fracture Post-op diagnosis: same Procedure: 04/24/19 16:02 1. Open reduction with internal fixation right tibia and fibula pilon fracture Implants: Synthes 10 hole 1/3 tubular plate Synthes 4 hole medial tibia plate Synthes 4.0mm cannulated screw x3 (1 wasted) Synthes 3.5mm cortical screw x5 Synthes 3.5mm locking screw x7 Synthes 2.7mm cortical screw x4 Complications: None Anesthesia: GETA, regional Surgeon: Bon Pino Was there an senior assistant manager present: No Estimated blood loss (cc): 10 Tourniquet Time (Minutes): 128 Specimen: None Condition: stable Disposition: floor Procedure in Detail: 04/24/19 16:08 INDICATIONS AND CONSENT Ms. Topete is a 78 year old female who was initially evaluated for a right ankle injury while admitted following a left shoulder procedure. She had an apparent fall and sustained an ankle injury. Radiographs and CT indicated a right pilon tibia and fibula fracture with angulation of the distal fragments. Given the radiographic findings, surgical intervention was warranted. The patient elected to proceed with open reduction with internal fixation of the fractures. We discussed the above procedures in detail. This included a discussion on the indications, contraindications, and possible complications including but not limited to: infection, non-healing wound, pain, swelling, bleeding, blood clots, heart complications, nerve injury, tendon injury, vascular injury, loss of limb, loss of life, non-union, malunion, arthritis, hardware failure, and need for fur ther surgery. We also reviewed the expected post operative course, including a discussion on the non-weightbearing status after this procedure. She related understanding of our discussion regarding this surgery. All questions were answered to her satisfaction, and a proper written informed consent was obtained, signed, and placed in the chart. No guarantees were given, stated or implied, as to the outcome of this procedure. PROCEDURE IN DETAIL The patient was seen in the pre-operative holding area by Anesthesia where she was consented for General Anesthesia with regional popliteal fossa and adductor canal block. The regional blocks were performed under ultrasound guidance by Anesthesia in the pre-operative holding area. The patient was then brought back to the operative suite and placed on the operating room table in the supine position. A sign-in was performed. General anesthesia was then initiated per Anesthesia protocol. A well-padded pneumatic right thigh tourniquet was then driss juan daniel. Next, the right lower leg was scrubbed, prepped, and draped in the usual aseptic manner. A [place] Time-Out was performed, and all parties in the room agreed. Next, an Esmarch was used to exsanguinate the right foot. The pneumatic thigh tourniquet was inflated to 300 mmHg. Attention was then directed to the right lateral leg where an approximate 10 cm linear incision was made over fibula shaft fracture. Hematoma and signs of post-traumatic injury were evident. The hematoma was evacuated. The incision was carried down to the level of bone in anatomic layers, paying particular attention to protect and retract all vital neurovascular structures. With the incision down to bone, the fracture site was identified and noted to be a displaced, transverse fibula shaft fracture. A barcenas elevator was used to elevate the periosteum both proximal and distal to the fracture site prior to plate fixation. The wound was flushed with copious amounts of sterile saline. The fracture was reduced and stabilized utilizing point to point clamps to hold the fibula out to length. The fibula was held out to appropriate anatomic length, confirmed and verified under fluoroscopy. Next a 10 hole 1/3 tubular bridge plate was placed laterally for stability across the fracture site which was fixated using one 3.5mm cortical screw and three 3.5mm locking screws proximally, and one 3.5mm cortical screw and two 3.5mm locking screws distally. Stability at the fracture site was noted both clinically and under fluoroscopy with maintenance of reduction and protestant of fibular length. Attention was then directed to the distal tibia fracture which was noted on CT scan to be a comminuted angular fracture proximal to the tibial plafond with a small area of joint involvement medially. After reduction of the fibular fracture, the distal tibia fracture appeared to be well reduced. The distal tibia fracture was then fixated using two 4.0 mm partially threaded cannulated screws placed from anterior to posterior through percutaneous skin incisions as well as a 4 hole medial tibial plate. After adequate reduction of the distal tibia fracture was confirmed under fluoroscopy, the plate was fixated using one 3.5mm cortical screw and two 3.5mm locking screws proximally, and one 3.5mm cortical screw and four 2.7mm locking screws distally. Screws were placed after two small incisions were made at the distal medial malleolus and at the proximal aspect of the plate, each 4cm in length. Of note, the patient had evidence of osteoporosis, therefore rigid plate structure and locking screws were used when possible. Given her history of diabetes and significant distal tibia fracture, it was decided to place a 3.5mm cortical screw to stabilize the syndesmosis through a distal hole in the 1/3 tubular plate of the fibula. Stability at the syndesmosis and the ankle mortise was confirmed under fluoroscopy as the ankle joint was stressed with no widening appreciated at the syndesmosis or medial ankle gutter. The wounds were then flushed with copious amounts of normal sterile saline. Next, deep and subcutaneous tissues were re-approximated using 3-0 Vicryl and 4- 0 Vicryl and the skin was re-approximated under minimal tension using skin ariel. A dry, sterile dressing was then applied, which consisted of: xeroform, 4x4's, Kerlix fluffs, ABDs, and Kerlix roll. The right thigh tourniquet was then deflated, and a proper hyperemic response was noted to the digits on the right foot. Capillary refill time of the toes on the right foot was also noted to be brisk at this time. A well-padded posterior splint with sugar tong was applied with the foot 90 degrees relative to the lower leg. The posterior splint was then secured to the foot and leg using an GIGI bandage. A sign-out was performed. The patient tolerated anesthesia and the procedure well, and was transferred to PAC-U with vital signs stable and vascular status intact to the right lower extremity. Needle and sponge counts were correct X 2 at the end of the case. Dr. Bon Pino was present, scrubbed, and participated in all vital aspects of the procedure. After a brief stay in PAC-U, the patient will be admitted back to the floor for continued monitoring. She will be strict non-weightbearing. She will follow up in the outpatient clinic 1 week after surgery, but will be monitored daily while admitted. 04/24/19 16:08 04/24/19 16:23
[2019-04-24] MEDS ORDERED: D5% in Water 1,000 ML IVC PRN (16:39)
[2019-04-24] MEDS ORDERED: Sennosides 8.6 MG TABLET PO PRN (16:39)
[2019-04-24] MEDS ORDERED: MOM Conc 10 ML UD.LIQ PO PRN (16:39)
[2019-04-24] MEDS ORDERED: *HR* Dextrose 50 % in Water (Syg) 50 ML SYRINGE IVP PRN (16:39)
[2019-04-24] MEDS ORDERED: Dextrose Gel 15 GM/37.5 ML TUBE PO PRN ×2 (16:39)
[2019-04-24] MEDS ORDERED: Naloxone 0.4 MG/ML INJ IVP PRN (16:39)
[2019-04-24] MEDS ORDERED: traMADol 50 MG TABLET PO PRN (16:39)
[2019-04-24] MEDS ORDERED: Ondansetron 4 MG/2 ML VIAL IVP PRN (16:39)
[2019-04-24] MEDS ORDERED: Temazepam 15 MG CAPSULE PO PRN (16:39)
[2019-04-24] MEDS ORDERED: *HR* OxyCODONE/APAP 5/325 TABLET PO PRN (16:39)
[2019-04-24] MEDS ORDERED: hydrALAZINE 10 MG TABLET PO PRN (16:39)
[2019-04-24] MEDS ORDERED: *HR* Promethazine 25 MG/ML VIAL IVP ONE (16:39)
[2019-04-24] MEDS ORDERED: levoFLOXacin 750 MG/150 ML 750 MG/150 ML BAG IVPB SCH (17:00)
[2019-04-24] MEDS: Acetaminophen 325 MG TABLET PO PRN (21:11)
[2019-04-25 01:44] LABS: Basophils % 0.4 %; Hemoglobin 8.6 g/dL (11.5-15.4); Immature Granulocytes % 3.2 % (0-4); Lymphocytes # 0.7 K/mcL (0.6-4.6); Lymphocytes % 6.8 %; Mean Corpuscular HGB Conc 30.7 g/dL (31.6-35.5); Mean Corpuscular Volume 88.1 fL (83.0-100.0); Mean Platelet Volume 10.4 fL (9.4-12.4); Monocytes # 0.7 K/mcL (0.0-1.3); Monocytes % 6.4 %; Neutrophils # 8.8 K/mcL (1.6-8.9); Platelet Count 323 K/mcL (140-400); Red Blood Count 3.18 M/mcL (3.82-4.97); Red Cell Distribution Width 15.2 % (11.5-14.5); Segmented Neutrophils % 83.2 %; White Blood Count 10.6 K/mcL (4.3-11.1)
[2019-04-25 02:02] LABS: BUN/Creatinine Ratio 46 (6-26); Blood Urea Nitrogen 26 mg/dL (8-23); Calcium 8.7 mg/dL (8.6-10.3); Carbon Dioxide 28 mEq/L (23-29); Chloride 102 mEq/L (98-107); Glucose 114 mg/dL (70-105); Osmolality,Calculated 292 (280-300); Potassium 4.4 mEq/L (3.5-5.1); Sodium 138 mEq/L (136-145); eGFR For African Americans > 60 (> 60); eGFR For Non-African Americans > 60 (> 60)
[2019-04-25 03:05] LABS: Platelet Estimate Normal (Normal)
--- NOTE | 2019-04-25 06:53 | Orthopedics Progress Note ---
Date of Encounter: 04/25/19 Time of Encounter: 06:52 Subjective Principal diagnosis: Distal humerus fracture, status post total shoulder Interval history: Patient was seen this morning doing well without complaints. X-rays reviewed of left shoulder abnormalities, patient does was reduction internal fixation of right distal tibia. Afebrile vital signs stable. Operative extremity: Neurovascularly intact Dressing clean dry and intact Calves nontender Assessment and plan: Continue with postoperative care . Objective Vital signs: Vital Signs Temp Pulse Resp BP Pulse Ox 04/25/19 06:37 99.7 F H 92 18 128/71 94 04/25/19 05:36 98.1 F 90 20 114/70 94 04/24/19 22:20 97.8 F 86 20 120/70 93 04/24/19 19:04 97.4 F L 90 20 120/77 93 04/24/19 18:00 97.7 F 88 18 105/61 95 04/24/19 16:30 98.1 F 87 18 114/71 95 04/24/19 16:21 97.4 F L 89 20 134/69 95 04/24/19 16:12 90 20 147/65 95 04/24/19 16:02 90 20 143/78 94 04/24/19 15:52 98.1 F 93 27 167/89 96 04/24/19 11:39 98.1 F 95 18 121/62 96 Intake and Output 04/24/19 04/24/19 04/25/19 15:59 23:59 07:59 Intake Total 250 / 550 0 / 0 Output Total 10 / 460 200 / 460 250 / 250 Balance - 50 / 90 -250 / -250 Intake: Oral 250 / 550 0 / 0 Output: Urine 200 / 200 Estimated Blood Loss Catheter 250 / 250 Other: Weight 96.7 kg Blood Glucose* 120 Patient Weight 04/25/19 23:59 Weight 96.7 kg - Labs CBC & BMP: 04/25/19 00:53 04/25/19 00:53 Labs: Abnormal lab results WBC 15.3 K/mcL (4.3-11.1) H 04/23/19 02:45 RBC 3.18 M/mcL (3.82-4.97) L 04/25/19 00:53 Hgb 8.6 g/dL (11.5-15.4) L 04/25/19 00:53 Hct 28.0 % (35.3-44.9) L 04/25/19 00:53 MCH 27.0 pg (28.0-33.3) L 04/25/19 00:53 MCHC 30.7 g/dL (31.6-35.5) L 04/25/19 00:53 RDW 15.2 % (11.5-14.5) H 04/25/19 00:53 Band Neutrophils % 6.0 % (0-4) H 04/24/19 06:53 Myelocytes % 2.0 % (0) H 04/24/19 06:53 Neutrophils # 12.9 K/mcL (1.6-8.9) H 04/23/19 02:45 PT 13.8 Seconds (9.4-12.1) H 04/17/19 20:42 Sodium 135 mEq/L (136-145) L 04/21/19 03:03 Chloride 97 mEq/L (98-107) L 04/20/19 05:12 Carbon Dioxide 31 mEq/L (23-29) H 04/20/19 05:12 BUN 26 mg/dL (8-23) H 04/25/19 00:53 Creatinine 0.57 mg/dL (0.60-1.20) L 04/25/19 00:53 BUN/Creatinine Ratio 46 (6-26) H 04/25/19 00:53 Glucose 114 mg/dL (70-105) H 04/25/19 00:53 POC Glucose 120 mg/dL (70-99) H 04/24/19 20:47 Hemoglobin A1c 5.7 % (-5.6) H 04/18/19 01:31 Calcium 8.4 mg/dL (8.6-10.3) L 04/22/19 03:34 Serum Total Protein 5.8 g/dL (6.4-8.9) L 04/17/19 20:42 Albumin 3.0 g/dL (3.5-5.7) L 04/17/19 20:42 LDL Cholesterol, Calc 106 mg/dL (0-99) H 04/18/19 01:31 HDL Cholesterol 27 mg/dL (40-59) L 04/18/19 01:31 Cholesterol/HDL Ratio 6.0 (0-4.9) H 04/18/19 01:31 Ur Specific [place] 1.027 (1.010-1.025) H 04/18/19 01:15 Urine Ketones 15 mg/dL (Negative) H 04/18/19 01:15 Urine Blood Small (Negative) H 04/18/19 01:15 Urine Bilirubin Small (Negative) H 04/18/19 01:15 Ur Leukocyte Esterase Trace (Negative) H 04/18/19 01:15 Urine Microscopic WBC 3-5 per hpf (0-3) H 04/18/19 01:15 Ur Squamous Epith Cells Many per lpf (None-Few) H 04/18/19 01:15 Ur Culture Indicated? YES (NO) A 04/18/19 01:15 Nasal Screen MRSA (PCR) DETECTED (Not Detect) A 04/19/19 13:13 Vancomycin Trough 16 mcg/mL (5-10) H 04/24/19 10:05 Consult Discharge Plan - Plan Referrals: NONE,PCP [Primary Care Provider] - Prescriptions: Docusate [Colace] 100 mg PO BID 30 Days #60 capsule Lactobacillus [Culturelle] 1 each PO DAILY #10 cap.sprink Levofloxacin [Levaquin] 750 mg PO DAILY 2 Days #2 tablet Linezolid 600 mg PO BID 3 Days #6 tablet OxyCODONE/APAP 5/325 [Percocet 5/325 MG] 1 each PO Q4HR PRN 30 Days #120 tablet PRN Reason: pain Sennosides [Senna] 17.6 mg PO HS 10 Days #30 mls
[2019-04-25] MEDS: Insulin LISPRO 300 UNITS/3 ML VIAL SQ SCH ×4 (07:22→21:34)
[2019-04-25] MEDS: *HR* Enoxaparin 40 MG/0.4 ML SYRINGE SQ SCH (07:54)
[2019-04-25] MEDS: Lactobacillus 1 EACH CAP.SPRINK PO SCH ×2 (08:20→21:36)
--- NOTE | 2019-04-25 08:25 | Internal Med Progress Note ---
<JefferyterrenceBritt - Last Filed: 04/25/19 13:30> Hospitalist Progress Note - Encounter Date of Encounter: 04/25/19 Time of Encounter: 09:10 - Exam Vitals: Temp Pulse Resp BP Pulse Ox 98.0 F 94 16 105/61 94 04/25/19 11:08 04/25/19 11:08 04/25/19 11:08 04/25/19 11:08 04/25/19 11:08 - Assessment and Plan (1) Displaced fracture of proximal end of left humerus Current Visit: Yes Status: Acute (2) Diabetes mellitus type 2 in obese Current Visit: Yes Status: Chronic (3) Generalized weakness Current Visit: Yes Status: Inactive (4) Failure to thrive in adult Current Visit: Yes Status: Acute (5) Anemia Current Visit: Yes Status: Acute (6) DVT prophylaxis Current Visit: Yes Status: Acute - Time Spent with Patient Total time spent is greater than 50% in coordination of care (as documented) at patient's floor/unit and/or counseling patient: Internal Medicine: Result - Labs CBC & Chem 7: 04/25/19 00:53 04/25/19 00:53 Labs: Short CBC 04/25/19 Range/Units 00:53 WBC 10.6 (4.3-11.1) K/mcL Hgb 8.6 L (11.5-15.4) g/dL Hct 28.0 L (35.3-44.9) % Plt Count 323 (140-400) K/mcL Neutrophils # 8.8 (1.6-8.9) K/mcL BMP 04/25/19 00:53 Sodium 138 Potassium 4.4 Chloride 102 Carbon Dioxide 28 BUN 26 H Creatinine 0.57 L Glucose 114 H Calcium 8.7 - ABG Interpretation ABG results: PT/INR, D-dimer PT 13.8 Seconds (9.4-12.1) H 04/17/19 20:42 - Impressions Impressions Ankle X-Ray 04/24/19 00:00 IMPRESSION: Intraprocedural fluoroscopic spot images as above. See separate procedure report for more information. D/ / Obdulio Pompa MD / Obdulio Pompa MD Interpreting Provider: Obdulio Pompa MD Fluoroscopy 04/24/19 00:00 IMPRESSION: Intraprocedural fluoroscopic spot images as above. See separate procedure report for more information. D/ / Obdulio Pompa MD / Obdulio Pompa MD Interpreting Provider: Obdulio Pompa MD Consult Discharge Plan - Plan Referrals: NONE,PCP [Primary Care Provider] - Prescriptions: Docusate [Colace] 100 mg PO BID 30 Days #60 capsule Lactobacillus [Culturelle] 1 each PO DAILY #10 cap.sprink Levofloxacin [Levaquin] 750 mg PO DAILY 2 Days #2 tablet Linezolid 600 mg PO BID 3 Days #6 tablet OxyCODONE/APAP 5/325 [Percocet 5/325 MG] 1 each PO Q4HR PRN 30 Days #120 tablet PRN Reason: pain Sennosides [Senna] 17.6 mg PO HS 10 Days #30 mls - Attending Attestation I saw evaluated and examined this patient and reviewed objective data including labs and my medical decision-making was reviewed with the Resident Physician, Jacek Anderson. I agree with the documented findings, disposition and treatment plan as described except to any changes set forth below. We independently had f judith-to-face contact with the patient. Patient underwent surgery yesterday for Right Tib/ fib fracture with open reduction internal fixation. Doing well postoperatively. Pain in right lower extremity well controlled. No fever or chills reported overnight. No dizziness or lightheadedness. She did complain of some difficulty swallowing. We will consult speech therapy. Continue supportive care. Continue supportive care with pain control. DVT prophylaxis with lovenox. Switch Levaquin to oral dose. Continue Vancomycin IV for 2 more days. <Jacek Anderson I - Last Filed: 04/25/19 18:08> Hospitalist Progress Note - Encounter Date of Encounter: 04/25/19 - Subjective Interval History: Today patient is seen and examined . she state she has pain in her right thigh . poor oral intake , no bowel movement , denies fever or chills , No chest pain or SOB .pain is under control patient continue to have urinary retention and so Arana catheter was palced - Exam Vitals: Temp Pulse Resp BP Pulse Ox 99.7 F H 92 18 128/71 94 04/25/19 06:37 04/25/19 06:37 04/25/19 06:37 04/25/19 06:37 04/25/19 06:37 Exam: General: AAO 3, no acute distress, answers questions appropriately Head: normocephalic, atraumatic Eyes: DONNA, no icterus Cardio: RRR, no mumurs, rubs, or gallops Respiratory: CTAB, no wheezing, rhonchi, rales Abd: normal bowel sounds, no guarding or rigidity Extremities: Left upper extremity wrapped with drain in place that is draining serosanguineous fluid. 1+ pitting edema bilateral lower extremities Skin: warm, dry, intact - Assessment and Plan (1) Fracture of right tibia and fibula Current Visit: Yes Status: Acute Assessment and Plan: distal tibia fracture with articular involvement and a midshaft fibula fracture underwent ORIF , post op day 2 She is stable postoperatively, poor oral intake , vitals stable , WBC WNL (2) Displaced fracture of proximal end of left humerus Current Visit: Yes Status: Acute Assessment and Plan: Cause of fracture currently unknown as patient denies fall post operative day 5 for revision of humeral component and open reduction and internal fixation of humerus fracture continue PT/OT (3) Sepsis Current Visit: Yes Status: Acute Assessment and Plan: Sepsis was likely due to MRSA pneumonia , currently resolved Chex x-ray showed small bilateral pleural effusions with bibasilar airspace disease that could represent atelectasis or pneumonia left greater than right WBC WNL clinically Stable. No fever or chills reported. Wound cultures from surgery are negative. Blood cultures are also negative. Nasal swab for MRSA was positive Continue Levaquin day 6 and vancomycin day 5 of total 7 days course for both will switch to oral tomorrow (4) Tachycardia Current Visit: Yes Status: Acute Assessment and Plan: current HR 92 continue monitoring (5) Decreased urine output Current Visit: Yes Status: Acute Assessment and Plan: patient continue to have urinary retention placed on foly's catheter yesterday . passed 250 ml of urine today (6) Anemia Current Visit: Yes Status: Acute Assessment and Plan: Her hb improved curently 8.6 could be from blood loss in surgery continue monitoring (7) Morbid obesity with BMI of 40.0-44.9, adult Current Visit: No Status: Chronic (8) Status post reverse total shoulder replacement Current Visit: No Status: Acute - Time Spent with Patient Total time spent is greater than 50% in coordination of care (as documented) at patient's floor/unit and/or counseling patient: Internal Medicine: Result - Labs CBC & Chem 7: 04/25/19 00:53 04/25/19 00:53 Labs: Short CBC 04/25/19 Range/Units 00:53 WBC 10.6 (4.3-11.1) K/mcL Hgb 8.6 L (11.5-15.4) g/dL Hct 28.0 L (35.3-44.9) % Plt Count 323 (140-400) K/mcL Neutrophils # 8.8 (1.6-8.9) K/mcL BMP 04/25/19 00:53 Sodium 138 Potassium 4.4 Chloride 102 Carbon Dioxide 28 BUN 26 H Creatinine 0.57 L Glucose 114 H Calcium 8.7 - ABG Interpretation ABG results: PT/INR, D-dimer PT 13.8 Seconds (9.4-12.1) H 04/17/19 20:42 - Impressions Impressions Ankle X-Ray 04/24/19 00:00 IMPRESSION: Intraprocedural fluoroscopic spot images as above. See separate procedure report for more information. D/ / Obdulio Pompa MD / Obdulio Pompa MD Interpreting Provider: Obdulio Pompa MD Fluoroscopy 04/24/19 00:00 IMPRESSION: Intraprocedural fluoroscopic spot images as above. See separate procedure report for more information. D/ / Obdulio Pompa MD / Obdulio Pompa MD Interpreting Provider: Obdulio Pompa MD Tibia/Fibula X-Ray 04/24/19 09:27 IMPRESSION: No acute fracture. D/ / Andrea Pablo MD / Andrea Pablo MD Interpreting Provider: Andrea Pablo MD <Britt Mercedes - Last Filed: 04/25/19 13:30> (5) Anemia Qualifiers: Anemia type: unspecified type Qualified Code(s): D64.9 - Anemia, unspecified <Jacek Anderson I - Last Filed: 04/25/19 18:08> (1) Fracture of right tibia and fibula Qualifiers: Encounter type: initial encounter Fracture type: closed Qualified Code(s): S82.201A - Unspecified fracture of shaft of right tibia, initial encounter for closed fracture; S82.401A - Unspecified fracture of shaft of right fibula, initial encounter for closed fracture (3) Sepsis Qualifiers: Qualified Code(s): A41.9 - Sepsis, unspecified organism; R65.20 - Severe sepsis without septic shock (6) Anemia Qualifiers: Anemia type: unspecified type Qualified Code(s): D64.9 - Anemia, unspecified (8) Status post reverse total shoulder replacement Qualifiers: Laterality: left Qualified Code(s): Z96.612 - Presence of left artificial shoulder joint
[2019-04-25] MEDS ORDERED: levoFLOXacin 750 MG/150 ML 750 MG/150 ML BAG IVPB SCH ×2 (09:00→12:00)
[2019-04-25] MEDS ORDERED: Linezolid 600 MG TABLET PO SCH (09:00)
--- NOTE | 2019-04-25 11:33 | Podiatry Progress Note ---
Date of Encounter: 04/25/19 Time of Encounter: 11:00 - Assessment and Plan (1) Fracture of right tibia and fibula Current Visit: Yes Status: Acute POD #1 Open reduction with internal fixation right tibia and fibula pilon fracture per Ahmeten - resting comfortably -also being followed per ortho for Distal humerus fracture, status post total shoulder - No complications noted at this time. Afebrile wbc 10..6 Denies any pain -Urine and blood cultures from 04/18 show no growth PLAN: -Pending placement to LTCF- awaiting family decision -SW following - Speech has been consulted for difficulty with swallowing and poor intake -She will be strict non-weightbearing to [facility]. She will follow up in the outpatient clinic 1 week after surgery with Alvarez but will be monitored daily while admitted. - Dressing to be left intact to E at this time. Possible dressing change if p atient remains admitted thursday or -Spoke with Alvarez, states patient had a large diarrhea BM prior to surgery yesterday 04/24, monitor Bms and consistency of stool, if continued diarrhea noted please consider testing for cdiff- patient currently on vancomycin for MRSA pneumonia. Nurse reports however that patient was given a enema on thursday and that she has had no BMs today. Qualifiers: Encounter type: initial encounter Fracture type: closed Qualified Code(s): S82.201A - Unspecified fracture of shaft of right tibia, initial encounter for closed fracture; S82.401A - Unspecified fracture of shaft of right fibula, initial encounter for closed fracture Subjective Principal diagnosis: Distal humerus fracture, status post total shoulder Interval history: Patient is POD #1. Open reduction with internal fixation right tibia and fibula pilon fracture per Vjerren Patient resting comfortably. Family notes poor oral intake. VS stable. no acute complications overnight. Patient denies pain Pending placement to LTC of family choice. Patient denies any fevers, chills, n/v or fls. Objective - Vital Signs Vital Signs: Vital Signs Temp Pulse Resp BP Pulse Ox 04/25/19 11:08 98.0 F 94 16 105/61 94 04/25/19 06:37 99.7 F H 92 18 128/71 94 04/25/19 05:36 98.1 F 90 20 114/70 94 04/24/19 22:20 97.8 F 86 20 120/70 93 04/24/19 19:04 97.4 F L 90 20 120/77 93 04/24/19 18:00 97.7 F 88 18 105/61 95 04/24/19 16:30 98.1 F 87 18 114/71 95 04/24/19 16:21 97.4 F L 89 20 134/69 95 04/24/19 16:12 90 20 147/65 95 04/24/19 16:02 90 20 143/78 94 04/24/19 15:52 98.1 F 93 27 167/89 96 04/24/19 11:39 98.1 F 95 18 121/62 96 Intake and Output 04/24/19 04/25/19 04/25/19 23:59 07:59 15:59 Intake Total 250 / 550 0 / 150 150 / 150 Output Total 200 / 460 250 / 250 Balance 50 / 90 -250 / -100 150 / -100 Intake: IV Fluids 150 / 150 Levaquin Premix 750mg/150 mL 150 / 150 750 mg In 150 ml @ 100 mls/hr IVPB Q24H [facility] Rx#:[id number] Oral 250 / 550 0 / 0 Output: Urine 200 / 200 Catheter 250 / 250 Other: Weight 96.7 kg Blood Glucose* 120 105 90 Patient Weight 04/25/19 23:59 Weight 96.7 kg - Exam Exam: CONSTITUIONAL: Awake alert and oriented - flat affect PULSES: unable to palpable related to presence of posterior splint. toes warm. cap refil <3 seconds. no calf pain to squeeze NEUROLOGICAL: sensation to toes intact to pressure and light touch MUSCULOSKELETAL: Movement of toes intact Post op: Posterior splint left intact at this time. no strikethrough drainage noted. Proper alignment. no acute issues. - Lab Result Diagrams: 04/25/19 00:53 04/25/19 00:53 Labs: Abnormal lab results WBC 15.3 K/mcL (4.3-11.1) H 04/23/19 02:45 RBC 3.18 M/mcL (3.82-4.97) L 04/25/19 00:53 Hgb 8.6 g/dL (11.5-15.4) L 04/25/19 00:53 Hct 28.0 % (35.3-44.9) L 04/25/19 00:53 MCH 27.0 pg (28.0-33.3) L 04/25/19 00:53 MCHC 30.7 g/dL (31.6-35.5) L 04/25/19 00:53 RDW 15.2 % (11.5-14.5) H 04/25/19 00:53 Band Neutrophils % 6.0 % (0-4) H 04/24/19 06:53 Myelocytes % 2.0 % (0) H 04/24/19 06:53 Neutrophils # 12.9 K/mcL (1.6-8.9) H 04/23/19 02:45 PT 13.8 Seconds (9.4-12.1) H 04/17/19 20:42 Sodium 135 mEq/L (136-145) L 04/21/19 03:03 Chloride 97 mEq/L (98-107) L 04/20/19 05:12 Carbon Dioxide 31 mEq/L (23-29) H 04/20/19 05:12 BUN 26 mg/dL (8-23) H 04/25/19 00:53 Creatinine 0.57 mg/dL (0.60-1.20) L 04/25/19 00:53 BUN/Creatinine Ratio 46 (6-26) H 04/25/19 00:53 Glucose 114 mg/dL (70-105) H 04/25/19 00:53 POC Glucose 120 mg/dL (70-99) H 04/24/19 20:47 Hemoglobin A1c 5.7 % (-5.6) H 04/18/19 01:31 Calcium 8.4 mg/dL (8.6-10.3) L 04/22/19 03:34 Serum Total Protein 5.8 g/dL (6.4-8.9) L 04/17/19 20:42 Albumin 3.0 g/dL (3.5-5.7) L 04/17/19 20:42 LDL Cholesterol, Calc 106 mg/dL (0-99) H 04/18/19 01:31 HDL Cholesterol 27 mg/dL (40-59) L 04/18/19 01:31 Cholesterol/HDL Ratio 6.0 (0-4.9) H 04/18/19 01:31 Ur Specific Eure 1.027 (1.010-1.025) H 04/18/19 01:15 Urine Ketones 15 mg/dL (Negative) H 04/18/19 01:15 Urine Blood Small (Negative) H 04/18/19 01:15 Urine Bilirubin Small (Negative) H 04/18/19 01:15 Ur Leukocyte Esterase Trace (Negative) H 04/18/19 01:15 Urine Microscopic WBC 3-5 per hpf (0-3) H 04/18/19 01:15 Ur Squamous Epith Cells Many per lpf (None-Few) H 04/18/19 01:15 Ur Culture Indicated? YES (NO) A 04/18/19 01:15 Nasal Screen MRSA (PCR) DETECTED (Not Detect) A 04/19/19 13:13 Vancomycin Trough 16 mcg/mL (5-10) H 04/24/19 10:05 Microbiology, Last 48 Hours 04/19/19 04:43 Blood Culture - Final Peripheral Venipuncture No growth. Final report. 04/19/19 04:14 Blood Culture - Final Peripheral Venipuncture No growth. Final report. 04/18/19 19:29 Blood Culture - Final Peripheral Venipuncture No growth. Final report. 04/18/19 19:29 Blood Culture - Final Peripheral Venipuncture No growth. Final report. 04/20/19 18:11 Anaerobic Culture - Preliminary Left Arm At this time, no anaerobic growth is present. The culture will be finalized after 5 days of incubation. Consult Discharge Plan - Plan Referrals: NONE,PCP [Primary Care Provider] - Prescriptions: Docusate [Colace] 100 mg PO BID 30 Days #60 capsule Lactobacillus [Culturelle] 1 each PO DAILY #10 cap.sprink Levofloxacin [Levaquin] 750 mg PO DAILY 2 Days #2 tablet Linezolid 600 mg PO BID 3 Days #6 tablet OxyCODONE/APAP 5/325 [Percocet 5/325 MG] 1 each PO Q4HR PRN 30 Days #120 tablet PRN Reason: pain Sennosides [Senna] 17.6 mg PO HS 10 Days #30 mls
[2019-04-25] MEDS: *HR* OxyCODONE Immed Rel 5 MG TABLET PO PRN (13:05)
--- NOTE | 2019-04-25 13:42 | Event Note ---
Date of Encounter: 04/25/19 Time of Encounter: 13:42 PCR - POD#5 Revision humeral component left total shoulder replacement reverse, open reduction internal fixation left humerus 04/20/19 Patient seen at bedside, without complaints. A&O x 3 Vitals and labwork reviewed. Patient sleeping supine in bed. Easily awoken. Posterior splint with Slingshot sling noted to LUE. RLE in GIGI wrap with bandages propped on pillow. Patient states her arm is "okay". Left hand noted to be swollen with 3+ pitting edema. Patient able to make partial fist, however, limited secondary to edema. Finger motion intact to large extent despite edema. Sensation intact distally. TEX drain was removed drag out worker on 04/20. New xeroform, dry gauze kerlix dressings applied with the posterior splint and sling on 04/20. Medical management per primary team. All questions and concerns addressed. Encourage use of incentive spirometer 10x hourly while awake Encouraged proper hydration. Patient educated on post-operative restrictions and post-operative care and verbalized understanding as outline below. Patient noted to have had ORIF right tib/fib by Dr. Pino on 04/24. She is now nonweightbearing with no motion of the right foot/ankle. NO SHOULDER or ELBOW Range of motion to the left upper extremity. Patient to remain in long posterior splint to the left upper extremity at all times with sling applied for positioning and comfort. Wear sling at all times. Patient is NONWEIGHTBEARING to the left upper extremity. DO encourage hand and wrist motion with elevation to decrease swelling. DO apply bone stimulator 3 hrs daily at the same time each day to humerus. Assessment and plan: Continue with postoperative care Discharge plan: once medically cleared, possible return to [facility] versus alternate facility pending patient/daughter input and social work evaluation.
[2019-04-25] MEDS: Acetaminophen 325 MG TABLET PO PRN (21:37)
[2019-04-26] MEDS: *HR* OxyCODONE Immed Rel 5 MG TABLET PO PRN ×2 (02:24→11:36)
[2019-04-26 05:08] LABS: Basophils % 0.4 %; Eosinophils % 0.4 %; Hematocrit 27.2 % (35.3-44.9); Hemoglobin 8.3 g/dL (11.5-15.4); Immature Granulocytes % 4.7 % (0-4); Lymphocytes # 0.7 K/mcL (0.6-4.6); Lymphocytes % 8.3 %; Mean Corpuscular HGB Conc 30.5 g/dL (31.6-35.5); Mean Corpuscular Hemoglobin 26.8 pg (28.0-33.3); Mean Corpuscular Volume 87.7 fL (83.0-100.0); Monocytes # 0.9 K/mcL (0.0-1.3); Monocytes % 10.3 %; Neutrophils # 6.3 K/mcL (1.6-8.9); Platelet Count 296 K/mcL (140-400); Red Cell Distribution Width 15.6 % (11.5-14.5); Segmented Neutrophils % 75.9 %; White Blood Count 8.3 K/mcL (4.3-11.1)
[2019-04-26 05:30] LABS: BUN/Creatinine Ratio 48 (6-26); Blood Urea Nitrogen 24 mg/dL (8-23); Calcium 8.3 mg/dL (8.6-10.3); Carbon Dioxide 26 mEq/L (23-29); Chloride 105 mEq/L (98-107); Glucose 92 mg/dL (70-105); Osmolality,Calculated 290 (280-300); Potassium 4.2 mEq/L (3.5-5.1); Sodium 138 mEq/L (136-145); eGFR For African Americans > 60 (> 60); eGFR For Non-African Americans > 60 (> 60)
[2019-04-26 05:35] LABS: Platelet Estimate Normal (Normal)
[2019-04-26] MEDS: *HR* Enoxaparin 40 MG/0.4 ML SYRINGE SQ SCH (05:50)
[2019-04-26] MEDS ORDERED: levoFLOXacin 750 MG TABLET PO SCH (09:00)
[2019-04-26] MEDS ORDERED: levoFLOXacin 500 MG TABLET PO SCH (09:00)
[2019-04-26] MEDS: Insulin LISPRO 300 UNITS/3 ML VIAL SQ SCH ×2 (09:48→11:35)
[2019-04-26] MEDS: Lactobacillus 1 EACH CAP.SPRINK PO SCH (09:51)
--- NOTE | 2019-04-26 10:09 | Podiatry Progress Note ---
Date of Encounter: 04/26/19 Time of Encounter: 11:00 - Assessment and Plan (1) Fracture of right tibia and fibula Current Visit: Yes Status: Acute POD #2 Open reduction with internal fixation right tibia and fibula pilon fracture per McFerren - resting comfortably -also being followed per ortho for Distal humerus fracture, status post total shoulder - No complications noted at this time. Afebrile wbc 8.3 Denies any pain -Urine and blood cultures from 04/18 show no growth - splint to RLE clean dry and intact PLAN: -Pending placement to LTCF- awaiting family decision and insurance acceptance -SW following -patient will need discharged on xarelto 10mg PO x21 days for DVT prophylaxis- order printed and placed to chart - Recommend norco 5mg PO Q6H PRN for pain however will let internal medicine manage at this time based on patients behavior and concern of confusion and falls. - Speech consulted yesterday and recommended soft chunk food only. Nurse reports increased oral intake today. -She will be strict non-weightbearing to [facility]. She will follow up in the outpatient clinic 1 week after surgery with Alvarez but will be monitored daily while admitted. - Dressing to be left intact to RLE at this time. Possible dressing change if patient remains admitted thursday or - please make patients follow up appointment prior to discharge Qualifiers: Qualified Code(s): S82.201A - Unspecified fracture of shaft of right tibia, initial encounter for closed fracture; S82.401A - Unspecified fracture of shaft of right fibula, initial encounter for closed fracture Subjective Principal diagnosis: Distal humerus fracture, status post total shoulder Interval history: Patient is POD #2. Open reduction with internal fixation right tibia and fibula pilon fracture per McFerren Patient resting comfortably.Nurse notes increase in oral intake. VS stable. no acute complications overnight. Patient denies pain Pending placement to LTC of family choice. Patient denies any fevers, chills, n/v or fls. no calf pain or SOB Objective - Vital Signs Vital Signs: Vital Signs Temp Pulse Resp BP Pulse Ox 04/26/19 08:36 98.2 F 90 19 143/73 95 04/26/19 04:51 99.2 F 91 16 144/76 96 04/25/19 23:41 98.2 F 92 16 113/69 95 04/25/19 18:57 98.9 F 99 17 125/72 93 04/25/19 16:35 98.5 F 101 18 124/76 95 04/25/19 11:08 98.0 F 94 16 105/61 94 Intake and Output 04/25/19 04/26/19 04/26/19 23:59 07:59 15:59 Intake Total 100 / 500 150 / 150 Output Total 725 / 975 125 / 225 100 / 225 Balance -625 / -475 -125 / -75 50 / -75 Intake: Oral 100 / 100 150 / 150 Output: Catheter 725 / 975 125 / 225 100 / 225 Other: Weight 97.5 kg Blood Glucose* 109 85 Patient Weight 04/26/19 23:59 Weight 97.5 kg - Exam Exam: CONSTITUIONAL: Awake alert and oriented - flat affect PULSES: unable to palpable related to presence of posterior splint. toes warm. cap refil <3 seconds. no calf pain to squeeze NEUROLOGICAL: sensation to toes intact to pressure and light touch MUSCULOSKELETAL: Movement of toes intact Post op: Posterior splint left intact at this time. no strikethrough drainage noted. Proper alignment. no acute issues. - Lab Result Diagrams: 04/26/19 04:55 04/26/19 04:55 Labs: Abnormal lab results WBC 15.3 K/mcL (4.3-11.1) H 04/23/19 02:45 RBC 3.10 M/mcL (3.82-4.97) L 04/26/19 04:55 Hgb 8.3 g/dL (11.5-15.4) L 04/26/19 04:55 Hct 27.2 % (35.3-44.9) L 04/26/19 04:55 MCH 26.8 pg (28.0-33.3) L 04/26/19 04:55 MCHC 30.5 g/dL (31.6-35.5) L 04/26/19 04:55 RDW 15.6 % (11.5-14.5) H 04/26/19 04:55 Immature Gran % 4.7 % (0-4) H 04/26/19 04:55 Band Neutrophils % 6.0 % (0-4) H 04/24/19 06:53 Myelocytes % 2.0 % (0) H 04/24/19 06:53 Neutrophils # 12.9 K/mcL (1.6-8.9) H 04/23/19 02:45 PT 13.8 Seconds (9.4-12.1) H 04/17/19 20:42 Sodium 135 mEq/L (136-145) L 04/21/19 03:03 Chloride 97 mEq/L (98-107) L 04/20/19 05:12 Carbon Dioxide 31 mEq/L (23-29) H 04/20/19 05:12 BUN 24 mg/dL (8-23) H 04/26/19 04:55 Creatinine 0.50 mg/dL (0.60-1.20) L 04/26/19 04:55 BUN/Creatinine Ratio 48 (6-26) H 04/26/19 04:55 Glucose 114 mg/dL (70-105) H 04/25/19 00:53 POC Glucose 105 mg/dL (70-99) H 04/25/19 07:04 Hemoglobin A1c 5.7 % (-5.6) H 04/18/19 01:31 Calcium 8.3 mg/dL (8.6-10.3) L 04/26/19 04:55 Serum Total Protein 5.8 g/dL (6.4-8.9) L 04/17/19 20:42 Albumin 3.0 g/dL (3.5-5.7) L 04/17/19 20:42 LDL Cholesterol, Calc 106 mg/dL (0-99) H 04/18/19 01:31 HDL Cholesterol 27 mg/dL (40-59) L 04/18/19 01:31 Cholesterol/HDL Ratio 6.0 (0-4.9) H 04/18/19 01:31 Ur Specific Greer 1.027 (1.010-1.025) H 04/18/19 01:15 Urine Ketones 15 mg/dL (Negative) H 04/18/19 01:15 Urine Blood Small (Negative) H 04/18/19 01:15 Urine Bilirubin Small (Negative) H 04/18/19 01:15 Ur Leukocyte Esterase Trace (Negative) H 04/18/19 01:15 Urine Microscopic WBC 3-5 per hpf (0-3) H 04/18/19 01:15 Ur Squamous Epith Cells Many per lpf (None-Few) H 04/18/19 01:15 Ur Culture Indicated? YES (NO) A 04/18/19 01:15 Nasal Screen MRSA (PCR) DETECTED (Not Detect) A 04/19/19 13:13 Vancomycin Trough 16 mcg/mL (5-10) H 04/24/19 10:05 Microbiology, Last 48 Hours 04/20/19 18:11 Anaerobic Culture - Final Left Arm No anaerobes were recovered. Consult Discharge Plan - Plan Referrals: NONE,PCP [Primary Care Provider] - Prescriptions: Docusate [Colace] 100 mg PO BID 30 Days #60 capsule Lactobacillus [Culturelle] 1 each PO DAILY #10 cap.sprink Doxycycline 100 mg PO BID 2 Days #4 capsule Levofloxacin [Levaquin] 750 mg PO DAILY 2 Days #2 tablet OxyCODONE/APAP 5/325 [Percocet 5/325 MG] 1 each PO Q4HR PRN 30 Days #120 tablet PRN Reason: pain Sennosides [Senna] 17.6 mg PO HS 10 Days #30 mls Rivaroxaban [Xarelto] 10 mg PO DAILY 21 Days #21 tablet
--- NOTE | 2019-04-26 11:38 | Discharge Summary ---
<Jacek Anderson I - Last Filed: 04/26/19 13:51> - NOTES TO OUTPATIENT PROVIDER Notes to Outpatient Provider: Patient with history of diabetes, prior left shoulder replacement was initially hospitalized here with pneumonia and displaced fracture of proximal left humerus treated with ORIF and vanc and levequin for pnumonia . While patient was recovering from this, she also complained of pain in her right lower extremity. X-ray of this extremity revealed displaced and comminuted tib-fib fractures. Podiatry was consulted and patient underwent open reduction internal fixation for this .She will complete antibiotic course for her pneumonia in 2 days. She will be on DVT prophylaxis during her stay at rehabilitation facility. Date of Encounter: 04/26/19 - Discharge Diagnosis (1) Fracture of right tibia and fibula Priority: Primary Status: Acute Qualifiers: Encounter type: initial encounter Fracture type: closed Qualified Code (s): S82.201A - Unspecified fracture of shaft of right tibia, initial encounter for closed fracture; S82.401A - Unspecified fracture of shaft of right fibula, initial encounter for closed fracture (2) Displaced fracture of proximal end of left humerus Priority: Secondary Status: Acute (3) Sepsis Priority: Secondary Status: Acute Qualifiers: Qualified Code(s): A41.9 - Sepsis, unspecified organism; R65.20 - Severe sepsis without septic shock (4) Tachycardia Priority: Secondary Status: Acute (5) Decreased urine output Priority: Secondary Status: Acute (6) Anemia Priority: Secondary Status: Acute Qualifiers: Anemia type: unspecified type Qualified Code(s): D64.9 - Anemia, unspecified (7) Morbid obesity with BMI of 40.0-44.9, adult Priority: Secondary Status: Chronic (8) Status post reverse total shoulder replacement Priority: Secondary Status: Acute Qualifiers: Laterality: left Qualified Code(s): Z96.612 - Presence of left artificial shoulder joint Hospital course: Ms. Topete is a 78 year old female with history of diabetes, prior left shoulder replacement was initially hospitalized here with pneumonia and displaced fracture of proximal wound of left humerus after she slid down to the floor while being transported by EMS. Patient was treated with antibiotics for her pneumonia. MRSA screen was positive. She received vancomycin and Levaquin . She was evaluated by orthopedics regarding her left shoulder fracture. She underwent surgery for this with Revision humeral component left total shoulder r eplacement reverse, open reduction internal fixation left humerus. While patient was recovering from this, she also complained of pain in her right lower extremity. X-ray of this extremity revealed displaced and comminuted tib-fib fractures. Podiatry was consulted and patient underwent open reduction internal fixation for this. She had some difficulty with swallowing and her diet was changed to mechanical soft also she had urinary retention which required Arana . She is since recovering well and is now stable to be discharged to skilled rehabilitation. She will complete antibiotic course for her pneumonia in 2 days. She will be on DVT prophylaxis during her stay at rehabilitation facility. She will follow up with orthopedics and podiatry and urology after discharge. - Time Spent with Patient Total time spent providing and/or coordinating discharge services: - Discharge Medications Prescriptions: New Docusate [Colace] 100 mg PO BID 30 Days #60 capsule Levofloxacin [Levaquin] 750 mg PO DAILY 2 Days #2 tablet Lactobacillus [Culturelle] 1 each PO DAILY #10 cap.sprink Sennosides [Senna] 17.6 mg PO HS 10 Days #30 mls Rivaroxaban [Xarelto] 10 mg PO DAILY 21 Days #21 tablet Doxycycline 100 mg PO BID 2 Days #4 capsule OxyCODONE/APAP 10/325 [Percocet 10/325 MG] 1 each PO Q6HR PRN 7 Days #28 t ablet PRN Reason: Pain Continued Cholecalciferol (D-3) [Vitamin D] 2,000 unit PO DAILY tablet Discontinued Enoxaparin [Lovenox] 40 mg SQ DAILY 30 Days syr Ondansetron [Zofran] 4 mg IVP Q4H PRN vial PRN Reason: Nausea And Vomiting Potassium Chloride 10 meq PO BIDWM tab.er.prt Home Medications: Cholecalciferol (D-3) [Vitamin D] 2,000 unit PO DAILY tablet 04/17/19 [Rx] Docusate [Colace] 100 mg PO BID 30 Days #60 capsule 04/23/19 [Rx] Lactobacillus [Culturelle] 1 each PO DAILY #10 cap.sprink 04/23/19 [Rx] Levofloxacin [Levaquin] 750 mg PO DAILY 2 Days #2 tablet 04/23/19 [Rx] Sennosides [Senna] 17.6 mg PO HS 10 Days #30 mls 04/23/19 [Rx] Doxycycline 100 mg PO BID 2 Days #4 capsule 04/26/19 [Rx] OxyCODONE/APAP 10/325 [Percocet 10/325 MG] 1 each PO Q6HR PRN 7 Days #28 tablet 04/26/19 [Rx] Rivaroxaban [Xarelto] 10 mg PO DAILY 21 Days #21 tablet 04/26/19 [Rx] Allergies/Adverse Reactions: Allergy/AdvReac Type Severity Reaction Status Date / Time Amoxicillin Allergy Hives Verified 04/12/19 08:05 Penicillins Allergy Hives Verified 04/12/19 08:05 Date of admission: 04/17/19 23:40 Primary care physician: PCP NONE Consults: 04/17/19 22:08 Consult to Nutrition [CONS] Routine Comment: CHOCOLATE BOOST OR ENSURE Consulting Provider: NUTRITION Reason for Dietary Consult: MST Score PO Supplementation 04/17/19 23:32 Consult to Orthopedic Surgery [CONS] Routine Consulting Provider: [facility] Reason for Consult: Patient had left shoulder surgery in January 2019. Patient now has overriding angulated distal humeral diaphyseal fracture. Call Completed: Yes 04/17/19 23:39 Consult to Electrical Systems Drafter [CONS] Routine Reason for SW Consult: Please assess patient for possible home needs for post-discharge planning. 04/20/19 16:11 Consult to Occupational Therapy [CONS] Routine Comment: post shoulder surgery Reason for Consult: post shoulder surgery Does patient have active BEDREST order?: No Is patient medically & hemodynamically stable?: Yes Consult to Physical Therapy [CONS] Routine Comment: post shoulder surgery Reason for Consult: post shoulder surgery Does patient have active BEDREST order?: No Is patient medically & hemodynamically stable?: Yes Consult to Electrical Systems Drafter [CONS] Routine Reason for SW Consult: shoulder surgery RT Post Op Consult [CONS] Routine 04/23/19 15:46 Consult to Podiatry [CONS] Routine Consulting Provider: [facility] Reason for Consult: right tibia and fibula fracture Call Completed: No 04/25/19 11:45 Consult to Speech Therapy [CONS] Routine Comment: Evaluate, develop and implement POC Reason for Consult: dysphagia Call Completed: No - Constitutional Vitals: Temp Pulse Resp BP Pulse Ox 98.2 F 90 19 143/73 95 04/26/19 08:36 04/26/19 08:36 04/26/19 08:36 04/26/19 08:36 04/26/19 08:36 General appearance: Present: cooperative, A&O X 3, pleasant, no acute distress, obese, answers questions appropriately Exam: . - Head Head exam: Present: atraumatic, normal inspection - Eye Eye exam: Present: EOMI, PERRL - Neck Neck exam general surgery: Present: full ROM, trachea midline - Respiratory Respiratory exam: Present: CTAB - Cardiovascular Cardiovascular exam: Present: RRR, +S1, +S2 - GI/Abdominal GI/Abdominal exam: Present: normal bowel sounds, soft - Expanded Upper Extremities Exam Upper Arm exam: Present: ecchymosis (present ), swelling, tenderness - Expanded Lower Extremities Exam Hip exam: Present: tenderness Lower Leg exam: Present: swelling, tenderness - Neurological Exam Neurological exam: Present: alert, normal gait, oriented X3 - Psychiatric Psychiatric exam: Present: normal affect, normal mood - Skin Skin exam: Present: intact, normal color, warm - Patient Status Disposition: Transfer Inpatient Rehab Fac Condition: Fair Overall status at discharge: patient is not back to baseline - Discharge Instructions Instructions: Arm Fracture in Adults (DC), Sepsis (DC), Anemia (GEN) Follow Up With: NONE,PCP [Primary Care Provider] - - Diet and Activity Activity: as per physical therapy Diet: other (mechanical soft) <Britt Mercedes - Last Filed: 04/26/19 22:44> Date of Encounter: 04/26/19 Time of Encounter: 09:35 - Discharge Diagnosis (1) Displaced fracture of proximal end of left humerus Status: Acute (2) Diabetes mellitus type 2 in obese Status: Chronic (3) Generalized weakness Status: Inactive (4) Failure to thrive in adult Status: Acute (5) Anemia Status: Acute Qualifiers: Anemia type: unspecified type Qualified Code(s): D64.9 - Anemia, unspecified (6) DVT prophylaxis Status: Acute Hospital course: Ms. Topete is a 78 year old female - Time Spent with Patient Total time spent providing and/or coordinating discharge services: Date of admission: 04/17/19 23:40 Primary care physician: PCP NONE Consults: 04/17/19 22:08 Consult to Nutrition [CONS] Routine Comment: CHOCOLATE BOOST OR ENSURE Consulting Provider: NUTRITION Reason for Dietary Consult: MST Score PO Supplementation 04/17/19 23:32 Consult to Orthopedic Surgery [CONS] Routine Consulting Provider: [facility] Reason for Consult: Patient had left shoulder surgery in January 2019. Patient now has overriding angulated distal humeral diaphyseal fracture. Call Completed: Yes 04/17/19 23:39 Consult to Electrical Systems Drafter [CONS] Routine Reason for SW Consult: Please assess patient for possible home needs for pos t-discharge planning. 04/20/19 16:11 Consult to Occupational Therapy [CONS] Routine Comment: post shoulder surgery Reason for Consult: post shoulder surgery Does patient have active BEDREST order?: No Is patient medically & hemodynamically stable?: Yes Consult to Physical Therapy [CONS] Routine Comment: post shoulder surgery Reason for Consult: post shoulder surgery Does patient have active BEDREST order?: No Is patient medically & hemodynamically stable?: Yes Consult to Electrical Systems Drafter [CONS] Routine Reason for SW Consult: shoulder surgery RT Post Op Consult [CONS] Routine 04/23/19 15:46 Consult to Podiatry [CONS] Routine Consulting Provider: [facility] Reason for Consult: right tibia and fibula fracture Call Completed: No 04/25/19 11:45 Consult to Speech Therapy [CONS] Routine Comment: Evaluate, develop and implement POC Reason for Consult: dysphagia Call Completed: No - Constitutional Vitals: Temp Pulse Resp BP Pulse Ox 98.5 F 90 20 142/72 94 04/26/19 11:38 04/26/19 11:38 04/26/19 11:38 04/26/19 11:38 04/26/19 11:38 - Attending Attestation I saw evaluated and examined this patient and reviewed objective data including labs and my medical decision-making was reviewed with the Resident Physician. I agree with the documented findings, disposition and discharge plan as described except to any changes set forth below. We independently had [id number] contact with the patient. Patient with history of diabetes, prior left shoulder replacement was initially hospitalized here with pneumonia and displaced fracture of proximal wound of left humerus after she slid down to the floor while being transported by EMS. Patient was treated with antibiotics for her pneumonia. MRSA screen was positive. She received vancomycin and Levaquin and as such. She was evaluated by orthopedics regarding her left shoulder fracture. She underwent surgery for this with Revision humeral component left total shoulder replacement reverse, open reduction internal fixation left humerus. While patient was recovering from this, she also complained of pain in her right lower extremity. X-ray of this extremity revealed displaced and comminuted tib-fib fractures. Podiatry was consulted and patient underwent open reduction internal fixation for this. She is since recovering well and is now stable to be discharged to skilled rehabilitation. She will complete antibiotic course for her pneumonia in 2 days. She will be on DVT prophylaxis during her stay at rehabilitation facility. She will follow up with orthopedics and podiatry after discharge. Time spent on discharge: 10 min
--- NOTE | 2019-04-26 11:40 | Physician Discharge Referral ---
ExtendedCare Referral Info Provider in Charge after Transfer: PCP Institutional Level of Care: Skilled - Diagnosis (1) Fracture of right tibia and fibula Priority: Primary Status: Acute (2) Displaced fracture of proximal end of left humerus Priority: Secondary Status: Acute (3) Sepsis Priority: Secondary Status: Acute (4) Tachycardia Priority: Secondary Status: Acute (5) Decreased urine output Priority: Secondary Status: Acute (6) Anemia Priority: Secondary Status: Acute (7) Morbid obesity with BMI of 40.0-44.9, adult Priority: Secondary Status: Chronic (8) Status post reverse total shoulder replacement Priority: Secondary Status: Acute - Transfer Medications Prescriptions: Docusate [Colace] 100 mg PO BID 30 Days #60 capsule Lactobacillus [Culturelle] 1 each PO DAILY #10 cap.sprink Doxycycline 100 mg PO BID 2 Days #4 capsule Levofloxacin [Levaquin] 750 mg PO DAILY 2 Days #2 tablet OxyCODONE/APAP 5/325 [Percocet 5/325 MG] 1 each PO Q4HR PRN 30 Days #120 tablet PRN Reason: pain Sennosides [Senna] 17.6 mg PO HS 10 Days #30 mls Rivaroxaban [Xarelto] 10 mg PO DAILY 21 Days #21 tablet Home Medications: Cholecalciferol (D-3) [Vitamin D] 2,000 unit PO DAILY tablet 04/17/19 [Rx] Docusate [Colace] 100 mg PO BID 30 Days #60 capsule 04/23/19 [Rx] Lactobacillus [Culturelle] 1 each PO DAILY #10 cap.sprink 04/23/19 [Rx] Levofloxacin [Levaquin] 750 mg PO DAILY 2 Days #2 tablet 04/23/19 [Rx] OxyCODONE/APAP 5/325 [Percocet 5/325 MG] 1 each PO Q4HR PRN 30 Days #120 tablet 04/23/19 [Rx] Sennosides [Senna] 17.6 mg PO HS 10 Days #30 mls 04/23/19 [Rx] Doxycycline 100 mg PO BID 2 Days #4 capsule 04/26/19 [Rx] Rivaroxaban [Xarelto] 10 mg PO DAILY 21 Days #21 tablet 04/26/19 [Rx] Allergies/Adverse Reactions: Allergy/AdvReac Type Severity Reaction Status Date / Time Amoxicillin Allergy Hives Verified 04/12/19 08:05 Penicillins Allergy Hives Verified 04/12/19 08:05 - Respiratory Orders Other (keep SPO2 above 88) Smoking Cessation: Smoking cessation has been advised. For more information, call the [place] Tobacco Quit Line at 9-448-XWMG-NOW. - Ancillary Orders May use pressure relief devices daily prn - Advance Directives Code Status: Full Code - Mobility Orders Ambulate - Rehabiliation Orders Rehab Potential: Fair Rehab Orders: ROM Exercises, Evaluation for Physical Therapy, Evaluation for Occupational Therapy, Evaluation for Speech Therapy - Treatments Skin tear care topically daily PRN per policy - Diet Orders Mechanical Soft CERTIFICATION: I certify that the transfer of the above named patient to an Extended Care Facility is necessary for the continuing treatment of the diagnosis listed. The above information is true and accurate reflection of patient's current condition. Confidential - Redisclosure prohibited without a patient's written consent.
[2019-04-26 15:24] VITALS: BP 137/72
[2019-04-26] MEDS ORDERED: Aminoglycoside Consult 1 EACH MC ONE (16:27)
== END 2019-04-26 16:28 | DRG 483 ==
LOC: 3NENU → SUATTDRO 23:40
PROVIDERS: ADMIT Internal Medicine; ATTEND Internal Medicine

== ENCOUNTER 2019-05-09 11:57 | Inpatient (IN) ==
[2019-05-09] MEDS ORDERED: Furosemide 40 MG/4 ML VIAL IVP ONE ×2 (14:51→17:40)
[2019-05-09] MEDS ORDERED: Vancomycin 0 MG in 0.9 % Sodium Chloride 250 ML IVPB SCH (15:00)
[2019-05-09 15:26] LABS: Bilirubin,Urine Negative (Negative); Blood,Urine Large (Negative); Clarity,Urine Cloudy (Clear); Color,Urine Yellow (Yellow); Glucose,Urine (UA) Normal (Normal); Ketones,Urine 15 mg/dL (Negative); Leukocyte Esterase,Urine Moderate (Negative); Nitrite,Urine Negative (Negative); PH,Urine 5.5 pH Units (5.0-8.0); Protein,Urine 30 mg/dL (Neg-Trace); Specific Gravity,Urine 1.017 (1.010-1.025); Urobilinogen,Urine Normal (Normal)
[2019-05-09 15:30] LABS: Bacteria,Urine None Seen per hpf (None-Few); Hyaline Casts,Urine Few per lpf (None-Few); Squamous Epithelial Cell,Urine Moderate per lpf (None-Few); WBC,Urine 15-30 per hpf (0-3)
[2019-05-09 15:42] LABS: Alanine Aminotransferase 14 Units/L (7-52); Albumin 2.5 g/dL (3.5-5.7); Albumin/Globulin Ratio 0.9 (1.1-2.2); Alkaline Phosphatase 112 Units/L (34-104); Aspartate Amino Transferase 12 Units/L (13-39); BUN/Creatinine Ratio 42 (6-26); Bilirubin,Total 0.6 mg/dL (0.3-1.0); Blood Urea Nitrogen 18 mg/dL (8-23); Calcium 8.1 mg/dL (8.6-10.3); Carbon Dioxide 27 mEq/L (23-29); Chloride 105 mEq/L (98-107); Globulin 2.9 g/dL (2.4-3.5); Glucose 131 mg/dL (70-105); Osmolality,Calculated 300 (280-300); Potassium 3.9 mEq/L (3.5-5.1); Sodium 143 mEq/L (136-145); Total Protein 5.4 g/dL (6.4-8.9); eGFR For African Americans > 60 (> 60); eGFR For Non-African Americans > 60 (> 60)
[2019-05-09 15:53] LABS: RBC,Urine TNTC per hpf (0-3); Yeast,Urine Many per hpf (None Seen)
[2019-05-09] MEDS: Ipratropium/Albuterol Neb 3 ML IH SCH ×2 (16:00→21:47)
[2019-05-09 16:20] LABS: VBG Ionized Calcium 0.97 mmol/L (1.15-1.35)
[2019-05-09] MEDS ORDERED: Furosemide 40 MG in 0.9 % Sodium Chloride 50 ML IVPB ONE (17:04)
[2019-05-09 17:07] LABS: Basophils % 0.1 %; Hematocrit 29.3 % (35.3-44.9); Hemoglobin 8.9 g/dL (11.5-15.4); Immature Granulocytes % 0.5 % (0-4); Lymphocytes # 1.4 K/mcL (0.6-4.6); Lymphocytes % 16.8 %; Mean Corpuscular HGB Conc 30.4 g/dL (31.6-35.5); Mean Corpuscular Hemoglobin 27.6 pg (28.0-33.3); Mean Corpuscular Volume 90.7 fL (83.0-100.0); Mean Platelet Volume 9.8 fL (9.4-12.4); Monocytes # 0.7 K/mcL (0.0-1.3); Monocytes % 8.1 %; Neutrophils # 6.4 K/mcL (1.6-8.9); Platelet Count 226 K/mcL (140-400); Red Blood Count 3.23 M/mcL (3.82-4.97); Red Cell Distribution Width 17.7 % (11.5-14.5); Segmented Neutrophils % 74.5 %; White Blood Count 8.6 K/mcL (4.3-11.1)
[2019-05-09 17:20] LABS: BUN/Creatinine Ratio 46 (6-26); Blood Urea Nitrogen 19 mg/dL (8-23); Calcium 7.9 mg/dL (8.6-10.3); Carbon Dioxide 29 mEq/L (23-29); Chloride 107 mEq/L (98-107); Glucose 126 mg/dL (70-105); Magnesium 1.9 mg/dL (1.6-2.6); Osmolality,Calculated 300 (280-300); Phosphorous 3.3 mg/dL (2.7-4.5); Potassium 3.7 mEq/L (3.5-5.1); Sodium 143 mEq/L (136-145); eGFR For African Americans > 60 (> 60); eGFR For Non-African Americans > 60 (> 60)
[2019-05-09] MEDS ORDERED: Potassium Phosphate 44 MEQ in 0.9 % Sodium Chloride 250 ML IVPB PRN (17:34)
[2019-05-09] MEDS ORDERED: Calcium Gluconate 1gm/50mL 1 GM/50 ML BAG IVPB PRN (17:34)
[2019-05-09 17:55] LABS: Anisocytosis 1+ (Not Present); Platelet Estimate Normal (Normal); Polychromasia 1+ (Not Present); Smudge Cells Present (Not Present)
[2019-05-09] MEDS ORDERED: Isovue-370 500 ML BOTTLE IVP ONE (18:57)
[2019-05-09] MEDS ORDERED: 0.9 % Sodium Chloride 250 ML IVC ONE (19:09)
[2019-05-09 19:38] LABS: ABG Base Excess 6 mEq/L (-2 to 3); ABG HCO3 29 mEq/L (21-27); ABG Oxygen Saturation 100 % (95-98); ABG PCO2 37 mmHg (35-45); ABG PO2 189 mmHg (85-104); ABG TCO2 30 mEq/L (20-26); Blood Gas Modality VC; Blood Gas VT 450 cc
[2019-05-09] MEDS: FentaNYL (PF) 1,000 MCG in 0.9 % Sodium Chloride 80 ML IVC SCH (20:12)
[2019-05-09 21:35] LABS: ABG Base Excess 3 mEq/L (-2 to 3); ABG HCO3 30 mEq/L (21-27); ABG Oxygen Saturation 97 % (95-98); ABG PCO2 56 mmHg (35-45); ABG PH 7.33 pH Units (7.32-7.45); ABG PO2 94 mmHg (85-104); ABG TCO2 32 mEq/L (20-26); Blood Gas Modality VC; Blood Gas VT 450 cc
[2019-05-09] MEDS: Cefepime HCl 1,000 MG in Water for inj. (sterile) 10 ML IVP SCH (21:39)
[2019-05-09] MEDS: Chlorhexidine Rinse 15 ML MOUTHWASH MM SCH (22:36)
[2019-05-09] MEDS: Artificial Tears SOLN 15 ML BOTTLE BOTH EYES SCH (23:32)
[2019-05-09] MEDS: MetroNIDAZOLE 500 MG/100 ML 500 MG/100 ML BAG IVPB SCH (23:40)
[2019-05-10] MEDS: FentaNYL (PF) 1,000 MCG in 0.9 % Sodium Chloride 80 ML IVC SCH ×2 (02:15→12:00)
[2019-05-10] MEDS: Ipratropium/Albuterol Neb 3 ML IH SCH ×4 (03:04→21:20)
[2019-05-10 03:23] LABS: Basophils % 0.3 %; Eosinophils # 0.1 K/mcL (0.0-0.6); Eosinophils % 0.9 %; Hemoglobin 8.3 g/dL (11.5-15.4); Immature Granulocytes % 0.3 % (0-4); Lymphocytes # 1.4 K/mcL (0.6-4.6); Lymphocytes % 14.2 %; Mean Corpuscular HGB Conc 30.7 g/dL (31.6-35.5); Mean Corpuscular Hemoglobin 27.6 pg (28.0-33.3); Mean Corpuscular Volume 89.7 fL (83.0-100.0); Mean Platelet Volume 9.9 fL (9.4-12.4); Monocytes # 0.7 K/mcL (0.0-1.3); Monocytes % 7.2 %; Neutrophils # 7.4 K/mcL (1.6-8.9); Platelet Count 194 K/mcL (140-400); Red Blood Count 3.01 M/mcL (3.82-4.97); Red Cell Distribution Width 17.5 % (11.5-14.5); Segmented Neutrophils % 77.1 %; White Blood Count 9.6 K/mcL (4.3-11.1)
[2019-05-10 03:43] LABS: BUN/Creatinine Ratio 38 (6-26); Blood Urea Nitrogen 22 mg/dL (8-23); Calcium 7.7 mg/dL (8.6-10.3); Carbon Dioxide 26 mEq/L (23-29); Chloride 108 mEq/L (98-107); Glucose 108 mg/dL (70-105); Osmolality,Calculated 300 (280-300); Sodium 143 mEq/L (136-145); eGFR For African Americans > 60 (> 60); eGFR For Non-African Americans > 60 (> 60)
[2019-05-10] MEDS: Artificial Tears SOLN 15 ML BOTTLE BOTH EYES SCH ×5 (04:16→19:49)
[2019-05-10 04:17] LABS: ABG Base Excess 3 mEq/L (-2 to 3); ABG HCO3 27 mEq/L (21-27); ABG Oxygen Saturation 98 % (95-98); ABG PCO2 39 mmHg (35-45); ABG PH 7.46 pH Units (7.32-7.45); ABG PO2 92 mmHg (85-104); ABG TCO2 29 mEq/L (20-26); Blood Gas Modality VC; Blood Gas VT 450 cc
[2019-05-10 04:37] LABS: VBG Ionized Calcium 1.12 mmol/L (1.15-1.35)
[2019-05-10] MEDS: *HR* Heparin 5,000 UNIT/ML VIAL SQ SCH ×2 (04:55→17:00)
[2019-05-10] MEDS: Cefepime HCl 1,000 MG in Water for inj. (sterile) 10 ML IVP SCH ×3 (04:55→19:51)
[2019-05-10 06:08] LABS: Magnesium 1.9 mg/dL (1.6-2.6); Phosphorous 3.3 mg/dL (2.7-4.5)
[2019-05-10] MEDS ORDERED: Aminoglycoside Consult 1 EACH MC ONE (07:54)
[2019-05-10] MEDS: Chlorhexidine Rinse 15 ML MOUTHWASH MM SCH ×2 (08:18→19:51)
[2019-05-10] MEDS: MetroNIDAZOLE 500 MG/100 ML 500 MG/100 ML BAG IVPB SCH ×2 (08:18→17:00)
[2019-05-10] MEDS: Pantoprazole 40 MG VIAL IVP SCH (08:18)
[2019-05-10] MEDS ORDERED: *HR* Succinylcholine 200 MG/10 ML VIAL IVP ONE (09:23)
[2019-05-10] MEDS ORDERED: *HR* Etomidate 20 MG/10 ML AMPUL IVP ONE (09:23)
[2019-05-10 10:44] LABS: ABG Base Excess 2 mEq/L (-2 to 3); ABG HCO3 28 mEq/L (21-27); ABG Oxygen Saturation 95 % (95-98); ABG PCO2 49 mmHg (35-45); ABG PH 7.36 pH Units (7.32-7.45); ABG PO2 77 mmHg (85-104); ABG TCO2 29 mEq/L (20-26); Blood Gas Modality Bipap; Blood Gas VT 450 cc
[2019-05-10 18:17] LABS: BUN/Creatinine Ratio 39 (6-26); Blood Urea Nitrogen 26 mg/dL (8-23); Calcium 7.6 mg/dL (8.6-10.3); Carbon Dioxide 23 mEq/L (23-29); Chloride 110 mEq/L (98-107); Glucose 97 mg/dL (70-105); Osmolality,Calculated 303 (280-300); Potassium 3.8 mEq/L (3.5-5.1); Sodium 144 mEq/L (136-145); eGFR For African Americans > 60 (> 60); eGFR For Non-African Americans > 60 (> 60)
[2019-05-11] MEDS: Artificial Tears SOLN 15 ML BOTTLE BOTH EYES SCH ×7 (00:34→23:27)
[2019-05-11] MEDS: MetroNIDAZOLE 500 MG/100 ML 500 MG/100 ML BAG IVPB SCH ×2 (00:36→08:19)
[2019-05-11] MEDS: FentaNYL (PF) 1,000 MCG in 0.9 % Sodium Chloride 80 ML IVC SCH (02:42)
[2019-05-11] MEDS: Ipratropium/Albuterol Neb 3 ML IH SCH ×4 (03:46→21:22)
[2019-05-11 04:43] LABS: ABG Base Excess 3 mEq/L (-2 to 3); ABG HCO3 29 mEq/L (21-27); ABG Oxygen Saturation 95 % (95-98); ABG PCO2 47 mmHg (35-45); ABG PH 7.39 pH Units (7.32-7.45); ABG PO2 78 mmHg (85-104); ABG TCO2 30 mEq/L (20-26); Blood Gas Modality ASSIST CONTROL; Blood Gas VT 320 cc
[2019-05-11] MEDS: Cefepime HCl 1,000 MG in Water for inj. (sterile) 10 ML IVP SCH ×3 (05:18→20:33)
[2019-05-11] MEDS: *HR* Heparin 5,000 UNIT/ML VIAL SQ SCH ×2 (05:18→16:49)
[2019-05-11 05:37] LABS: Basophils % 0.3 %; Eosinophils # 0.1 K/mcL (0.0-0.6); Eosinophils % 1.8 %; Hematocrit 26.3 % (35.3-44.9); Hemoglobin 8.1 g/dL (11.5-15.4); Immature Granulocytes % 0.4 % (0-4); Lymphocytes # 1.4 K/mcL (0.6-4.6); Lymphocytes % 19.1 %; Mean Corpuscular HGB Conc 30.8 g/dL (31.6-35.5); Mean Corpuscular Hemoglobin 27.7 pg (28.0-33.3); Mean Corpuscular Volume 90.1 fL (83.0-100.0); Mean Platelet Volume 9.8 fL (9.4-12.4); Monocytes # 0.5 K/mcL (0.0-1.3); Monocytes % 7.6 %; Platelet Count 176 K/mcL (140-400); Red Blood Count 2.92 M/mcL (3.82-4.97); Red Cell Distribution Width 17.4 % (11.5-14.5); Segmented Neutrophils % 70.8 %; White Blood Count 7.1 K/mcL (4.3-11.1)
[2019-05-11 05:40] LABS: VBG Ionized Calcium 1.17 mmol/L (1.15-1.35)
[2019-05-11 05:49] LABS: INR 1.3
[2019-05-11 05:58] LABS: BUN/Creatinine Ratio 46 (6-26); Blood Urea Nitrogen 31 mg/dL (8-23); Carbon Dioxide 28 mEq/L (23-29); Chloride 108 mEq/L (98-107); Glucose 99 mg/dL (70-105); Osmolality,Calculated 311 (280-300); Potassium 3.5 mEq/L (3.5-5.1); Sodium 147 mEq/L (136-145); eGFR For African Americans > 60 (> 60); eGFR For Non-African Americans > 60 (> 60)
[2019-05-11 05:59] LABS: Phosphorous 3.2 mg/dL (2.7-4.5)
[2019-05-11] MEDS: Chlorhexidine Rinse 15 ML MOUTHWASH MM SCH ×2 (08:19→19:41)
[2019-05-11] MEDS: Pantoprazole 40 MG VIAL IVP SCH (08:19)
[2019-05-11] MEDS: Dexamethasone 4 MG/ML VIAL IVP SCH ×2 (11:28→17:58)
[2019-05-11] MEDS: Furosemide 40 MG/4 ML VIAL IVP SCH ×2 (14:50→20:33)
[2019-05-11] MEDS ORDERED: Perflutren Lipid Microsphere 1.3 ML in 0.9 % Sodium Chloride 8.7 ML IVP ONE (18:42)
[2019-05-12] MEDS: Dexamethasone 4 MG/ML VIAL IVP SCH ×3 (02:19→18:28)
[2019-05-12] MEDS ORDERED: *HR* LORazepam 2 MG/ML VIAL IVP ONE (02:38)
[2019-05-12] MEDS: FentaNYL (PF) 1,000 MCG in 0.9 % Sodium Chloride 80 ML IVC SCH (03:07)
[2019-05-12] MEDS: Ipratropium/Albuterol Neb 3 ML IH SCH ×4 (03:11→21:23)
[2019-05-12 04:10] LABS: VBG Ionized Calcium 1.18 mmol/L (1.15-1.35)
[2019-05-12 04:14] LABS: Basophils % 0.1 %; Hematocrit 27.5 % (35.3-44.9); Hemoglobin 8.2 g/dL (11.5-15.4); Immature Granulocytes % 0.6 % (0-4); Lymphocytes % 14.9 %; Mean Corpuscular HGB Conc 29.8 g/dL (31.6-35.5); Mean Corpuscular Hemoglobin 26.5 pg (28.0-33.3); Mean Platelet Volume 10.5 fL (9.4-12.4); Monocytes # 0.2 K/mcL (0.0-1.3); Monocytes % 3.6 %; Neutrophils # 5.4 K/mcL (1.6-8.9); Platelet Count 186 K/mcL (140-400); Red Blood Count 3.09 M/mcL (3.82-4.97); Red Cell Distribution Width 17.2 % (11.5-14.5); Segmented Neutrophils % 80.8 %; White Blood Count 6.7 K/mcL (4.3-11.1)
[2019-05-12 04:15] LABS: ABG Base Excess 5 mEq/L (-2 to 3); ABG HCO3 31 mEq/L (21-27); ABG Oxygen Saturation 95 % (95-98); ABG PCO2 51 mmHg (35-45); ABG PH 7.39 pH Units (7.32-7.45); ABG PO2 80 mmHg (85-104); ABG TCO2 32 mEq/L (20-26); Blood Gas Modality VC; Blood Gas VT 320 cc
[2019-05-12 04:28] LABS: BUN/Creatinine Ratio 50 (6-26); Blood Urea Nitrogen 29 mg/dL (8-23); Calcium 8.4 mg/dL (8.6-10.3); Carbon Dioxide 26 mEq/L (23-29); Chloride 106 mEq/L (98-107); Glucose 177 mg/dL (70-105); Osmolality,Calculated 306 (280-300); Phosphorous 2.6 mg/dL (2.7-4.5); Potassium 3.6 mEq/L (3.5-5.1); Sodium 143 mEq/L (136-145); eGFR For African Americans > 60 (> 60); eGFR For Non-African Americans > 60 (> 60)
[2019-05-12] MEDS: Artificial Tears SOLN 15 ML BOTTLE BOTH EYES SCH ×6 (04:44→23:49)
[2019-05-12] MEDS: *HR* Heparin 5,000 UNIT/ML VIAL SQ SCH ×2 (05:26→18:28)
[2019-05-12] MEDS: Cefepime HCl 1,000 MG in Water for inj. (sterile) 10 ML IVP SCH ×3 (05:26→20:26)
[2019-05-12] MEDS: Furosemide 40 MG/4 ML VIAL IVP SCH ×2 (07:53→16:59)
[2019-05-12] MEDS: Chlorhexidine Rinse 15 ML MOUTHWASH MM SCH ×2 (07:53→20:27)
[2019-05-12] MEDS: Pantoprazole 40 MG VIAL IVP SCH (07:53)
[2019-05-13] MEDS: Dexamethasone 4 MG/ML VIAL IVP SCH (01:07)
[2019-05-13] MEDS: Ipratropium/Albuterol Neb 3 ML IH SCH ×4 (03:13→22:37)
[2019-05-13 04:24] LABS: ABG Base Excess 8 mEq/L (-2 to 3); ABG HCO3 33 mEq/L (21-27); ABG Oxygen Saturation 96 % (95-98); ABG PCO2 45 mmHg (35-45); ABG PH 7.47 pH Units (7.32-7.45); ABG PO2 78 mmHg (85-104); ABG TCO2 34 mEq/L (20-26); Blood Gas Modality NIV
[2019-05-13] MEDS: Cefepime HCl 1,000 MG in Water for inj. (sterile) 10 ML IVP SCH ×3 (05:24→21:49)
[2019-05-13] MEDS: *HR* Heparin 5,000 UNIT/ML VIAL SQ SCH ×3 (05:24→22:45)
[2019-05-13] MEDS: Artificial Tears SOLN 15 ML BOTTLE BOTH EYES SCH ×2 (05:24→08:37)
[2019-05-13 05:25] LABS: Hematocrit 27.7 % (35.3-44.9); Hemoglobin 8.4 g/dL (11.5-15.4); Immature Granulocytes % 0.7 % (0-4); Lymphocytes # 0.8 K/mcL (0.6-4.6); Lymphocytes % 15.2 %; Mean Corpuscular HGB Conc 30.3 g/dL (31.6-35.5); Mean Corpuscular Hemoglobin 26.3 pg (28.0-33.3); Mean Corpuscular Volume 86.8 fL (83.0-100.0); Mean Platelet Volume 11.1 fL (9.4-12.4); Monocytes # 0.3 K/mcL (0.0-1.3); Monocytes % 4.9 %; Neutrophils # 4.4 K/mcL (1.6-8.9); Platelet Count 180 K/mcL (140-400); Red Blood Count 3.19 M/mcL (3.82-4.97); Red Cell Distribution Width 17.1 % (11.5-14.5); Segmented Neutrophils % 79.2 %; White Blood Count 5.5 K/mcL (4.3-11.1)
[2019-05-13 05:44] LABS: BUN/Creatinine Ratio 55 (6-26); Blood Urea Nitrogen 29 mg/dL (8-23); Calcium 8.4 mg/dL (8.6-10.3); Carbon Dioxide 29 mEq/L (23-29); Chloride 107 mEq/L (98-107); Glucose 219 mg/dL (70-105); Osmolality,Calculated 317 (280-300); Phosphorous 2.5 mg/dL (2.7-4.5); Potassium 3.7 mEq/L (3.5-5.1); Sodium 147 mEq/L (136-145); eGFR For African Americans > 60 (> 60); eGFR For Non-African Americans > 60 (> 60)
[2019-05-13] MEDS ORDERED: Insulin LISPRO 300 UNITS/3 ML VIAL SQ SCH (08:00)
[2019-05-13] MEDS: Furosemide 40 MG/4 ML VIAL IVP SCH (08:20)
[2019-05-13] MEDS: Pantoprazole 40 MG VIAL IVP SCH (08:21)
[2019-05-13] MEDS ORDERED: *HR* Rivaroxaban 10 MG TABLET PO SCH (11:00)
[2019-05-13] MEDS ORDERED: Cefepime HCl 1,000 MG in Water for inj. (sterile) 10 ML IVP SCH (13:00)
[2019-05-13] MEDS: Insulin LISPRO 300 UNITS/3 ML VIAL SQ SCH ×2 (13:05→21:45)
[2019-05-13] MEDS ORDERED: *HR* Heparin 5,000 UNIT/ML VIAL SQ SCH (14:00)
[2019-05-14] MEDS: Insulin LISPRO 300 UNITS/3 ML VIAL SQ SCH ×6 (00:06→21:36)
[2019-05-14] MEDS: Ipratropium/Albuterol Neb 3 ML IH SCH ×4 (03:34→22:17)
[2019-05-14] MEDS: *HR* Heparin 5,000 UNIT/ML VIAL SQ SCH ×3 (05:25→21:33)
[2019-05-14] MEDS: Cefepime HCl 1,000 MG in Water for inj. (sterile) 10 ML IVP SCH ×3 (05:26→21:33)
[2019-05-14] MEDS: Furosemide 40 MG TABLET PO SCH (08:23)
[2019-05-14] MEDS: Pantoprazole 40 MG VIAL IVP SCH (08:23)
[2019-05-14] MEDS ORDERED: Furosemide 40 MG/4 ML VIAL IVP SCH (09:00)
[2019-05-14] MEDS ORDERED: Furosemide 40 MG TABLET PO SCH (09:00)
[2019-05-14 09:19] LABS: VBG Ionized Calcium 1.17 mmol/L (1.15-1.35)
[2019-05-14 09:35] LABS: BUN/Creatinine Ratio 54 (6-26); Blood Urea Nitrogen 29 mg/dL (8-23); Calcium 9.4 mg/dL (8.6-10.3); Carbon Dioxide 31 mEq/L (23-29); Chloride 106 mEq/L (98-107); Glucose 141 mg/dL (70-105); Magnesium 2.1 mg/dL (1.6-2.6); Osmolality,Calculated 312 (280-300); Potassium 3.4 mEq/L (3.5-5.1); Sodium 147 mEq/L (136-145); eGFR For African Americans > 60 (> 60); eGFR For Non-African Americans > 60 (> 60)
[2019-05-14 10:27] LABS: Basophils % 0.3 %; Hematocrit 30.1 % (35.3-44.9); Hemoglobin 9.3 g/dL (11.5-15.4); Immature Granulocytes % 0.8 % (0-4); Lymphocytes # 0.9 K/mcL (0.6-4.6); Lymphocytes % 14.3 %; Mean Corpuscular HGB Conc 30.9 g/dL (31.6-35.5); Mean Corpuscular Hemoglobin 26.7 pg (28.0-33.3); Mean Corpuscular Volume 86.5 fL (83.0-100.0); Mean Platelet Volume 10.7 fL (9.4-12.4); Monocytes # 0.6 K/mcL (0.0-1.3); Monocytes % 9.2 %; Neutrophils # 4.6 K/mcL (1.6-8.9); Platelet Count 188 K/mcL (140-400); Red Blood Count 3.48 M/mcL (3.82-4.97); Red Cell Distribution Width 17.2 % (11.5-14.5); Segmented Neutrophils % 75.4 %; White Blood Count 6.1 K/mcL (4.3-11.1)
[2019-05-14] MEDS: Potassium Phosphate 44 MEQ in 0.9 % Sodium Chloride 250 ML IVPB PRN (11:30)
[2019-05-14 22:24] LABS: Phosphorous 3.7 mg/dL (2.7-4.5); Potassium 4.2 mEq/L (3.5-5.1)
[2019-05-15 01:53] LABS: Basophils % 0.2 %; Hematocrit 28.7 % (35.3-44.9); Hemoglobin 8.7 g/dL (11.5-15.4); Immature Granulocytes % 1.3 % (0-4); Lymphocytes # 0.7 K/mcL (0.6-4.6); Lymphocytes % 14.8 %; Mean Corpuscular HGB Conc 30.3 g/dL (31.6-35.5); Mean Corpuscular Hemoglobin 26.4 pg (28.0-33.3); Mean Platelet Volume 10.9 fL (9.4-12.4); Monocytes # 0.4 K/mcL (0.0-1.3); Monocytes % 8.6 %; Neutrophils # 3.5 K/mcL (1.6-8.9); Platelet Count 150 K/mcL (140-400); Red Cell Distribution Width 17.3 % (11.5-14.5); Segmented Neutrophils % 75.1 %; White Blood Count 4.7 K/mcL (4.3-11.1)
[2019-05-15 02:10] LABS: BUN/Creatinine Ratio 60 (6-26); Blood Urea Nitrogen 31 mg/dL (8-23); Calcium 8.5 mg/dL (8.6-10.3); Carbon Dioxide 30 mEq/L (23-29); Chloride 109 mEq/L (98-107); Glucose 109 mg/dL (70-105); Osmolality,Calculated 313 (280-300); Potassium 3.9 mEq/L (3.5-5.1); Sodium 148 mEq/L (136-145); eGFR For African Americans > 60 (> 60); eGFR For Non-African Americans > 60 (> 60)
[2019-05-15] MEDS: Ipratropium/Albuterol Neb 3 ML IH SCH ×4 (04:31→22:20)
[2019-05-15] MEDS: Cefepime HCl 1,000 MG in Water for inj. (sterile) 10 ML IVP SCH ×3 (05:29→20:00)
[2019-05-15] MEDS: *HR* Heparin 5,000 UNIT/ML VIAL SQ SCH ×3 (05:30→23:14)
[2019-05-15] MEDS: Insulin LISPRO 300 UNITS/3 ML VIAL SQ SCH ×4 (09:09→22:52)
[2019-05-15] MEDS: Pantoprazole 40 MG VIAL IVP SCH (09:10)
[2019-05-15] MEDS: Furosemide 40 MG TABLET PO SCH (09:10)
[2019-05-15 10:49] LABS: Hematocrit 29.5 % (35.3-44.9); Hemoglobin 9.1 g/dL (11.5-15.4); Mean Corpuscular HGB Conc 30.8 g/dL (31.6-35.5); Mean Corpuscular Hemoglobin 26.9 pg (28.0-33.3); Mean Corpuscular Volume 87.3 fL (83.0-100.0); Platelet Count 140 K/mcL (140-400); Red Blood Count 3.38 M/mcL (3.82-4.97); Red Cell Distribution Width 17.4 % (11.5-14.5); White Blood Count 4.9 K/mcL (4.3-11.1)
[2019-05-15] MEDS: Acetylcysteine 10% 2 ML INHSOL IH SCH ×3 (10:54→22:20)
[2019-05-15 11:00] LABS: BUN/Creatinine Ratio 55 (6-26); Blood Urea Nitrogen 30 mg/dL (8-23); Calcium 8.5 mg/dL (8.6-10.3); Carbon Dioxide 29 mEq/L (23-29); Chloride 113 mEq/L (98-107); Glucose 133 mg/dL (70-105); Osmolality,Calculated 320 (280-300); Potassium 4.1 mEq/L (3.5-5.1); Sodium 151 mEq/L (136-145); eGFR For African Americans > 60 (> 60); eGFR For Non-African Americans > 60 (> 60)
[2019-05-15] MEDS ORDERED: Melatonin 3 MG TABLET PO ONE (23:06)
[2019-05-16] MEDS ORDERED: traZODone 50 MG TABLET PO ONE (02:30)
[2019-05-16] MEDS: *HR* Heparin 5,000 UNIT/ML VIAL SQ SCH ×3 (03:00→23:42)
[2019-05-16] MEDS: Acetylcysteine 10% 2 ML INHSOL IH SCH ×4 (04:07→21:50)
[2019-05-16] MEDS: Ipratropium/Albuterol Neb 3 ML IH SCH ×4 (04:07→21:50)
[2019-05-16 06:08] LABS: Basophils % 0.2 %; Eosinophils % 0.2 %; Hemoglobin 8.9 g/dL (11.5-15.4); Immature Granulocytes % 1.2 % (0-4); Lymphocytes # 1.2 K/mcL (0.6-4.6); Lymphocytes % 21.2 %; Mean Corpuscular HGB Conc 29.7 g/dL (31.6-35.5); Mean Corpuscular Hemoglobin 26.6 pg (28.0-33.3); Mean Corpuscular Volume 89.6 fL (83.0-100.0); Mean Platelet Volume 12.2 fL (9.4-12.4); Monocytes # 0.5 K/mcL (0.0-1.3); Monocytes % 8.1 %; Platelet Count 150 K/mcL (140-400); Red Blood Count 3.35 M/mcL (3.82-4.97); Red Cell Distribution Width 17.9 % (11.5-14.5); Segmented Neutrophils % 69.1 %; White Blood Count 5.7 K/mcL (4.3-11.1)
[2019-05-16 06:23] LABS: BUN/Creatinine Ratio 52 (6-26); Blood Urea Nitrogen 31 mg/dL (8-23); Calcium 8.7 mg/dL (8.6-10.3); Carbon Dioxide 31 mEq/L (23-29); Chloride 111 mEq/L (98-107); Glucose 142 mg/dL (70-105); Osmolality,Calculated 317 (280-300); Potassium 3.4 mEq/L (3.5-5.1); Sodium 149 mEq/L (136-145); eGFR For African Americans > 60 (> 60); eGFR For Non-African Americans > 60 (> 60)
[2019-05-16] MEDS: Insulin LISPRO 300 UNITS/3 ML VIAL SQ SCH ×4 (09:23→20:20)
[2019-05-16] MEDS: Pantoprazole 40 MG VIAL IVP SCH (09:24)
[2019-05-16] MEDS: Furosemide 40 MG TABLET PO SCH (09:24)
[2019-05-16 23:16] LABS: VBG Ionized Calcium 1.09 mmol/L (1.15-1.35)
[2019-05-16 23:31] LABS: BUN/Creatinine Ratio 51 (6-26); Blood Urea Nitrogen 33 mg/dL (8-23); Carbon Dioxide 29 mEq/L (23-29); Chloride 110 mEq/L (98-107); Glucose 137 mg/dL (70-105); Magnesium 2.1 mg/dL (1.6-2.6); Osmolality,Calculated 321 (280-300); Phosphorous 2.4 mg/dL (2.7-4.5); Potassium 3.2 mEq/L (3.5-5.1); Sodium 151 mEq/L (136-145); eGFR For African Americans > 60 (> 60); eGFR For Non-African Americans > 60 (> 60)
[2019-05-17] MEDS: Potassium Phosphate 44 MEQ in 0.9 % Sodium Chloride 250 ML IVPB PRN (01:01)
[2019-05-17 02:04] LABS: Basophils % 0.2 %; Eosinophils % 0.1 %; Hematocrit 33.4 % (35.3-44.9); Hemoglobin 9.9 g/dL (11.5-15.4); Immature Granulocytes % 0.9 % (0-4); Lymphocytes # 1.6 K/mcL (0.6-4.6); Lymphocytes % 16.3 %; Mean Corpuscular HGB Conc 29.6 g/dL (31.6-35.5); Mean Corpuscular Hemoglobin 26.6 pg (28.0-33.3); Mean Corpuscular Volume 89.8 fL (83.0-100.0); Mean Platelet Volume 12.1 fL (9.4-12.4); Monocytes # 0.7 K/mcL (0.0-1.3); Monocytes % 6.9 %; Platelet Count 186 K/mcL (140-400); Red Blood Count 3.72 M/mcL (3.82-4.97); Red Cell Distribution Width 18.2 % (11.5-14.5); Segmented Neutrophils % 75.6 %
[2019-05-17 02:08] LABS: Neutrophils # 7.6 K/mcL (1.6-8.9)
[2019-05-17 02:24] LABS: BUN/Creatinine Ratio 52 (6-26); Blood Urea Nitrogen 34 mg/dL (8-23); Carbon Dioxide 28 mEq/L (23-29); Chloride 110 mEq/L (98-107); Glucose 144 mg/dL (70-105); Osmolality,Calculated 324 (280-300); Potassium 3.4 mEq/L (3.5-5.1); Sodium 152 mEq/L (136-145); eGFR For African Americans > 60 (> 60); eGFR For Non-African Americans > 60 (> 60)
[2019-05-17] MEDS: Ipratropium/Albuterol Neb 3 ML IH SCH ×4 (03:36→21:47)
[2019-05-17] MEDS: Acetylcysteine 10% 2 ML INHSOL IH SCH ×4 (03:36→21:48)
[2019-05-17] MEDS: *HR* Heparin 5,000 UNIT/ML VIAL SQ SCH ×3 (04:44→21:59)
[2019-05-17 07:03] LABS: BUN/Creatinine Ratio 49 (6-26); Blood Urea Nitrogen 33 mg/dL (8-23); Carbon Dioxide 29 mEq/L (23-29); Chloride 110 mEq/L (98-107); Glucose 132 mg/dL (70-105); Osmolality,Calculated 317 (280-300); Potassium 4.2 mEq/L (3.5-5.1); Sodium 149 mEq/L (136-145); eGFR For African Americans > 60 (> 60); eGFR For Non-African Americans > 60 (> 60)
[2019-05-17] MEDS: Furosemide 40 MG TABLET PO SCH (07:55)
[2019-05-17] MEDS: Pantoprazole 40 MG VIAL IVP SCH (07:56)
[2019-05-17] MEDS: Insulin LISPRO 300 UNITS/3 ML VIAL SQ SCH ×4 (07:57→21:33)
[2019-05-17] MEDS: *HR* HYDROcodone/Acet 5/325 mg TABLET PO PRN (11:58)
[2019-05-18] MEDS: Ipratropium/Albuterol Neb 3 ML IH SCH ×4 (04:07→21:12)
[2019-05-18] MEDS: Acetylcysteine 10% 2 ML INHSOL IH SCH ×4 (04:08→21:13)
[2019-05-18] MEDS: *HR* Heparin 5,000 UNIT/ML VIAL SQ SCH ×3 (05:59→22:00)
[2019-05-18 08:41] LABS: Hematocrit 35.9 % (35.3-44.9); Hemoglobin 10.9 g/dL (11.5-15.4); Mean Corpuscular HGB Conc 30.4 g/dL (31.6-35.5); Mean Corpuscular Hemoglobin 26.6 pg (28.0-33.3); Mean Corpuscular Volume 87.6 fL (83.0-100.0); Mean Platelet Volume 12.6 fL (9.4-12.4); Nucleated Red Blood Cells 0.1 /100 WBC (0); Platelet Count 281 K/mcL (140-400); White Blood Count 27.2 K/mcL (4.3-11.1)
[2019-05-18] MEDS: Furosemide 40 MG TABLET PO SCH (08:46)
[2019-05-18] MEDS: Pantoprazole 40 MG VIAL IVP SCH (08:46)
[2019-05-18] MEDS: Insulin LISPRO 300 UNITS/3 ML VIAL SQ SCH ×4 (08:46→20:51)
[2019-05-18 08:58] LABS: Calcium 8.5 mg/dL (8.6-10.3); Potassium 4.2 mEq/L (3.5-5.1)
[2019-05-18 09:29] LABS: Anisocytosis 1+ (Not Present); Lymphocytes # 2.7 K/mcL (0.6-4.6); Monocytes # 0.5 K/mcL (0.0-1.3); Neutrophils # 23.9 K/mcL (1.6-8.9); Platelet Estimate Normal (Normal); Toxic Granulation Present (Not Present); Toxic Vacuolation Present (Not Present)
[2019-05-18] MEDS ORDERED: Ringers Solution, Lactated 1,000 ML IVC ONE (11:08)
[2019-05-18] MEDS ORDERED: Ringers Solution, Lactated 1,000 ML ONE (11:12)
[2019-05-18] MEDS: Ringers Solution, Lactated 1,000 ML IVC SCH ×2 (12:24→23:33)
[2019-05-18] MEDS ORDERED: E-Z-PAQUE (BARIUM SULF) SUSP 1 BOTTLE PO ONE (15:42)
[2019-05-18] MEDS ORDERED: E-Z-HD (BARIUM SULF) SUSPENSION PO ONE (15:42)
[2019-05-18 17:56] LABS: Basophils # 0.2 K/mcL (0.0-0.2); Basophils % 0.5 %; Hematocrit 36.6 % (35.3-44.9); Hemoglobin 11.1 g/dL (11.5-15.4); Immature Granulocytes % 2.7 % (0-4); Lymphocytes # 3.2 K/mcL (0.6-4.6); Mean Corpuscular HGB Conc 30.3 g/dL (31.6-35.5); Mean Corpuscular Hemoglobin 26.6 pg (28.0-33.3); Mean Corpuscular Volume 87.6 fL (83.0-100.0); Mean Platelet Volume 11.9 fL (9.4-12.4); Monocytes # 1.5 K/mcL (0.0-1.3); Monocytes % 4.5 %; Neutrophils # 26.6 K/mcL (1.6-8.9); Nucleated Red Blood Cells 0.1 /100 WBC (0); Platelet Count 270 K/mcL (140-400); Red Blood Count 4.18 M/mcL (3.82-4.97); Red Cell Distribution Width 19.3 % (11.5-14.5); Segmented Neutrophils % 82.3 %
[2019-05-18 18:01] LABS: White Blood Count 32.3 K/mcL (4.3-11.1)
[2019-05-18] MEDS ORDERED: 0.9 % Sodium Chloride 1,000 ML IVC ONE (18:16)
[2019-05-18 18:17] LABS: Calcium 8.5 mg/dL (8.6-10.3); Potassium 4.1 mEq/L (3.5-5.1)
[2019-05-18] MEDS ORDERED: Cefepime HCl 2,000 MG in Water for inj. (sterile) 20 ML IVP SCH (19:00)
[2019-05-18 19:49] LABS: Bilirubin,Urine Small (Negative); Blood,Urine Moderate (Negative); Clarity,Urine Cloudy (Clear); Color,Urine Dark Yellow (Yellow); Glucose,Urine (UA) Normal (Normal); Ketones,Urine Negative (Negative); Leukocyte Esterase,Urine Small (Negative); Nitrite,Urine Negative (Negative); Protein,Urine 30 mg/dL (Neg-Trace); Specific Gravity,Urine 1.017 (1.010-1.025); Urobilinogen,Urine Normal (Normal)
[2019-05-18 19:51] LABS: Bacteria,Urine None Seen per hpf (None-Few); Hyaline Casts,Urine None Seen per lpf (None-Few); Squamous Epithelial Cell,Urine Many per lpf (None-Few)
[2019-05-18 20:08] LABS: RBC,Urine 15-30 per hpf (0-3); Yeast,Urine Few per hpf (None Seen)
[2019-05-18] MEDS ORDERED: 0.9 % Sodium Chloride 2,000 ML ONE (20:13)
[2019-05-18] MEDS: MetroNIDAZOLE 500 MG/100 ML 500 MG/100 ML BAG IVPB SCH (22:28)
[2019-05-19] MEDS: *HR* HYDROcodone/Acet 5/325 mg TABLET PO PRN (00:28)
[2019-05-19 01:25] LABS: ABG Base Excess 3 mEq/L (-2 to 3); ABG HCO3 25 mEq/L (21-27); ABG Oxygen Saturation 96 % (95-98); ABG PCO2 29 mmHg (35-45); ABG PH 7.54 pH Units (7.32-7.45); ABG PO2 69 mmHg (85-104); ABG TCO2 26 mEq/L (20-26)
[2019-05-19] MEDS ORDERED: *HR* LORazepam 2 MG/ML VIAL IVP ONE (01:32)
[2019-05-19] MEDS: Acetylcysteine 10% 2 ML INHSOL IH SCH ×4 (03:09→21:24)
[2019-05-19] MEDS: Ipratropium/Albuterol Neb 3 ML IH SCH ×4 (03:09→21:24)
[2019-05-19] MEDS ORDERED: 0.9 % Sodium Chloride 1,000 ML IV ONE (03:16)
[2019-05-19] MEDS ORDERED: 0.9 % Sodium Chloride 1,000 ML ONE (03:18)
[2019-05-19] MEDS: *HR* FentaNYL (PF) 100 MCG/2 ML VIAL IVP PRN ×2 (03:51→05:37)
[2019-05-19 04:13] LABS: VBG HCO3 25 mEq/L (21-27); VBG Ionized Calcium 1.06 mmol/L (1.15-1.35); VBG PCO2 32 mmHg (41-51); VBG PH 7.51 pH Units (7.32-7.42); VBG PO2 207 mmHg (25-50)
[2019-05-19 04:22] LABS: Mean Platelet Volume 12.4 fL (9.4-12.4)
[2019-05-19 04:23] LABS: Hemoglobin 10.2 g/dL (11.5-15.4); Mean Corpuscular Volume 89.9 fL (83.0-100.0); Nucleated Red Blood Cells 0.2 /100 WBC (0); Platelet Count 241 K/mcL (140-400); Red Blood Count 3.78 M/mcL (3.82-4.97); Red Cell Distribution Width 19.2 % (11.5-14.5)
[2019-05-19 04:33] LABS: White Blood Count 31.8 K/mcL (4.3-11.1)
[2019-05-19 04:37] LABS: Albumin/Globulin Ratio 0.7 (1.1-2.2); Bilirubin,Total 0.7 mg/dL (0.3-1.0); Calcium 7.8 mg/dL (8.6-10.3); Globulin 2.7 g/dL (2.4-3.5); Magnesium 1.8 mg/dL (1.6-2.6); Phosphorous 3.8 mg/dL (2.7-4.5); Total Protein 4.7 g/dL (6.4-8.9)
[2019-05-19 04:39] LABS: Troponin I 0.07 ng/mL (< 0.04)
[2019-05-19 04:59] LABS: Lymphocytes # 3.8 K/mcL (0.6-4.6); Monocytes # 2.5 K/mcL (0.0-1.3); Neutrophils # 25.4 K/mcL (1.6-8.9); Platelet Estimate Normal (Normal)
[2019-05-19 05:00] LABS: Anisocytosis 1+ (Not Present); Polychromasia 1+ (Not Present)
[2019-05-19] MEDS: *HR* Heparin 5,000 UNIT/ML VIAL SQ SCH ×2 (05:33→17:48)
[2019-05-19] MEDS: MetroNIDAZOLE 500 MG/100 ML 500 MG/100 ML BAG IVPB SCH (05:33)
[2019-05-19] MEDS ORDERED: Morphine Sulfate 2 MG/ML SYRINGE IVP ONE (05:54)
[2019-05-19] MEDS ORDERED: D5% in Water 1,000 ML IVC SCH ×2 (08:00→18:46)
[2019-05-19] MEDS: Pantoprazole 40 MG VIAL IVP SCH (08:17)
[2019-05-19] MEDS: Dexmedetomidine HCl 400 MCG/100 ML MLS IVC SCH ×4 (08:18→22:57)
[2019-05-19] MEDS: Insulin LISPRO 300 UNITS/3 ML VIAL SQ SCH ×3 (08:31→18:02)
[2019-05-19] MEDS ORDERED: Ringers Solution, Lactated 1,000 ML IVC ONE (08:38)
[2019-05-19] MEDS ORDERED: levoFLOXacin 750 MG/150 ML 750 MG/150 ML BAG IVPB SCH (09:00)
[2019-05-19] MEDS ORDERED: Cefepime HCl 2,000 MG in Water for inj. (sterile) 20 ML IVP SCH (09:00)
[2019-05-19] MEDS: D5% in Water 1,000 ML IVC SCH ×2 (10:00→18:19)
[2019-05-19] MEDS ORDERED: *HR* Norepinephrine 4 MG/4 ML VIAL IVC ONE (10:18)
[2019-05-19] MEDS ORDERED: D5% in Water 250 ML ONE (10:18)
[2019-05-19] MEDS ORDERED: Norepinephrine 4 MG in 0.9 % Sodium Chloride 250 ML IVC SCH (10:30)
[2019-05-19] MEDS ORDERED: Ringers Solution, Lactated 1,000 ML ONE (10:48)
[2019-05-19] MEDS ORDERED: D5% in Water 1,000 ML IVC PRN (11:27)
[2019-05-19] MEDS ORDERED: Dextrose Gel 15 GM/37.5 ML TUBE PO PRN ×2 (11:27)
[2019-05-19] MEDS ORDERED: *HR* Dextrose 50 % in Water (Syg) 50 ML SYRINGE IVP PRN (11:27)
[2019-05-19] MEDS ORDERED: Artificial Tears SOLN 15 ML BOTTLE BOTH EYES PRN (11:29)
[2019-05-19] MEDS ORDERED: 0.9 % Sodium Chloride 500 ML ONE (11:32)
[2019-05-19] MEDS ORDERED: Isovue-370 500 ML BOTTLE IVP ONE (11:34)
[2019-05-19] MEDS: Artificial Tears SOLN 15 ML BOTTLE BOTH EYES SCH ×3 (12:03→18:09)
[2019-05-19 12:07] LABS: Calcium 7.8 mg/dL (8.6-10.3); Magnesium 1.8 mg/dL (1.6-2.6); Potassium 4.4 mEq/L (3.5-5.1)
[2019-05-19] MEDS: FentaNYL (PF) 1,000 MCG in 0.9 % Sodium Chloride 80 ML IVC SCH (12:07)
[2019-05-19] MEDS: Vasopressin 40 UNIT in D5% in Water 100 ML IVC SCH (12:15)
[2019-05-19 12:39] LABS: Albumin/Globulin Ratio 0.7 (1.1-2.2); Bilirubin,Total 0.7 mg/dL (0.3-1.0); Globulin 2.8 g/dL (2.4-3.5); Phosphorous 4.4 mg/dL (2.7-4.5); Total Protein 4.8 g/dL (6.4-8.9); Troponin I 0.12 ng/mL (< 0.04)
[2019-05-19 12:47] LABS: INR 1.5
[2019-05-19 12:48] LABS: Red Cell Distribution Width 19.5 % (11.5-14.5)
[2019-05-19 12:49] LABS: Activated Partial Thrombo Time 31.2 Seconds (26.0-36.0)
[2019-05-19 12:50] LABS: Hematocrit 35.1 % (35.3-44.9); Hemoglobin 10.3 g/dL (11.5-15.4); Mean Corpuscular HGB Conc 29.3 g/dL (31.6-35.5); Mean Corpuscular Hemoglobin 26.8 pg (28.0-33.3); Mean Corpuscular Volume 91.2 fL (83.0-100.0); Mean Platelet Volume 13.1 fL (9.4-12.4); Monocytes # 1.5 K/mcL (0.0-1.3); Nucleated Red Blood Cells 0.2 /100 WBC (0); Platelet Count 300 K/mcL (140-400); Red Blood Count 3.85 M/mcL (3.82-4.97)
[2019-05-19 12:56] LABS: White Blood Count 38.1 K/mcL (4.3-11.1)
[2019-05-19 13:19] LABS: Anisocytosis 1+ (Not Present); Lymphocytes # 3.1 K/mcL (0.6-4.6); Neutrophils # 33.5 K/mcL (1.6-8.9); Platelet Estimate Normal (Normal)
[2019-05-19] MEDS ORDERED: *HR* Etomidate 40 MG/20 ML VIAL IVP ONE (13:24)
[2019-05-19 13:32] LABS: ABG Base Excess -1 mEq/L (-2 to 3); ABG HCO3 24 mEq/L (21-27); ABG Oxygen Saturation 98 % (95-98); ABG PCO2 38 mmHg (35-45); ABG PO2 101 mmHg (85-104); ABG TCO2 25 mEq/L (20-26); Blood Gas VT 500 cc
[2019-05-19] MEDS ORDERED: Calcium Gluconate 1gm/50mL 1 GM/50 ML BAG IVPB PRN (14:03)
[2019-05-19] MEDS ORDERED: Calcium Chloride 4,000 MG in 0.9 % Sodium Chloride 1,000 ML CRRT SCH (14:15)
[2019-05-19] MEDS ORDERED: *HR* Heparin 5,000 UNIT/ML VIAL ONE (14:18)
[2019-05-19] MEDS ORDERED: 0.9 % Sodium Chloride Mini Bag 100 ML ONE (15:12)
[2019-05-19] MEDS: PrismaSATE BGK 4/2.5 5,000 ML CRRT SCH ×4 (15:14→20:16)
[2019-05-19] MEDS ORDERED: MetroNIDAZOLE 500 MG/100 ML 500 MG/100 ML BAG IVPB SCH (16:00)
[2019-05-19] MEDS ORDERED: Phenylephrine 10 MG in 0.9 % Sodium Chloride 250 ML IVC SCH (16:15)
[2019-05-19 16:32] LABS: ABG Ionized Calcium 0.99 mmol/L (1.15-1.35)
[2019-05-19] MEDS ORDERED: Phenylephrine 50 MG in 0.9 % Sodium Chloride 250 ML IVC SCH (17:30)
[2019-05-19] MEDS: Meropenem 1,000 MG in Water for inj. (sterile) 10 ML IVP SCH (17:58)
[2019-05-19 17:59] LABS: Hematocrit 39.6 % (35.3-44.9)
[2019-05-19 18:00] LABS: Hemoglobin 11.9 g/dL (11.5-15.4)
[2019-05-19] MEDS ORDERED: MEROPENEM IVP SCH ×2 (18:00)
[2019-05-19] MEDS ORDERED: WATER FOR INJ IVP SCH ×2 (18:00)
[2019-05-19 18:15] LABS: Calcium 7.7 mg/dL (8.6-10.3); Potassium 4.9 mEq/L (3.5-5.1)
[2019-05-19] MEDS: Norepinephrine 8 MG in 0.9 % Sodium Chloride 250 ML IVC SCH (19:08)
[2019-05-19] MEDS: Sodium Bicarbonate 150 MEQ in D5% in Water 1,000 ML IVC SCH (19:43)
[2019-05-19] MEDS ORDERED: Cefepime HCl 1,000 MG in Water for inj. (sterile) 10 ML IVP SCH (20:00)
[2019-05-19] MEDS: Chlorhexidine Rinse 15 ML MOUTHWASH MM SCH (20:02)
[2019-05-19 21:46] LABS: ABG Base Excess -9 mEq/L (-2 to 3); ABG HCO3 14 mEq/L (21-27); ABG Oxygen Saturation 100 % (95-98); ABG PCO2 25 mmHg (35-45); ABG PH 7.36 pH Units (7.32-7.45); ABG PO2 172 mmHg (85-104); ABG TCO2 15 mEq/L (20-26); Blood Gas Modality AF; Blood Gas VT 500 cc
[2019-05-19 23:24] LABS: Hematocrit 38.4 % (35.3-44.9); Hemoglobin 11.7 g/dL (11.5-15.4)
[2019-05-20] MEDS: Artificial Tears SOLN 15 ML BOTTLE BOTH EYES SCH ×4 (00:26→11:09)
[2019-05-20] MEDS: Insulin LISPRO 300 UNITS/3 ML VIAL SQ SCH ×4 (00:26→11:09)
[2019-05-20] MEDS: Norepinephrine 8 MG in 0.9 % Sodium Chloride 250 ML IVC SCH ×2 (01:38→07:33)
[2019-05-20] MEDS: PrismaSATE BGK 4/2.5 5,000 ML CRRT SCH ×4 (01:49→07:31)
[2019-05-20] MEDS: Acetylcysteine 10% 2 ML INHSOL IH SCH ×3 (03:23→15:56)
[2019-05-20] MEDS: Ipratropium/Albuterol Neb 3 ML IH SCH ×3 (03:23→15:57)
[2019-05-20 03:47] LABS: Nucleated Red Blood Cells 0.3 /100 WBC (0); Red Cell Distribution Width 19.4 % (11.5-14.5)
[2019-05-20 03:49] LABS: Hematocrit 36.9 % (35.3-44.9); Hemoglobin 11.3 g/dL (11.5-15.4); Mean Corpuscular HGB Conc 30.6 g/dL (31.6-35.5); Mean Corpuscular Hemoglobin 27.8 pg (28.0-33.3); Mean Corpuscular Volume 90.7 fL (83.0-100.0); Mean Platelet Volume 11.9 fL (9.4-12.4); Platelet Count 245 K/mcL (140-400); Red Blood Count 4.07 M/mcL (3.82-4.97)
[2019-05-20 03:52] LABS: VBG Ionized Calcium 0.94 mmol/L (1.15-1.35)
[2019-05-20 03:54] LABS: White Blood Count 38.2 K/mcL (4.3-11.1)
[2019-05-20] MEDS: Calcium Gluconate 1gm/50mL 1 GM/50 ML BAG IVPB PRN ×2 (04:21→10:56)
[2019-05-20 04:23] LABS: Alanine Aminotransferase 104 Units/L (7-52); Albumin 1.9 g/dL (3.5-5.7); Albumin/Globulin Ratio 0.7 (1.1-2.2); Alkaline Phosphatase 160 Units/L (34-104); Aspartate Amino Transferase 292 Units/L (13-39); BUN/Creatinine Ratio 33 (6-26); Bilirubin,Total 0.7 mg/dL (0.3-1.0); Blood Urea Nitrogen 33 mg/dL (8-23); Carbon Dioxide 17 mEq/L (23-29); Chloride 108 mEq/L (98-107); Globulin 2.7 g/dL (2.4-3.5); Glucose 190 mg/dL (70-105); Osmolality,Calculated 300 (280-300); Phosphorous 3.5 mg/dL (2.7-4.5); Potassium 4.6 mEq/L (3.5-5.1); Sodium 139 mEq/L (136-145); Total Protein 4.6 g/dL (6.4-8.9); eGFR For African Americans > 60 (> 60); eGFR For Non-African Americans 54 (> 60)
[2019-05-20 05:06] LABS: ABG Base Excess -3 mEq/L (-2 to 3); ABG HCO3 21 mEq/L (21-27); ABG Oxygen Saturation 99 % (95-98); ABG PCO2 32 mmHg (35-45); ABG PH 7.42 pH Units (7.32-7.45); ABG PO2 124 mmHg (85-104); ABG TCO2 22 mEq/L (20-26); Blood Gas Modality AF; Blood Gas VT 500 cc
[2019-05-20] MEDS: Meropenem 1,000 MG in Water for inj. (sterile) 10 ML IVP SCH (05:15)
[2019-05-20] MEDS: 0.9 % Sodium Chloride 1,000 ML PRIME SCH ×2 (05:26→05:28)
[2019-05-20] MEDS: *HR* Heparin 5,000 UNIT/ML VIAL IVP PRN ×2 (05:27→05:28)
[2019-05-20 05:36] LABS: Lymphocytes # 6.9 K/mcL (0.6-4.6); Neutrophils # 31.3 K/mcL (1.6-8.9)
[2019-05-20] MEDS: Sodium Bicarbonate 150 MEQ in D5% in Water 1,000 ML IVC SCH (07:30)
[2019-05-20] MEDS: FentaNYL (PF) 1,000 MCG in 0.9 % Sodium Chloride 80 ML IVC SCH (07:32)
[2019-05-20] MEDS: Vasopressin 40 UNIT in D5% in Water 100 ML IVC SCH (07:33)
[2019-05-20] MEDS: Pantoprazole 40 MG VIAL IVP SCH (08:38)
[2019-05-20] MEDS: Dexmedetomidine HCl 400 MCG/100 ML MLS IVC SCH (08:38)
[2019-05-20] MEDS: Chlorhexidine Rinse 15 ML MOUTHWASH MM SCH (08:38)
[2019-05-20 10:32] LABS: ABG Ionized Calcium 1.02 mmol/L (1.15-1.35)
[2019-05-20] MEDS ORDERED: *HR* Heparin 5,000 UNIT/ML VIAL ONE (11:52)
[2019-05-20] MEDS ORDERED: *HR* LORazepam 2 MG/ML VIAL ONE (13:17)
[2019-05-20 13:19] VITALS: BP 31/28
[2019-05-20] MEDS ORDERED: *HR* LORazepam 2 MG/ML VIAL IVP PRN (13:20)
[2019-05-20] MEDS ORDERED: Aminoglycoside Consult 1 EACH MC ONE (13:24)
[2019-05-20] MEDS ORDERED: *HR* Heparin 5,000 UNIT/ML VIAL SQ SCH (14:00)
[2019-05-24 08:27] LABS: Acinetobacter baumannii by PCR Not Detected (Not Detect); Candida albicans by PCR Not Detected (Not Detect); Candida glabrata by PCR DETECTED (Not Detect); Candida krusei by PCR Not Detected (Not Detect); Candida parapsilosis by PCR Not Detected (Not Detect); Candida tropicalis by PCR Not Detected (Not Detect); Enterobacter cloacae Cmplx PCR Not Detected (Not Detect); Enterobacteriaceae by PCR Not Detected (Not Detect); Enterococcus by PCR Not Detected (Not Detect); Escherichia coli by PCR Not Detected (Not Detect); Klebsiella oxytoca by PCR Not Detected (Not Detect); Klebsiella pneumoniae by PCR Not Detected (Not Detect); Proteus by PCR Not Detected (Not Detect); Pseudomonas aeruginosa by PCR Not Detected (Not Detect); Serratia marcescens by PCR Not Detected (Not Detect); Staphylococcus aureus by PCR Not Detected (Not Detect); Staphylococcus by PCR Not Detected (Not Detect); Streptococcus agalactiae(B)PCR Not Detected (Not Detect); Streptococcus by PCR Not Detected (Not Detect); Streptococcus pneumoniae PCR Not Detected (Not Detect); Streptococcus pyogenes (A) PCR Not Detected (Not Detect)
== END 2019-05-20 13:25 | disposition expired | DRG 871 ==
LOC: SUATTDRO 14:29 → ICNU 14:29 → 2NNU 05-13 14:01 → ICNU 05-18 21:41
PROVIDERS: ADMIT Internal Medicine; ATTEND Internal Medicine